=== PATIENT | male | born 1945 | race Caucasian/White ===

== ENCOUNTER 2017-02-06 09:41 | Observation (INO) ==
[2017-02-06] MEDS ORDERED: ONDANSETRON 4 MG/2 ML VIAL IV PRN ×2 (10:02→12:12)
[2017-02-06] MEDS ORDERED: ALUM/MAG/SIMETH/LIDO VISC 1:1 30 ML BOTTLE PO STA (10:02)
[2017-02-06] MEDS ORDERED: MORPHINE 2 MG/1 ML SYRINGE IV PRN (10:02)
[2017-02-06] MEDS ORDERED: ENOXAPARIN 100 MG/ML SYRINGE SUBCUT STA (10:02)
[2017-02-06] MEDS ORDERED: NITROGLYCERIN SL 0.4 MG TABLET SL PRN (10:02)
[2017-02-06] MEDS ORDERED: ASPIRIN 325 MG TABLET PO STA (10:02)
[2017-02-06] MEDS ORDERED: NITROGLYCERIN 2% OINT 1 INCH/GM PACK TOP STA (10:02)
--- NOTE | 2017-02-06 10:05 | EKG Report ---
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
--- NOTE | 2017-02-06 10:19 | Emergency Department Note ---
Wale Fonseca Manpreet, am scribing for, and in the presence of, Jasper Ledezma MD 10: 06. Brisa Fonseca James D, MD, personally performed the services described in this documentation, ascribed by Vincent Echevarria in my presence, and it is both accurate and complete . Arrival - Arrival Chief Complaint: Chest Pain Stated Complaint: chest pain ED Nursing Triage Note: Left sided chest pain onset x 1 week - pt denies any SOB - pt states that he does have stents and is a pt of Dr Preciado. 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 Pt states the pain has been there piror to this week but worsened over this past week. Pt denies SOB, N/V/D, or anything to worsen this pain. Pt took 2 NTG's en route to the ED with reilef but the pain has came back. Pt states the pain "lasts a second or two then goes but comes about in about 3 or 4 minutes." Pt has had cardiac stents before but states this pain is different from the pain prior to the stents. Pt's spool cleaner hand is Dr. Preciado. No other pains/complaints reported to the ED. Onset (ago): week(s) Consistency: constant, intermittent Severity: moderate Severity scale (1-10): 4 Quality: sharp Allergies/Adverse Reactions: Allergies Allergy/AdvReac Type Severity Reaction Status Date / Time No Known Allergies Allergy Verified 11/19/16 12:01 Home Medications: Home Medications Medication Instructions Recorded Confirmed Type Atorvastatin [Lipitor] 80 mg PO BEDTIME 11/17/16 11/19/16 History Carvedilol 12.5 mg PO BID 11/17/16 11/19/16 History Clopidogrel [Plavix] 75 mg PO DAILY 11/17/16 11/19/16 History Gabapentin Cap/Tab [Neurontin 600 mg PO BID 11/17/16 11/19/16 History Cap/Tab] Glimepiride 4 mg PO DAILY 11/17/16 11/19/16 History Insulin Lispro Prot/Lisp 75/25 25 unit SUBCUT QPM 11/17/16 11/19/16 History [HumaLOG Mix 75/25] Insulin Lispro Prot/Lisp 75/25 75 unit SUBCUT QAM 11/17/16 11/19/16 History [HumaLOG Mix 75/25] Nitroglycerin [Nitroglycerin SL 0.4 mg SL Q5M PRN 11/17/16 11/19/16 History Tab] Omeprazole 40 mg PO BID 11/17/16 11/19/16 History Valsartan/Hydrochlorothiazide 1 each PO DAILY 11/17/16 11/19/16 History [Valsartan-Hctz 320-25 mg Tab] amLODIPine [Norvasc] 10 mg PO DAILY 11/17/16 11/19/16 History hydrALAZINE TAB [Apresoline Tab] 100 mg PO TID 11/17/16 11/19/16 History Aspirin EC Tab 81 mg PO DAILY #30 tablet 11/20/16 Rx Potassium Chloride 20 meq PO BID #60 tablet 11/20/16 Rx Review of System - Review of System ROS unobtainable: due to encephalopathy - Review of System Constitutional: Absent: chills, diaphoresis, fever Respiratory: Absent: cough, respiratory distress, wheezing Cardiovascular: Present: chest pain Gastrointestinal: Absent: abdominal pain, nausea, vomiting, diarrhea Musculoskeletal: Absent: arm pain, back pain Neurological: Absent: headache, weakness, numbness, paresthesias Medical,Surgical,& Family Hx - Medical History Cardio: History of: Hypertension, Cardiovascular Problems (cardiac stents 2016) Neurology: History of: Cerebrovascular Accident (2014) No history of: Seizures Endocrine: History of: Diabetes Mellitus (IDDM), Dyslipidemia Rheumatology: History of;: Gout Respiratory: History of: Obstructive Sleep Apnea Genitourinary: History of: Kidney Stones Gastrointestinal: History of: GERD - Surgical History Abdominal Surgeries: Surgical HX of: Colonoscopy, EGD - Family History Family History: Reports;: Family Heart Disease Denies;: Family Cancer, Family Diabetes, Family Stroke - Social History Smoking Status: Never smoker Frequency of Alcohol Use: None Type of Drug Use: None Exam Vital Signs: Vital Signs Temperature 96.9 F L 02/06/17 09:45 Pulse Rate 56 L 02/06/17 09:45 Respiratory Rate 20 02/06/17 09:45 Blood Pressure 141/69 02/06/17 09:45 O2 Sat by Pulse Oximetry 97 02/06/17 09:45 GENERAL: This is a well-nourished well-developed overly obese white male in no apparent distress. VITAL SIGNS: Reviewed HEENT: Head is atraumatic and normocephalic. Pupils are equal round react to light. Extraocular movements are intact. Oropharynx is benign with moist mucous membranes. NECK: Neck is soft and supple without tenderness. There are no masses. There is no lymphadenopathy. No rash on chest wall. LUNGS: Lungs are clear to auscultation. Chest rises symmetrically. There is no chest wall tenderness. CV: Heart is regular rate and rhythm without murmurs rubs or gallops. ABDOMEN: Abdomen is soft, nontender to palpation. There are no abdominal abnormal masses palpated. There is no organomegaly. Bowel sounds are present and active. SKIN: Skin is warm and dry. No rash. EXTREMITIES: Patient has full range of motion without tenderness. There is no pedal edema. NEUROLOGIC: Awake alert and oriented 4. Cranial nerves II through XII are intact. Motor is 5 over 5 in all extremities bilaterally. Deep tendon reflexes are 2+ and bilaterally equal. Course - Consultations Consultation #1: Discussed with hospitalist. Patient will be admitted to their service. Time: 11:26 Results - Labs CBC & BMP: 02/06/17 10:16 02/06/17 10:16 Lab Results: I have reviewed the patients labs Labs: Laboratory Tests 02/06/17 10:16 Troponin I < 0.015 - EKG EKG results: interpreted by ERMD - Impressions EKG: Sinus bradycardia with first-degree AV block, left axis deviation, nonspecific ST-T wave changes. Disposition Clinical Impression: Chest pain, Coronary artery disease, Diabetes mellitus, Essential hypertension Case discussed with: patient Condition: Stable
--- NOTE | 2017-02-06 10:25 | XRay Report ---
XR chest 2V Indication: Chest pain Comparison: 19 November 2016 Findings: The heart and mediastinum are normal in size and configuration. The pulmonary vascularity is normal in caliber. No lung infiltrates, effusions, pneumothorax or other abnormality is demonstrated. Impression: No acute cardiopulmonary findings. PROCEDURE INTERPRETED AT [facility] DEPARTMENT OF RADIOLOGY Final Report Signed by: Dr. Jason Cabrera
[2017-02-06] MEDS ORDERED: NITROGLYCERIN 2% OINT 1 INCH/GM PACK TOP ONE (10:30)
[2017-02-06] MEDS ORDERED: ASPIRIN 325 MG TABLET ONE (10:30)
[2017-02-06] MEDS ORDERED: ENOXAPARIN 120 MG/0.8 ML SYRINGE SUBCUT ONE (10:30)
[2017-02-06] MEDS ORDERED: ALUM/MAG/SIMETH/LIDO VISC 1:1 30 ML BOTTLE PO ONE (10:31)
[2017-02-06 10:34] LABS: Basophils # 0.1 10*3/uL (0.0-0.2); Basophils % 0.6 % (0.0-0.8); Eosinophils # 0.1 10*3/uL (0.0-0.87); Eosinophils % 1.8 % (0.00-10.9); Hematocrit 45.2 VOL% (42.0-52.0); Hemoglobin 14.7 GM/DL (14.0-18.0); Immature Granulocytes % 0.5 %; Immature Granulocytes Absolute 0.04 #; Lymphocytes % 12.8 % (21.2-54.2); Mean Corpuscular HGB Conc 32.5 GM/DL (32-36); Mean Corpuscular Hemoglobin 26 PG (27-34); Mean Corpuscular Volume 81.3 FL (87-102); Mean Platelet Volume 10.9 FL (9.6-12.0); Monocytes # 0.4 10*3/uL (0.11-0.8); Monocytes % 5.6 % (1.7-12.7); Neutrophils # 6.2 10*3/uL (1.4-7.4); Neutrophils % 78.7 % (38.7-73.9); Platelet Count 237 T/CUMM (130-400); Red Blood Count 5.56 MC/CUMM (3.8-5.5); Red Cell Distribution Width 14.7 % (9.3-17.3); White Blood Count 7.9 T/CUMM (4-12)
[2017-02-06 10:55] LABS: Albumin 3.2 G/DL (3.4-5.0); Bilirubin,Total 0.7 MG/DL (0.2-1.0); Calcium 8.7 MG/DL (8.5-10.1); Osmolality,Calculated 288.3 MOS/KG (273-304); Potassium 4.3 MMOL/L (3.5-5.1); Total Protein 6.4 G/DL (6.4-8.3)
[2017-02-06 11:02] LABS: PT Patient Result 10.4 SECS
--- NOTE | 2017-02-06 12:05 | Hospitalist History & Physical ---
<Wlila Singh - Last Filed: 02/06/17 11:52> Assessment and Plan - Time spent with patient Time spent with patient: Greater than 30 minutes (1) Chest pain Status: Acute Assessment and plan: Admit 02/06/17 repeat serial troponin repeat EKG in a.m. repeat labs in a.m. consult cardiology (Dr Preciado pt) ECHO Lipid panel in a.m. A1c in a.m. will discuss with Dr May for further recommendations with care. Current Visit: Yes (2) Coronary artery disease Status: Chronic Current Visit: Yes (3) Diabetes mellitus Status: Chronic Current Visit: Yes History of Present Illness Chief complaint: chest pain History of present illness: Mr. Lemus is a 71 year old white male w/PMHx Diabetes, HTN, ESPERANZA, Heart Catherization October/2016 with stents, Gout, CVA 2015 presented to the ED for further evaluation of sharp left sided chest pain that does not radiate to arm, shoulder, jaw that has been intermittent for a couple of days. Denies shortness of breath, nausea, vomiting, cough, fever, chills, dizziness, headaches, or associated chest tightness. He reports recent upper scope at [place] with findings significant for an ulcer and was placed on PPI. IN ED: troponin negative, H&H stable, BUN 20, Creatinine 1.60, Glucose 193, Alkaline Phos 147. CXR: nothing acute. EKG per ER MR: sinus bradycardia rate 56 w/first degree, left axis deviation, nonspecific ST-T wave changes. Hospital Medicine consulted for further evaluation. Admit patient to monitored bed., consult Cardiology. PCP: Dr Morales Rn Picu: Dr Preciado After discussion with Dr Ledezma in the ED and Dr May with Hospital Medicine, it was agreed to admit patient for further evaluation. Home medications will be reviewed and reconciliation to follow. Home Medications Medication Instructions Recorded Confirmed Type Atorvastatin [Lipitor] 80 mg PO BEDTIME 11/17/16 02/06/17 History Carvedilol 12.5 mg PO BID 11/17/16 02/06/17 History Clopidogrel [Plavix] 75 mg PO QAM 11/17/16 02/06/17 History Gabapentin Cap/Tab [Neurontin 600 mg PO BID 11/17/16 02/06/17 History Cap/Tab] Glimepiride 4 mg PO QAM 11/17/16 02/06/17 History Insulin Lispro Prot/Lisp 75/25 25 unit SUBCUT QPM 11/17/16 02/06/17 History [HumaLOG Mix 75/25] Insulin Lispro Prot/Lisp 75/25 75 unit SUBCUT QAM 11/17/16 02/06/17 History [HumaLOG Mix 75/25] Nitroglycerin [Nitroglycerin SL 0.4 mg SL Q5M PRN 11/17/16 02/06/17 History Tab] Omeprazole 40 mg PO BID 11/17/16 02/06/17 History Valsartan/Hydrochlorothiazide 1 each PO QAM 11/17/16 02/06/17 History [Valsartan-Hctz 320-25 mg Tab] amLODIPine [Norvasc] 10 mg PO QAM 11/17/16 02/06/17 History hydrALAZINE TAB [Apresoline Tab] 100 mg PO TID 11/17/16 02/06/17 History Potassium Chloride 20 meq PO BID #60 tablet 11/20/16 02/06/17 Rx Aspirin EC Tab 81 mg PO QAM 02/06/17 02/06/17 History Allergies Allergy/AdvReac Type Severity Reaction Status Date / Time No Known Allergies Allergy Verified 11/19/16 12:01 Medical,Surgical,& Family Hx - Medical History Cardio: History of: Hypertension, Cardiovascular Problems (cardiac stents 2016) Neurology: History of: Cerebrovascular Accident (2014) No history of: Seizures Endocrine: History of: Diabetes Mellitus (IDDM), Dyslipidemia Rheumatology: History of;: Gout Respiratory: History of: Obstructive Sleep Apnea Genitourinary: History of: Kidney Stones Gastrointestinal: History of: GERD - Surgical History Abdominal Surgeries: Surgical HX of: Colonoscopy, EGD - Family History Family History: Reports;: Family Heart Disease Denies;: Family Cancer, Family Diabetes, Family Stroke - Social History Smoking Status: Never smoker Frequency of Alcohol Use: None Type of Drug Use: None Marital Status: Single Lives With:: lives with his brother and brother's Functional capacity: independent ambulation 12 point system: reviewed and no additional remarkable complaints except as stated - Constitutional Constitutional: Absent: chills, fever(s), headache(s) - Cardiovascular Cardiovascular: Present: chest pain at rest, chest pain with activity. Absent: dyspnea, dyspnea on exertion, edema, radiating jaw, neck or arm pain, lightheadedness - Respiratory Respiratory: Absent: cough, dyspnea, dyspnea on exertion - Gastrointestinal Gastrointestinal: Absent: abdominal pain Exam - Constitutional Vitals: Period Temp Pulse Resp BP Sys/[place] Pulse Ox Last 24 Hr 96.9 F-96.9 F 50-56 18-20 125-171/60-94 97-99 General appearance: no acute distress, over weight - Head Head exam: Present: normal inspection - Eye Eye exam: Present: EOMI Pupils: Present: LESTER - ENT ENT exam: Present: normal exam - Neck Neck exam: Present: normal inspection. Absent: thyromegaly - Respiratory Respiratory exam: Present: clear to auscultation bilaterally. Absent: rhonchi, stridor, wheezes - Cardiovascular Cardiovascular exam: Present: regular rate and rhythm - GI/Abdominal GI/Abdominal exam: Present: normal bowel sounds, soft. Absent: tenderness, rebound - Extremities Exam Extremities exam: Present: normal inspection, full ROM. Absent: edema - Neurological Exam Neurological exam: Present: alert, oriented X3, CN II-XII intact - Psychiatric Psychiatric exam: Present: normal affect, normal mood. Absent: agitated, anxious - Skin Skin exam: Present: normal color, warm, dry Results - Labs CBC & BMP: 02/06/17 10:16 02/06/17 10:16 Lab Results: I have reviewed the past 24 hour labs - EKG EKG results: interpreted by SHIRA <Sharron May - Last Filed: 02/06/17 13:36> Assessment and Plan (1) Chest pain Status: Acute Assessment and plan: atypical chest pain, ekg changes, first set troponins negative, Cardiology consulted Current Visit: Yes (2) Essential hypertension Status: Acute Assessment and plan: norvasc and hydralazine Current Visit: Yes (3) Diabetes mellitus Status: Chronic Assessment and plan: cont insulin Current Visit: Yes (4) Obstructive sleep apnea Status: Chronic Assessment and plan: cpap at night Current Visit: No (5) Renal insufficiency Status: Chronic Assessment and plan: hold zaida/hctz repeat in am Current Visit: No History of Present Illness History of present illness: Mr. Lemus is a 71 year old male seen and examined. Symptoms are not consistent with ND but EKG is changed from October 2016. I have asked Cardiology to see him. Morbid obesity but has been in Cardiopulmonary for 7 weeks and does not get Chest pain on the treadmill. Exam - Constitutional Vitals: Period Temp Pulse Resp BP Sys/[place] Pulse Ox Last 24 Hr 96.9 F-96.9 F 50-56 18-20 125-171/60-94 97-99 General appearance: morbidly obese - Head Head exam: Present: normocephalic - Eye Eye exam: Absent: scleral icterus Pupils: Present: normal accommodation - ENT ENT exam: Present: normal external ear exam - Neck Neck exam: Absent: lymphadenopathy - Cardiovascular Cardiovascular exam: Present: bradycardia. Absent: systolic murmur Results - Labs CBC & BMP: 02/06/17 10:16 02/06/17 10:16 - EKG EKG shows: bradycardia, sinus rhythm (q waves in lead III and V1 and V2.) - Diagnostic Findings Procedure: Chest x-ray: report reviewed by me (nothing acute )
[2017-02-06] MEDS ORDERED: ACETAMINOPHEN 325 MG TABLET PO PRN (12:12)
[2017-02-06] MEDS ORDERED: INSULIN LISPRO 100 UNIT/ML SUBCUT ONE (12:12)
[2017-02-06] MEDS ORDERED: MAGNESIUM HYDROXIDE SUSP 30 ML UDCUP PO PRN (12:12)
--- NOTE | 2017-02-06 13:10 | EKG Report ---
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
--- NOTE | 2017-02-06 15:45 | EKG Report ---
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
--- NOTE | 2017-02-06 16:35 | Cardiology Consult Note ---
Assessment and Plan - Time spent with patient Time spent with patient: Greater than 30 minutes (Due to assessment, plan, and documentation.) (1) Chest pain Status: Acute Assessment and plan: See plan of care listed below. Current Visit: Yes (2) Coronary artery disease Status: Chronic Assessment and plan: See plan of care listed below. Current Visit: Yes (3) Essential hypertension Status: Chronic Assessment and plan: See plan of care listed below. Current Visit: Yes (4) Type 2 diabetes mellitus Status: Chronic Assessment and plan: See plan of care listed below. Current Visit: No (5) Obstructive sleep apnea Status: Chronic Assessment and plan: See plan of care listed below. Current Visit: No (6) History of CVA (cerebrovascular accident) Status: Chronic Assessment and plan: See plan of care listed below. Current Visit: No (7) Obesity Status: Chronic Assessment and plan: See plan of care listed below. Current Visit: Yes Qualifiers: Obesity classification: adult class 3 (BMI >= 40) Body mass index: BMI 40.0 -44.9 (8) History of esophageal ulcer Status: Chronic Assessment and plan: See plan of care listed below. Current Visit: Yes (9) Renal insufficiency Status: Chronic Assessment and plan: See plan of care listed below. Current Visit: No History of Present Illness - Data of Consult Patient: known to practice within the last 3 years Consult date: 02/06/17 Requesting Physician: Willa Singh Primary care physician: Ruddy Morales - Consult Narrative Reason for consult: Chest pain History of present illness: Colliery Clerk: Dr. Preciado PCP: Dr. Morales Mr. Lemus is a 71 year old male with history of coronary artery disease, prior CVA (2012 and 2014), hypertension, type 2 diabetes, obstructive sleep apnea (compliant with CPAP nightly), venous insufficiency, and obesity. He is a lifetime non-smoker. He had two-vessel PCI done with stenting of a proximal LAD stenosis and balloon angioplasty of the diagonal stenosis which was done 11/19/2016. The stent was unable to be passed to the diagonal stenosis and a 40% residual was noted. He was noted to have an ejection fraction in the 70% range. Mr. Lemus presents to the emergency room today for complaints of chest pain that began last weekend. He reports he has had chest pain on a daily basis since that time. He reports that these episodes occur at random and have no association with rest or exertion although he does note to they tend to occur more when he is sitting still. He describes them as midsternal and beneath his left breast and location. He reports they are a sharp stabbing pain lasting 2- 3 seconds before going away. He reports sometimes they continually come and go for an extended period of time But do seem to be temporarily relieved with nitroglycerin. He states when he takes a nitroglycerin his pain improves but then usually comes back within about 30 minutes. He reports he has been taking 1-2 nitroglycerin every day since last weekend and notes yesterday evening he took 2 nitroglycerin on 2 separate occasions approximately 30 minutes apart and he was eventually able to go to sleep. This morning he states he was on his way to cardiac rehab and had some episodes of chest pain and sounded to go home to the emergency room. He has no associated symptoms of shortness of breath, diaphoresis, nausea, vomiting, dizziness, lightheadedness, or syncope with this pain. He can identify and no aggravating factors and reports he has been doing fairly well with cardiac rehab recently and does not usually have any chest pain or extreme shortness of breath during cardiac rehab sessions. He denies having missed any doses of his aspirin or Plavix. He does not seem to think that this pain is necessarily worse or better when eating but does mention that he saw a GI doctor at [place] in June or July of this year and was told that he had an ulcer at the base of his esophagus. He was placed on omeprazole 40 mg p.o. twice daily and states that he ran out about a week ago. Upon arrival, his EKG shows sinus bradycardia with first-degree AV block and nonspecific ST-T abnormality. He has had 2 sets of negative cardiac biomarkers. His sodium is 141, potassium 4.3, creatinine 1.6 with GFR 62, H&H is stable at 14.7 and 45.2. He denies any recent fever, chills, diarrhea, constipation, melena, hematochezia, hemoptysis, painful inspiration, coughing, hematemesis, palpitations, radiating jaw, neck, or arm pain, epistaxis. IMPRESSION/PLAN: 1. ATYPICAL CHEST PAIN: Suspicious for GI etiology. We will continue to cycle cardiac biomarkers and EKGs and follow trend. His pain lasts 2-3 seconds at a time and has been recurrent despite the use of nitroglycerin. He may need follow-up with GI. Will further discuss with Dr. Preciado and await additional recommendations. 2. CORONARY ARTERY DISEASE: Continue aspirin, Plavix, statin. Beta-tez on hold due to sinus bradycardia. 3. HYPERTENSION: Currently well controlled on current therapy. We will continue to monitor and adjust accordingly. 4. NIDDM: He has been started on Accu-Cheks with sliding scale insulin. 5. OBSTRUCTIVE SLEEP APNEA: Continue CPAP nightly. 6. PRIOR CVA: In 2012 2014. No significant residual deficit noted. 7. OBESITY: Encouraged lifestyle modifications with diet and exercise. 8. HISTORY OF ESOPHAGEAL ULCER: Continue PPI. 9. HISTORY OF RENAL INSUFFICIENCY: Follow BMP. Will avoid nephrotoxic agents. CC: Sharron May MD - Home Medications and Allergies Home Medications: Home Medications Medication Instructions Recorded Confirmed Type Atorvastatin [Lipitor] 80 mg PO BEDTIME 11/17/16 02/06/17 History Carvedilol 12.5 mg PO BID 11/17/16 02/06/17 History Clopidogrel [Plavix] 75 mg PO QAM 11/17/16 02/06/17 History Gabapentin Cap/Tab [Neurontin 600 mg PO BID 11/17/16 02/06/17 History Cap/Tab] Glimepiride 4 mg PO QAM 11/17/16 02/06/17 History Insulin Lispro Prot/Lisp 75/25 25 unit SUBCUT QPM 11/17/16 02/06/17 History [HumaLOG Mix 75/25] Insulin Lispro Prot/Lisp 75/25 75 unit SUBCUT QAM 11/17/16 02/06/17 History [HumaLOG Mix 75/25] Nitroglycerin [Nitroglycerin SL 0.4 mg SL Q5M PRN 11/17/16 02/06/17 History Tab] Omeprazole 40 mg PO BID 11/17/16 02/06/17 History Valsartan/Hydrochlorothiazide 1 each PO QAM 11/17/16 02/06/17 History [Valsartan-Hctz 320-25 mg Tab] amLODIPine [Norvasc] 10 mg PO QAM 11/17/16 02/06/17 History hydrALAZINE TAB [Apresoline Tab] 100 mg PO TID 11/17/16 02/06/17 History Potassium Chloride 20 meq PO BID #60 tablet 11/20/16 02/06/17 Rx Aspirin EC Tab 81 mg PO QAM 02/06/17 02/06/17 History Allergies/Adverse Reactions: Allergies Allergy/AdvReac Type Severity Reaction Status Date / Time No Known Allergies Allergy Verified 11/19/16 12:01 12 point system: reviewed and no additional remarkable complaints except as stated Medical,Surgical,& Family Hx - Medical History Cardio: History of: CAD, Hypertension, Cardiovascular Problems (cardiac stents 2016) Neurology: History of: Cerebrovascular Accident (2014) No history of: Seizures Endocrine: History of: Diabetes Mellitus (IDDM), Dyslipidemia Rheumatology: History of;: Gout Respiratory: History of: Obstructive Sleep Apnea Genitourinary: History of: Kidney Stones Gastrointestinal: History of: GERD, GI Problems (History of esophageal ulcer) - Surgical History Cardiac Surgeries: Sugical HX of: Cardiac Catheterization (Status post PTCA and stent October 2016) Abdominal Surgeries: Surgical HX of: Colonoscopy, EGD - Family History Family History: Reports;: Family Heart Disease Denies;: Family Cancer, Family Diabetes, Family Stroke - Social History Smoking Status: Never smoker Frequency of Alcohol Use: None Type of Drug Use: None Marital Status: Single Lives With:: Alone Functional capacity: independent ambulation Physical Examination Vital Signs Temp Pulse Resp BP Pulse Ox 96.9 F L 56 L 20 141/69 97 02/06/17 09:45 02/06/17 09:45 02/06/17 09:45 02/06/17 09:45 02/06/17 09:45 Exam: General appearance: Appears well. Pleasant and cooperative. Overweight, no acute distress. Head exam: Present: normal inspection, normocephalic, atraumatic. Absent: hematoma, laceration Eye exam: Present: EOMI. Absent: conjunctival injection, nystagmus, periorbital swelling, scleral icterus, laceration to eyelids, jaundice Pupils: Present: PERRL. Absent: constricted, dilated, fixed, irregular, unequal ENT exam: Present: normal exam, normal external ear exam, mucous membranes moist. Neck exam: Present: normal inspection, midline trachea. Absent: masses, lymphadenopathy, tenderness, thyromegaly, carotid bruit Respiratory exam: Present: clear to auscultation bilaterally. Absent: accessory muscle use, chest wall tenderness, rales, rhonchi, wheezing. Cardiovascular exam: Present: regular rate and rhythm. Absent: gallop, JVD, rubs, murmur GI/Abdominal exam: Present: normal bowel sounds, soft. Absent: distended, firm , hernia, mass, tenderness. Extremities exam: Present: Normal Gait, No Clubbing, No Cyanosis, Upper Extr. Pulses 2+, Lower Extr. Pulses 2+, 1-2+ BLE edema. Capillary refill less than 3 seconds. Musculoskeletal: Present: No Fluid Collection, No Pain, Normal Range of Motion Back exam: Present: normal inspection. Absent: muscle spasm, vertebral tenderness Neurological exam: Present: awake, alert, oriented X3, Moves all extremities well without hemiparesis or paralysis. Grossly intact without resting or essential tremor Psychiatric exam: Present: normal affect, normal mood Skin exam: Present: normal color, warm, dry, intact. Absent: cyanosis, diaphoretic, rash, urticaria Result/EKG - Labs CBC & BMP: 02/06/17 10:16 02/06/17 10:16 Lab Results: I have reviewed the past 24 hour labs Labs: Laboratory Results - last 24 hr 02/06/17 02/06/17 02/06/17 10:16 10:16 10:16 WBC 7.9 RBC 5.56 H Hgb 14.7 Hct 45.2 MCV 81.3 L MCH 26 L MCHC 32.5 RDW 14.7 Plt Count 237 MPV 10.9 Neut % (Auto) 78.7 H Lymph % (Auto) 12.8 L [place] % (Auto) 5.6 Eos % (Auto) 1.8 Baso % (Auto) 0.6 Neut # (Auto) 6.2 Lymph # (Auto) 1.0 L [place] # (Auto) 0.4 Eos # (Auto) 0.1 Baso # (Auto) 0.1 Immature Gran % 0.5 Nucleated RBC % 0.0 Immature Gran # 0.04 Nucleated RBCs # 0.00 Immature Plt Fraction 0.0 INR 1.0 PT Patient/Control Mix 10.4 Circ Anticoag PTT 28.0 Sodium 141 Potassium 4.3 Chloride 106 Carbon Dioxide 28 Anion Gap 11.3 BUN 20 H Creatinine 1.60 H GFR Calculation 62 BUN/Creatinine Ratio 12.00 Glucose 193 H Calculated Osmolality 288.3 Calcium 8.7 Total Bilirubin 0.70 AST 25 ALT 20 Alkaline Phosphatase 147 H Troponin I Total Protein 6.4 Albumin 3.2 L Globulin 3.2 Albumin/Globulin Ratio 1.0 L 02/06/17 02/06/17 10:16 13:24 WBC RBC Hgb Hct MCV MCH MCHC RDW Plt Count MPV Neut % (Auto) Lymph % (Auto) [place] % (Auto) Eos % (Auto) Baso % (Auto) Neut # (Auto) Lymph # (Auto) [place] # (Auto) Eos # (Auto) Baso # (Auto) Immature Gran % Nucleated RBC % Immature Gran # Nucleated RBCs # Immature Plt Fraction INR PT Patient/Control Mix Circ Anticoag PTT Sodium Potassium Chloride Carbon Dioxide Anion Gap BUN Creatinine GFR Calculation BUN/Creatinine Ratio Glucose Calculated Osmolality Calcium Total Bilirubin AST ALT Alkaline Phosphatase Troponin I < 0.015 < 0.015 Total Protein Albumin Globulin Albumin/Globulin Ratio - EKG EKG results: interpreted by me, sinus rhythm EKG shows: bradycardia (With first-degree AV block and nonspecific ST abnormality.)
--- NOTE | 2017-02-06 16:57 | ECHO Report ---
Mathew Lemus Exam Date: 02/06/2017 12:41 Referring Physician: Technologist: Age: 71 Ht (in): Wt (lb): Gender: M Exam Location: [facility] Echo Indications: BP: 125 / 60 HR: 53 Rhythm: Sinus Technical Quality: Technically difficult study IMPRESSIONS Mildly increased left ventricular cavity size. Mild concentric left ventricular hypertrophy with diastolic dysfunction. Left ventricular ejection fraction is estimated at 50-55 %. Normal right ventricular size. Normal right atrial size. The left atrium is mild - moderately enlarged. Mildly thickened mitral valve with mild mitral regurgitation. Mild aortic valve stenosis. Aortic valve area is 2.3 cm. Aortic valve mean gradient is 12 mmHg. Trace to mild aortic valve regurgitation. Morphologically normal tricuspid valve. Trace tricuspid valve regurgitation. Morphologically normal pulmonic valve. Trace pulmonary valve regurgitation. No pericardial effusion. Normal size aortic root and proximal ascending aorta. MEASUREMENTS (Male / Female) Normal Values 2D ECHO LV Diastolic Diameter PLAX 5.5 cm 4.2 - 5.9 / 3.9 - 5.3 cm LV Systolic Diameter PLAX 3.4 cm IVS Diastolic Thickness 1.5 cm 0.6 - 1.0 / 0.6 - 0.9 cm LVPW Diastolic Thickness 1.2 cm 0.6 - 1.0 / 0.6 - 0.9 cm Aortic Root Diameter 3.1 cm LA Systolic Diameter LX 4.7 cm 3.0 - 4.0 / 2.7 - 3.8 cm FINDINGS Left Ventricle Mildly increased left ventricular cavity size. Mild concentric left ventricular hypertrophy with diastolic dysfunction. Left ventricular ejection fraction is estimated at 50-55 %. Right Ventricle Normal right ventricular size. Right Atrium Normal right atrial size. Left Atrium The left atrium is mild - moderately enlarged. Mitral Valve Mildly thickened mitral valve with mild mitral regurgitation. Aortic Valve Mild aortic valve stenosis. Aortic valve area is 2.3 cm. Aortic valve mean gradient is 12 mmHg. Trace to mild aortic valve regurgitation. Tricuspid Valve Morphologically normal tricuspid valve. Trace tricuspid valve regurgitation. Pulmonic Valve Morphologically normal pulmonic valve. Trace pulmonary valve regurgitation. Pericardium No pericardial effusion. Aorta Normal size aortic root and proximal ascending aorta. Woody Preciado MD (Electronically Signed) Final Date: 06 February 2017 16:56
[2017-02-06] MEDS ORDERED: INSULIN LISPRO PROTAMINE/LISPRO 75/25 100 UNIT/ML SUBCUT SCH (19:00)
[2017-02-06] MEDS ORDERED: ATORVASTATIN 80 MG TABLET PO SCH (21:00)
[2017-02-06] MEDS: PANTOPRAZOLE 40 MG TABLET PO SCH (21:38)
[2017-02-07 04:13] LABS: Basophils % 0.5 % (0.0-0.8); Eosinophils # 0.2 10*3/uL (0.0-0.87); Eosinophils % 2.1 % (0.00-10.9); Hematocrit 43.9 VOL% (42.0-52.0); Hemoglobin 14.5 GM/DL (14.0-18.0); Immature Granulocytes % 0.4 %; Immature Granulocytes Absolute 0.03 #; Lymphocytes # 1.3 10*3/uL (1.4-4.0); Lymphocytes % 16.8 % (21.2-54.2); Mean Corpuscular Hemoglobin 27 PG (27-34); Mean Corpuscular Volume 80.7 FL (87-102); Mean Platelet Volume 11.6 FL (9.6-12.0); Monocytes # 0.6 10*3/uL (0.11-0.8); Monocytes % 7.4 % (1.7-12.7); Neutrophils # 5.5 10*3/uL (1.4-7.4); Neutrophils % 72.8 % (38.7-73.9); Platelet Count 239 T/CUMM (130-400); Red Blood Count 5.44 MC/CUMM (3.8-5.5); White Blood Count 7.6 T/CUMM (4-12)
[2017-02-07 04:46] LABS: Magnesium 2.5 MG/DL (1.8-2.4); Osmolality,Calculated 283.1 MOS/KG (273-304); Potassium 3.3 MMOL/L (3.5-5.1); Risk Ratio 3.23; VLDL CHOLESTEROL 36.6 MG/DL
[2017-02-07] MEDS ORDERED: GLIMEPIRIDE 4 MG TABLET PO SCH (09:00)
[2017-02-07] MEDS ORDERED: CLOPIDOGREL 75 MG TABLET PO SCH (09:00)
[2017-02-07] MEDS ORDERED: ASPIRIN EC 81 MG TABLET PO SCH (09:00)
[2017-02-07] MEDS ORDERED: INSULIN LISPRO PROTAMINE/LISPRO 75/25 100 UNIT/ML SUBCUT SCH (09:00)
[2017-02-07] MEDS ORDERED: PANTOPRAZOLE 40 MG TABLET PO SCH (09:00)
[2017-02-07] MEDS ORDERED: amLODIPine 10 MG TABLET PO SCH (09:00)
--- NOTE | 2017-02-07 09:04 | EKG Report ---
Stationary ECG Study [facility] Test Date: 02/07/2017 9:02:23 AM Pat Name: MICAH KEITH Department: Room: 243 Gender: M Induction Coordination Engineer: JOSIE : 1945 Requested by: Willa Singh Order Number: [id number] Zeb MD: GEMA MORAN Intervals [place] Rate: 55 P: 80 RI: 260 QRS: -47 QRSD: 109 T: 99 QT: 437 QTc: 426 Interpretive Statements SINUS RHYTHM WITH PROLONGED RI INTERVAL MARKED LEFT AXIS DEVIATION NONSPECIFIC T-WAVE ABNORMALITY Electronically Signed On 02-07-17 11:23:14 CDT by GEMA MORAN [email or web address]
[2017-02-07] MEDS ORDERED: MAGNESIUM SULF RIDER 2 GM in PREMIX 1 EACH IV PRN (09:05)
[2017-02-07] MEDS ORDERED: MAGNESIUM SULF RIDER 4 GM in PREMIX 1 EACH IV PRN (09:05)
--- NOTE | 2017-02-07 09:07 | Cardiology Progress Note ---
Assessment and Plan (1) Chest pain Status: Acute Assessment and plan: His chest pain is not typical for angina and I think it is related to gastroesophageal reflux disease. From my standpoint he can be discharged at her convenience. We will see him for follow-up as scheduled. Current Visit: Yes (2) Coronary artery disease Status: Chronic Current Visit: Yes Cardiology - PN: Subj Interval history: Mr. Lemus is a 71 year old male with history of coronary artery disease, prior CVA (2012 and 2014), hypertension, type 2 diabetes, obstructive sleep apnea (compliant with CPAP nightly), venous insufficiency, and obesity. He is a lifetime non-smoker. He had two-vessel PCI done with stenting of a proximal LAD stenosis and balloon angioplasty of the diagonal stenosis which was done 11/19/2016. The stent was unable to be passed to the diagonal stenosis and a 40% residual was noted. He was noted to have an ejection fraction in the 70% range. Mr. Lemus presents to the emergency room today for complaints of chest pain that began last weekend. He reports he has had chest pain on a daily basis since that time. He reports that these episodes occur at random and have no association with rest or exertion although he does note to they tend to occur more when he is sitting still. He describes them as midsternal and beneath his left breast and location. He reports they are a sharp stabbing pain lasting 2- 3 seconds before going away. He reports sometimes they continually come and go for an extended period of time But do seem to be temporarily relieved with nitroglycerin. He states when he takes a nitroglycerin his pain improves but then usually comes back within about 30 minutes. He reports he has been taking 1-2 nitroglycerin every day since last weekend and notes yesterday evening he took 2 nitroglycerin on 2 separate occasions approximately 30 minutes apart and he was eventually able to go to sleep. This morning he states he was on his way to cardiac rehab and had some episodes of chest pain and sounded to go home to the emergency room. He has no associated symptoms of shortness of breath, diaphoresis, nausea, vomiting, dizziness, lightheadedness, or syncope with this pain. He can identify and no aggravating factors and reports he has been doing fairly well with cardiac rehab recently and does not usually have any chest pain or extreme shortness of breath during cardiac rehab sessions. He denies having missed any doses of his aspirin or Plavix. He does not seem to think that this pain is necessarily worse or better when eating but does mention that he saw a GI doctor at [place] in June or July of this year and was told that he had an ulcer at the base of his esophagus. He was placed on omeprazole 40 mg p.o. twice daily and states that he ran out about a week ago. Upon arrival, his EKG shows sinus bradycardia with first-degree AV block and nonspecific ST-T abnormality. He has had 2 sets of negative cardiac biomarkers. His sodium is 141, potassium 4.3, creatinine 1.6 with GFR 62, H&H is stable at 14.7 and 45.2. He denies any recent fever, chills, diarrhea, constipation, melena, hematochezia, hemoptysis, painful inspiration, coughing, hematemesis, palpitations, radiating jaw, neck, or arm pain, epistaxis. February 07, 2017: This patient presents with chest discomfort. It is fairly typical for GI pain and I do not think any further cardiac evaluation is indicated. From my standpoint he can be discharged to follow-up with me as scheduled. He feels much better this morning. He may need some increase in his proton pump inhibitors but I think overall from a cardiac standpoint stable. IMPRESSION/PLAN: 1. ATYPICAL CHEST PAIN: Suspicious for GI etiology. We will continue to cycle cardiac biomarkers and EKGs and follow trend. His pain lasts 2-3 seconds at a time and has been recurrent despite the use of nitroglycerin. He may need follow-up with GI. Will further discuss with Dr. Preciado and await additional recommendations. 2. CORONARY ARTERY DISEASE: Continue aspirin, Plavix, statin. Beta-tez on hold due to sinus bradycardia. 3. HYPERTENSION: Currently well controlled on current therapy. We will continue to monitor and adjust accordingly. 4. NIDDM: He has been started on Accu-Cheks with sliding scale insulin. 5. OBSTRUCTIVE SLEEP APNEA: Continue CPAP nightly. 6. PRIOR CVA: In 2012 2014. No significant residual deficit noted. 7. OBESITY: Encouraged lifestyle modifications with diet and exercise. 8. HISTORY OF ESOPHAGEAL ULCER: Continue PPI. 9. HISTORY OF RENAL INSUFFICIENCY: Follow BMP. Will avoid nephrotoxic agents. Exam (Progress Note) - Constitutional Vitals: Period Temp Pulse Resp BP Sys/[place] Pulse Ox Last 24 Hr 96.9 F-98.4 F 50-57 18-22 125-171/60-94 93-99 Exam: General:no acute distress. alert and oriented, mood and affect are normal HEENT: no new lesions, sclerae are clear, mouth and pharynx benign Neck: supple, trachea midline, no JVD noted Lungs: no rales ronchi or wheeze is noted. pt comfortable without accesory muscle use to assist with breathing CV: RRR no murmur rub or gallop is noted. Abd: soft and nontender, BSNA, no masses. Ext: no cyanosis, clubbing or edema Neuro: grossly intact without focal neurologic deficit. Result/EKG - Labs CBC & BMP: 02/07/17 03:43 02/07/17 03:43 Labs: Laboratory Results - last 24 hr 02/06/17 02/06/17 02/06/17 10:16 10:16 10:16 WBC 7.9 RBC 5.56 H Hgb 14.7 Hct 45.2 MCV 81.3 L MCH 26 L MCHC 32.5 RDW 14.7 Plt Count 237 MPV 10.9 Neut % (Auto) 78.7 H Lymph % (Auto) 12.8 L [place] % (Auto) 5.6 Eos % (Auto) 1.8 Baso % (Auto) 0.6 Neut # (Auto) 6.2 Lymph # (Auto) 1.0 L [place] # (Auto) 0.4 Eos # (Auto) 0.1 Baso # (Auto) 0.1 Immature Gran % 0.5 Nucleated RBC % 0.0 Immature Gran # 0.04 Nucleated RBCs # 0.00 Immature Plt Fraction 0.0 INR 1.0 PT Patient/Control Mix 10.4 Circ Anticoag PTT 28.0 Sodium 141 Potassium 4.3 Chloride 106 Carbon Dioxide 28 Anion Gap 11.3 BUN 20 H Creatinine 1.60 H GFR Calculation 62 BUN/Creatinine Ratio 12.00 Glucose 193 H POC Glucose Hemoglobin A1c Calculated Osmolality 288.3 Calcium 8.7 Magnesium Total Bilirubin 0.70 AST 25 ALT 20 Alkaline Phosphatase 147 H Troponin I Total Protein 6.4 Albumin 3.2 L Globulin 3.2 Albumin/Globulin Ratio 1.0 L Triglycerides Cholesterol LDL Cholesterol VLDL Cholesterol HDL Cholesterol Heart Disease Risk Ratio 02/06/17 02/06/1717 10:16 13:24 16:52 WBC RBC Hgb Hct MCV MCH MCHC RDW Plt Count MPV Neut % (Auto) Lymph % (Auto) [place] % (Auto) Eos % (Auto) Baso % (Auto) Neut # (Auto) Lymph # (Auto) [place] # (Auto) Eos # (Auto) Baso # (Auto) Immature Gran % Nucleated RBC % Immature Gran # Nucleated RBCs # Immature Plt Fraction INR PT Patient/Control Mix Circ Anticoag PTT Sodium Potassium Chloride Carbon Dioxide Anion Gap BUN Creatinine GFR Calculation BUN/Creatinine Ratio Glucose POC Glucose Hemoglobin A1c Calculated Osmolality Calcium Magnesium Total Bilirubin AST ALT Alkaline Phosphatase Troponin I < 0.015 < 0.015 < 0.015 Total Protein Albumin Globulin Albumin/Globulin Ratio Triglycerides Cholesterol LDL Cholesterol VLDL Cholesterol HDL Cholesterol Heart Disease Risk Ratio 02/06/17 02/06/17 02/07/17 19:28 21:13 03:43 WBC RBC Hgb Hct MCV MCH MCHC RDW Plt Count MPV Neut % (Auto) Lymph % (Auto) [place] % (Auto) Eos % (Auto) Baso % (Auto) Neut # (Auto) Lymph # (Auto) [place] # (Auto) Eos # (Auto) Baso # (Auto) Immature Gran % Nucleated RBC % Immature Gran # Nucleated RBCs # Immature Plt Fraction INR PT Patient/Control Mix Circ Anticoag PTT Sodium Potassium Chloride Carbon Dioxide Anion Gap BUN Creatinine GFR Calculation BUN/Creatinine Ratio Glucose POC Glucose 160 H Hemoglobin A1c 8.3 H Calculated Osmolality Calcium Magnesium Total Bilirubin AST ALT Alkaline Phosphatase Troponin I < 0.015 Total Protein Albumin Globulin Albumin/Globulin Ratio Triglycerides Cholesterol LDL Cholesterol VLDL Cholesterol HDL Cholesterol Heart Disease Risk Ratio 02/07/17 02/07/17 02/07/17 03:43 03:43 07:42 WBC 7.6 RBC 5.44 Hgb 14.5 Hct 43.9 MCV 80.7 L MCH 27 MCHC 33.0 RDW 15.0 Plt Count 239 MPV 11.6 Neut % (Auto) 72.8 Lymph % (Auto) 16.8 L [place] % (Auto) 7.4 Eos % (Auto) 2.1 Baso % (Auto) 0.5 Neut # (Auto) 5.5 Lymph # (Auto) 1.3 L [place] # (Auto) 0.6 Eos # (Auto) 0.2 Baso # (Auto) 0.0 Immature Gran % 0.4 Nucleated RBC % 0.0 Immature Gran # 0.03 Nucleated RBCs # 0.00 Immature Plt Fraction 0.0 INR PT Patient/Control Mix Circ Anticoag PTT Sodium 142 Potassium 3.3 L Chloride 105 Carbon Dioxide 32 Anion Gap 8.3 BUN 22 H Creatinine 1.40 H GFR Calculation 72 BUN/Creatinine Ratio 15.00 Glucose 65 L POC Glucose 92 Hemoglobin A1c Calculated Osmolality 283.1 Calcium 9.0 Magnesium 2.5 H Total Bilirubin AST ALT Alkaline Phosphatase Troponin I Total Protein Albumin Globulin Albumin/Globulin Ratio Triglycerides 183 H Cholesterol 100 LDL Cholesterol 52.0 VLDL Cholesterol 36.6 HDL Cholesterol 31 L Heart Disease Risk Ratio 3.23
[2017-02-07] MEDS ORDERED: POTASSIUM CHLORIDE 20 MEQ TABLET PO ONE (10:33)
--- NOTE | 2017-02-07 10:38 | Discharge Summary ---
Hospital Course - Hospital Course Hospital Course: 71-year-old morbidly obese male with history of obstructive sleep apnea, insulin -dependent diabetes, coronary disease and hypertension presents with sharp chest pain that comes off and on for less than a minute affecting his left side of his chest. Serial cardiac enzymes are negative but EKG had some minor changes. Cardiology Dr. Preciado was consulted and feels that it is gastrointestinal and wants patient to stay on his omeprazole. Patient had a recent heart cath and October and already is had stents. He is already on aspirin and Plavix. He noted his heart rate tends to be very slow and I decreased his Coreg to 3.125. His blood pressure was not elevated despite leaving him off the Diovan in the Coreg overnight. I will restart the Diovan/hctz but his renal function needs to be monitored closely. Patient will need to follow-up with Dr. Morales in one week and Dr. Preciado in 2 weeks. - Time spent with patient Time with patient DS: Less than 30 minutes (25 min) Diagnosis - Discharge Diagnosis (1) Chest pain Status: Acute (2) Essential hypertension Status: Chronic (3) Diabetes mellitus Status: Chronic (4) Obstructive sleep apnea Status: Chronic (5) Renal insufficiency Status: Chronic Discharge Plan - Discharge Data Disposition: Disch To Home/Self Care Condition at Discharge: Stable Discharge Diet: diabetic diet, heart healthy Activity: resume usual activities as tolerated, no lifting - Discharge Medications New Carvedilol [Coreg] 3.125 mg PO BID #60 tablet Continue Valsartan/Hydrochlorothiazide [Valsartan-Hctz 320-25 mg Tab] 1 each PO QAM Nitroglycerin [Nitroglycerin SL Tab] 0.4 mg SL Q5M PRN PRN Reason: Chest Pain Insulin Lispro Prot/Lisp 75/25 [HumaLOG Mix 75/25] 25 unit SUBCUT QPM Glimepiride 4 mg PO QAM Gabapentin Cap/Tab [Neurontin Cap/Tab] 600 mg PO BID Clopidogrel [Plavix] 75 mg PO QAM Omeprazole 40 mg PO BID #60 tablet hydrALAZINE TAB [Apresoline Tab] 100 mg PO TID amLODIPine [Norvasc] 10 mg PO QAM Insulin Lispro Prot/Lisp 75/25 [HumaLOG Mix 75/25] 75 unit SUBCUT QAM Atorvastatin [Lipitor] 80 mg PO BEDTIME Potassium Chloride 20 meq PO BID #60 tablet Aspirin EC Tab 81 mg PO QAM Discontinued Carvedilol 12.5 mg PO BID - Follow Up or Referral Follow Up: Ruddy Morales MD [Primary Care Provider] - 1 Week (b/p check ) Woody Preciado MD [Physician] - 2 Weeks - Forms/Instructions Exam - Constitutional Vitals: Period Temp Pulse Resp BP Sys/[place] Pulse Ox Last 24 Hr 97.1 F-98.4 F 50-57 18-22 125-171/60-86 93-99 - Respiratory Respiratory exam: Present: clear to auscultation bilaterally. Absent: rhonchi, wheezes - Cardiovascular Cardiovascular exam: Present: bradycardia - GI/Abdominal GI/Abdominal exam: Present: normal bowel sounds, soft. Absent: tenderness Discharge Results Labs on day of discharge: Labs from last 24 hours 02/07/17 02/07/17 02/07/17 07:42 03:43 03:43 WBC 7.6 RBC 5.44 Hgb 14.5 Hct 43.9 MCV 80.7 L MCH 27 MCHC 33.0 RDW 15.0 Plt Count 239 MPV 11.6 Neut % (Auto) 72.8 Lymph % (Auto) 16.8 L Dare % (Auto) 7.4 Eos % (Auto) 2.1 Baso % (Auto) 0.5 Neut # (Auto) 5.5 Lymph # (Auto) 1.3 L Dare # (Auto) 0.6 Eos # (Auto) 0.2 Baso # (Auto) 0.0 Immature Gran % 0.4 Nucleated RBC % 0.0 Immature Gran # 0.03 Nucleated RBCs # 0.00 Immature Plt Fraction 0.0 INR PT Patient/Control Mix Circ Anticoag PTT Sodium 142 Potassium 3.3 L Chloride 105 Carbon Dioxide 32 Anion Gap 8.3 BUN 22 H Creatinine 1.40 H GFR Calculation 72 BUN/Creatinine Ratio 15.00 Glucose 65 L POC Glucose 92 Hemoglobin A1c Calculated Osmolality 283.1 Calcium 9.0 Magnesium 2.5 H Total Bilirubin AST ALT Alkaline Phosphatase Troponin I Total Protein Albumin Globulin Albumin/Globulin Ratio Triglycerides 183 H Cholesterol 100 LDL Cholesterol 52.0 VLDL Cholesterol 36.6 HDL Cholesterol 31 L Heart Disease Risk Ratio 3.23 02/07/17 02/06/17 02/06/17 03:43 21:13 19:28 WBC RBC Hgb Hct MCV MCH MCHC RDW Plt Count MPV Neut % (Auto) Lymph % (Auto) Dare % (Auto) Eos % (Auto) Baso % (Auto) Neut # (Auto) Lymph # (Auto) Dare # (Auto) Eos # (Auto) Baso # (Auto) Immature Gran % Nucleated RBC % Immature Gran # Nucleated RBCs # Immature Plt Fraction INR PT Patient/Control Mix Circ Anticoag PTT Sodium Potassium Chloride Carbon Dioxide Anion Gap BUN Creatinine GFR Calculation BUN/Creatinine Ratio Glucose POC Glucose 160 H Hemoglobin A1c 8.3 H Calculated Osmolality Calcium Magnesium Total Bilirubin AST ALT Alkaline Phosphatase Troponin I < 0.015 Total Protein Albumin Globulin Albumin/Globulin Ratio Triglycerides Cholesterol LDL Cholesterol VLDL Cholesterol HDL Cholesterol Heart Disease Risk Ratio 02/06/17 02/06/17 02/06/17 16:52 13:24 10:16 WBC RBC Hgb Hct MCV MCH MCHC RDW Plt Count MPV Neut % (Auto) Lymph % (Auto) Dare % (Auto) Eos % (Auto) Baso % (Auto) Neut # (Auto) Lymph # (Auto) Dare # (Auto) Eos # (Auto) Baso # (Auto) Immature Gran % Nucleated RBC % Immature Gran # Nucleated RBCs # Immature Plt Fraction INR PT Patient/Control Mix Circ Anticoag PTT Sodium Potassium Chloride Carbon Dioxide Anion Gap BUN Creatinine GFR Calculation BUN/Creatinine Ratio Glucose POC Glucose Hemoglobin A1c Calculated Osmolality Calcium Magnesium Total Bilirubin AST ALT Alkaline Phosphatase Troponin I < 0.015 < 0.015 < 0.015 Total Protein Albumin Globulin Albumin/Globulin Ratio Triglycerides Cholesterol LDL Cholesterol VLDL Cholesterol HDL Cholesterol Heart Disease Risk Ratio 02/06/17 02/06/17 02/06/17 10:16 10:16 10:16 WBC 7.9 RBC 5.56 H Hgb 14.7 Hct 45.2 MCV 81.3 L MCH 26 L MCHC 32.5 RDW 14.7 Plt Count 237 MPV 10.9 Neut % (Auto) 78.7 H Lymph % (Auto) 12.8 L Dare % (Auto) 5.6 Eos % (Auto) 1.8 Baso % (Auto) 0.6 Neut # (Auto) 6.2 Lymph # (Auto) 1.0 L Dare # (Auto) 0.4 Eos # (Auto) 0.1 Baso # (Auto) 0.1 Immature Gran % 0.5 Nucleated RBC % 0.0 Immature Gran # 0.04 Nucleated RBCs # 0.00 Immature Plt Fraction 0.0 INR 1.0 PT Patient/Control Mix 10.4 Circ Anticoag PTT 28.0 Sodium 141 Potassium 4.3 Chloride 106 Carbon Dioxide 28 Anion Gap 11.3 BUN 20 H Creatinine 1.60 H GFR Calculation 62 BUN/Creatinine Ratio 12.00 Glucose 193 H POC Glucose Hemoglobin A1c Calculated Osmolality 288.3 Calcium 8.7 Magnesium Total Bilirubin 0.70 AST 25 ALT 20 Alkaline Phosphatase 147 H Troponin I Total Protein 6.4 Albumin 3.2 L Globulin 3.2 Albumin/Globulin Ratio 1.0 L Triglycerides Cholesterol LDL Cholesterol VLDL Cholesterol HDL Cholesterol Heart Disease Risk Ratio DS: Provider Date of admission: 02/06/17 12:02 Primary care physician: Ruddy Morales MD Attending physician on admission: Sharron May MD Consults: 02/06/17 12:13 Consult to Cardiac Rehabilitation [CONS] Routine Reason for Cardiac Rehabilitation: Risk Factor Modification Other Consult Comment: Evaluate and recommend 02/06/17 12:18 Consult to Physician [CONS] Routine Comment: patinet of Dr Preciado Consulting Provider: Yaya Negron Consult to Specialist Group: Cardiology Consult Notification Comment: Recent left heart cath with stent placement October 2016 intermittent chest pain for few days - left side and sharp in nature 02/06/17 14:23 Consult to Physician [CONS] Routine Comment: chest pain Consulting Provider: Sharron May Discharging clinician: Sharron May MD
[2017-02-07] MEDS: PANTOPRAZOLE 40 MG TABLET PO SCH (10:44)
[2017-02-07] MEDS ORDERED: GABAPENTIN 600 MG TABLET PO SCH (11:00)
[2017-02-07 13:05] VITALS: BP 164/79
== END 2017-02-07 12:45 | disposition home or self-care (01) ==
LOC: N.EDINP 09:41 → N.ED 09:41 → N.2E 12:52
PROVIDERS: ADMIT Internal Medicine; ATTEND Internal Medicine

== ENCOUNTER 2021-02-08 17:41 | Inpatient (IN) ==
[2021-02-08] MEDS ORDERED: LABETALOL 20 MG/4 ML SYRINGE IV STA (18:35)
[2021-02-08] MEDS ORDERED: ONDANSETRON 4 MG/2 ML VIAL IV ONE (18:35)
[2021-02-08 19:18] LABS: Basophils % 0.3 % (0.0-0.8); Hematocrit 39.5 VOL% (42.0-52.0); Hemoglobin 12.7 GM/DL (14.0-18.0); Immature Granulocytes % 0.6 %; Immature Granulocytes Absolute 0.07 #; Lymphocytes # 1.1 10*3/uL (1.4-4.0); Lymphocytes % 9.7 % (21.2-54.2); Mean Corpuscular HGB Conc 32.2 GM/DL (32-36); Mean Corpuscular Volume 85.9 FL (87-102); Mean Platelet Volume 10.9 FL (9.6-12.0); Monocytes % 5.9 % (1.7-12.7); Neutrophils % 83.5 % (38.7-73.9); Platelet Count 327 T/CUMM (130-400); Red Cell Distribution Width 15.3 % (9.3-17.3); White Blood Count 10.9 T/CUMM (4-12)
[2021-02-08 19:51] LABS: Albumin 3.1 G/DL (3.4-5.0); Bilirubin,Total 1.3 MG/DL (0.20-1.00); Calcium 8.4 MG/DL (8.5-10.1); Total Protein 7.3 G/DL (6.4-8.2)
[2021-02-08] MEDS ORDERED: SODIUM CHLORIDE 0.9% 1,000 ML IV STA ×2 (20:00→20:25)
[2021-02-08] MEDS ORDERED: INSULIN REGULAR 100 UNIT/ML IV STA (20:14)
[2021-02-08] MEDS ORDERED: hydrALAZINE 20 MG/1 ML VIAL IV STA (20:26)
[2021-02-08 21:55] LABS: Bacteria,Urine Occasional /HPF (Few); Bilirubin,Urine Negative (Negative); Blood, Urine Negative (Negative); Glucose,Urine (UA) >=500 mg/dL (Negative); Granular Casts,Urine 1 /LPF (0-1); Hyaline Casts,Urine 4 /LPF (0-3); Ketones,Urine 20 mg/dL (Negative); Mucus,Urine Occasional /LPF (Occasional); Nitrite,Urine Negative (Negative); Protein,Urine >=500 MG/DL; RBC,Urine 1 /HPF (0-4); Squamous Epithelial Cell,Urine Occasional /HPF (0-10); Urine Appearance CLEAR (Clear); Urine Color Yellow (Yellow); Urine Urobilinogen < 2.0 EU/DL (0.2-1.0)
[2021-02-08 22:10] LABS: ABG Base Excess -1.6 MMOL/L (-2.5-2.5); ABG HCO3 22.4 MMOL/L (20-26); ABG Oxygen Saturation 92.8 % (95-100); ABG PCO2 35.6 MM HG (35-48); ABG PH 7.417 (7.35-7.45); ABG PO2 66.7 MM HG (80-95); ABG TCO2 23.5 MMOL/L (23-27)
[2021-02-08] MEDS ORDERED: FUROSEMIDE 40 MG/4 ML VIAL IV STA (22:29)
[2021-02-08] MEDS ORDERED: ENOXAPARIN 100 MG/ML SYRINGE SUBCUT ONE (22:30)
[2021-02-08] MEDS ORDERED: DEXTROSE 50% 25 GM/50 ML VIAL IV PRN ×2 (22:31)
[2021-02-08] MEDS ORDERED: GLUCAGON 1 MG VIAL IM PRN ×2 (22:31)
[2021-02-08] MEDS ORDERED: hydrALAZINE 20 MG/1 ML VIAL IV PRN (22:31)
[2021-02-08] MEDS ORDERED: ONDANSETRON 4 MG/2 ML VIAL IV PRN (22:31)
[2021-02-08] MEDS ORDERED: diphenhydrAMINE CAP 25 MG CAPSULE PO PRN (22:31)
[2021-02-08] MEDS ORDERED: BISACODYL 5 MG TABLET PO PRN (22:31)
[2021-02-08] MEDS ORDERED: NICOTINE 21 MG/24 HR PATCH TRANSDERM PRN (22:31)
[2021-02-08] MEDS ORDERED: ZALEPLON 5 MG CAPSULE PO PRN (22:31)
[2021-02-08] MEDS ORDERED: guaiFENesin/DM ER 600-30 MG TABLET PO PRN (22:31)
[2021-02-08] MEDS ORDERED: ACETAMINOPHEN 325 MG TABLET PO PRN (22:31)
[2021-02-08] MEDS ORDERED: amLODIPine 5 MG TABLET PO STA (22:36)
[2021-02-09 05:49] LABS: Basophils % 0.2 % (0.0-0.8); Eosinophils % 0.1 % (0.00-10.9); Hematocrit 33.2 VOL% (42.0-52.0); Hemoglobin 10.3 GM/DL (14.0-18.0); Immature Granulocytes % 0.6 %; Immature Granulocytes Absolute 0.06 #; Lymphocytes # 0.7 10*3/uL (1.4-4.0); Lymphocytes % 6.3 % (21.2-54.2); Mean Corpuscular Volume 87.8 FL (87-102); Mean Platelet Volume 11.4 FL (9.6-12.0); Monocytes % 6.7 % (1.7-12.7); Neutrophils % 86.1 % (38.7-73.9); Platelet Count 270 T/CUMM (130-400); Red Blood Count 3.78 MC/CUMM (3.8-5.5); Red Cell Distribution Width 15.4 % (9.3-17.3); White Blood Count 10.8 T/CUMM (4-12)
[2021-02-09 06:10] LABS: Calcium 8.1 MG/DL (8.5-10.1); Osmolality,Calculated 300.6 MOS/KG (273-304); Potassium 3.7 MMOL/L (3.5-5.1)
[2021-02-09] MEDS: INSULIN REGULAR 100 UNIT/ML SUBCUT SCH ×6 (07:18→21:52)
[2021-02-09] MEDS: INSULIN GLARGINE 100 UNIT/ML SUBCUT SCH ×2 (07:18→21:52)
[2021-02-09] MEDS: ASPIRIN EC 81 MG TABLET PO SCH (09:05)
[2021-02-09] MEDS: EZETIMIBE 10 MG TABLET PO SCH (09:05)
[2021-02-09] MEDS: CLOPIDOGREL 75 MG TABLET PO SCH (09:05)
[2021-02-09] MEDS: carvediloL 12.5 MG TABLET PO SCH ×2 (09:05→16:57)
[2021-02-09] MEDS: DOXAZOSIN 4 MG TABLET PO SCH (09:05)
[2021-02-09] MEDS: amLODIPine 10 MG TABLET PO SCH ×2 (09:05→09:06)
[2021-02-09] MEDS: PANTOPRAZOLE 40 MG TABLET PO SCH (09:05)
[2021-02-09] MEDS ORDERED: NITROGLYCERIN SL 0.4 MG TABLET SL PRN (14:33)
[2021-02-09] MEDS: GABAPENTIN 600 MG TABLET PO SCH ×2 (16:57→21:51)
[2021-02-09] MEDS ORDERED: ATORVASTATIN 80 MG TABLET PO SCH (21:00)
[2021-02-10] MEDS: INSULIN REGULAR 100 UNIT/ML SUBCUT SCH ×2 (06:08→10:02)
[2021-02-10 08:30] VITALS: BP 144/83
[2021-02-10] MEDS ORDERED: GLIMEPIRIDE 2 MG TABLET PO SCH (09:00)
[2021-02-10] MEDS ORDERED: CHOLECALCIFEROL 1,000 UNIT TABLET PO SCH (09:00)
[2021-02-10] MEDS ORDERED: VALSARTAN 160 MG TABLET PO SCH (09:00)
[2021-02-10] MEDS: GABAPENTIN 600 MG TABLET PO SCH (10:00)
[2021-02-10] MEDS: amLODIPine 10 MG TABLET PO SCH ×2 (10:01)
[2021-02-10] MEDS: CLOPIDOGREL 75 MG TABLET PO SCH (10:01)
[2021-02-10] MEDS: PANTOPRAZOLE 40 MG TABLET PO SCH (10:01)
[2021-02-10] MEDS: EZETIMIBE 10 MG TABLET PO SCH (10:01)
[2021-02-10] MEDS: DOXAZOSIN 4 MG TABLET PO SCH (10:01)
[2021-02-10] MEDS: ASPIRIN EC 81 MG TABLET PO SCH (10:02)
[2021-02-10] MEDS: carvediloL 12.5 MG TABLET PO SCH (10:02)
== END 2021-02-10 11:35 | disposition home or self-care (01) | DRG 309 ==
LOC: N.ED 17:41 → N.EDINP 22:32 → N.TELES 23:10
PROVIDERS: ADMIT Internal Medicine; ATTEND Internal Medicine

== ENCOUNTER 2021-06-26 12:03 | Inpatient (IN) ==
[2021-06-26 12:59] LABS: Amorphous Crystals,Urine Few /HPF (Few); Bacteria,Urine Occasional /HPF (Few); Bilirubin,Urine Negative (Negative); Blood, Urine Small mg/dL (Negative); Glucose,Urine (UA) >=500 mg/dL (Negative); Ketones,Urine Negative (Negative); Mucus,Urine Occasional /LPF (Occasional); Nitrite,Urine Negative (Negative); Protein,Urine >=500 MG/DL; RBC,Urine 2 /HPF (0-4); Squamous Epithelial Cell,Urine Occasional /HPF (0-10); Urine Appearance Slightly Hazy (Clear); Urine Color Yellow (Yellow); Urine Specific Gravity 1.018 (1.001-1.035); Urine Urobilinogen < 2.0 EU/DL (<2.0)
[2021-06-26 15:15] LABS: Albumin 2.1 G/DL (3.4-5.0); Bilirubin,Total 0.6 MG/DL (0.20-1.00); Calcium 7.6 MG/DL (8.5-10.1); Prealbumin 8.1 MG/DL (20-40); Total Protein 6.5 G/DL (6.4-8.2)
[2021-06-26] MEDS ORDERED: FUROSEMIDE 40 MG/4 ML VIAL IV STA (15:23)
[2021-06-26] MEDS ORDERED: POTASSIUM CHLORIDE 20 MEQ TABLET PO STA (15:27)
[2021-06-26] MEDS ORDERED: hydrALAZINE 20 MG/1 ML VIAL IV STA (16:12)
[2021-06-26 16:38] LABS: Basophils # 0.1 10*3/uL (0.0-0.2); Basophils % 0.6 % (0.0-0.8); Eosinophils # 0.2 10*3/uL (0.0-0.87); Eosinophils % 1.2 % (0.00-10.9); Hematocrit 37.7 VOL% (42.0-52.0); Hemoglobin 11.6 GM/DL (14.0-18.0); Immature Granulocytes % 0.7 %; Immature Granulocytes Absolute 0.09 #; Lymphocytes # 1.1 10*3/uL (1.4-4.0); Lymphocytes % 9.1 % (21.2-54.2); Mean Corpuscular HGB Conc 30.8 GM/DL (32-36); Mean Corpuscular Volume 88.5 FL (87-102); Monocytes % 5.9 % (1.7-12.7); Neutrophils % 82.5 % (38.7-73.9); Platelet Count 348 T/CUMM (130-400); Red Blood Count 4.26 MC/CUMM (3.8-5.5); Red Cell Distribution Width 15.5 % (9.3-17.3); White Blood Count 12.3 T/CUMM (4-12)
[2021-06-26] MEDS ORDERED: LEVOFLOXACIN INJ 750 MG/150 ML PREMIX IV STA (18:52)
[2021-06-26] MEDS ORDERED: ONDANSETRON 4 MG/2 ML VIAL IV PRN (18:59)
[2021-06-26] MEDS ORDERED: GLUCAGON 1 MG VIAL IM PRN (18:59)
[2021-06-26] MEDS ORDERED: ACETAMINOPHEN 325 MG TABLET PO PRN (18:59)
[2021-06-26] MEDS ORDERED: DEXTROSE 50% 25 GM/50 ML VIAL IV PRN (19:17)
[2021-06-26] MEDS ORDERED: NITROGLYCERIN SL 0.4 MG TABLET SL PRN (19:18)
[2021-06-26] MEDS ORDERED: DEXTROSE 10% 250 ML BAG IV PRN (19:23)
[2021-06-26] MEDS: HEPARIN 5,000 UNIT/1 ML VIAL SUBCUT SCH (20:29)
[2021-06-26] MEDS ORDERED: carvediloL 12.5 MG TABLET PO SCH (21:00)
[2021-06-26] MEDS ORDERED: carvediloL 12.5 MG TABLET PO ONE (21:09)
[2021-06-26] MEDS: INSULIN REGULAR 100 UNIT/ML SUBCUT SCH (21:19)
[2021-06-27] MEDS ORDERED: DOXAZOSIN 1 MG TABLET ONE (03:30)
[2021-06-27] MEDS: DOXAZOSIN 4 MG TABLET PO SCH ×3 (03:43→20:14)
[2021-06-27 04:29] LABS: Basophils % 0.5 % (0.0-0.8); Eosinophils # 0.1 10*3/uL (0.0-0.87); Eosinophils % 1.1 % (0.00-10.9); Hemoglobin 9.7 GM/DL (14.0-18.0); Immature Granulocytes % 0.6 %; Immature Granulocytes Absolute 0.05 #; Lymphocytes # 0.7 10*3/uL (1.4-4.0); Lymphocytes % 7.4 % (21.2-54.2); Mean Corpuscular HGB Conc 31.3 GM/DL (32-36); Mean Corpuscular Volume 87.1 FL (87-102); Mean Platelet Volume 11.6 FL (9.6-12.0); Monocytes % 7.2 % (1.7-12.7); Neutrophils % 83.2 % (38.7-73.9); Platelet Count 276 T/CUMM (130-400); Red Blood Count 3.56 MC/CUMM (3.8-5.5); Red Cell Distribution Width 15.2 % (9.3-17.3); White Blood Count 8.8 T/CUMM (4-12)
[2021-06-27 04:53] LABS: Calcium 7.2 MG/DL (8.5-10.1); Osmolality,Calculated 299.8 MOS/KG (273-304)
[2021-06-27] MEDS: ASPIRIN EC 81 MG TABLET PO SCH (09:40)
[2021-06-27] MEDS: CLOPIDOGREL 75 MG TABLET PO SCH (09:40)
[2021-06-27] MEDS: carvediloL 25 MG TABLET PO SCH ×2 (09:40→20:14)
[2021-06-27] MEDS: FUROSEMIDE 40 MG/4 ML VIAL IV SCH ×3 (09:40→18:20)
[2021-06-27] MEDS: INSULIN REGULAR 100 UNIT/ML SUBCUT SCH ×4 (14:54→20:15)
[2021-06-27] MEDS: HEPARIN 5,000 UNIT/1 ML VIAL SUBCUT SCH ×2 (14:55→20:15)
[2021-06-27] MEDS: GLIMEPIRIDE 2 MG TABLET PO SCH (15:16)
[2021-06-27] MEDS ORDERED: GLUCAGON 1 MG VIAL IM PRN (17:36)
[2021-06-27] MEDS ORDERED: DEXTROSE 10% 250 ML BAG IV PRN (17:45)
[2021-06-28 07:40] LABS: Basophils % 0.5 % (0.0-0.8); Eosinophils # 0.2 10*3/uL (0.0-0.87); Eosinophils % 2.1 % (0.00-10.9); Hemoglobin 9.8 GM/DL (14.0-18.0); Immature Granulocytes % 0.5 %; Immature Granulocytes Absolute 0.04 #; Lymphocytes # 0.9 10*3/uL (1.4-4.0); Lymphocytes % 11.5 % (21.2-54.2); Mean Corpuscular HGB Conc 30.6 GM/DL (32-36); Mean Corpuscular Volume 88.6 FL (87-102); Mean Platelet Volume 11.7 FL (9.6-12.0); Monocytes % 8.2 % (1.7-12.7); Neutrophils % 77.2 % (38.7-73.9); Platelet Count 281 T/CUMM (130-400); Red Blood Count 3.61 MC/CUMM (3.8-5.5); Red Cell Distribution Width 15.3 % (9.3-17.3); White Blood Count 7.5 T/CUMM (4-12)
[2021-06-28 08:17] LABS: Calcium 7.3 MG/DL (8.5-10.1)
[2021-06-28 08:33] LABS: Uric Acid 9.2 MG/DL (3.5-7.2)
[2021-06-28 08:35] LABS: Potassium 2.5 MMOL/L (3.5-5.1)
[2021-06-28] MEDS ORDERED: LEVOFLOXACIN INJ 750 MG/150 ML PREMIX IV SCH (09:00)
[2021-06-28] MEDS: GLIMEPIRIDE 2 MG TABLET PO SCH (10:28)
[2021-06-28] MEDS: POTASSIUM CHLORIDE 20 MEQ TABLET PO PRN ×4 (10:28→16:23)
[2021-06-28] MEDS: ASPIRIN EC 81 MG TABLET PO SCH (10:28)
[2021-06-28] MEDS: FUROSEMIDE 40 MG/4 ML VIAL IV SCH (10:28)
[2021-06-28] MEDS: HEPARIN 5,000 UNIT/1 ML VIAL SUBCUT SCH ×2 (10:28→20:31)
[2021-06-28] MEDS: INSULIN REGULAR 100 UNIT/ML SUBCUT SCH ×4 (10:29→20:31)
[2021-06-28] MEDS: carvediloL 25 MG TABLET PO SCH ×2 (10:29→20:31)
[2021-06-28] MEDS: DOXAZOSIN 4 MG TABLET PO SCH ×2 (10:29→20:30)
[2021-06-28] MEDS: CLOPIDOGREL 75 MG TABLET PO SCH (10:29)
[2021-06-28] MEDS: LEVOFLOXACIN INJ 500 MG/100 ML PREMIX IV SCH (10:29)
[2021-06-28] MEDS: TRIAMCINOLONE 0.025% CREAM 15 GM TUBE TOP SCH (20:31)
[2021-06-29 06:56] LABS: Basophils % 0.4 % (0.0-0.8); Eosinophils # 0.1 10*3/uL (0.0-0.87); Eosinophils % 1.3 % (0.00-10.9); Hemoglobin 9.7 GM/DL (14.0-18.0); Immature Granulocytes % 0.7 %; Immature Granulocytes Absolute 0.05 #; Lymphocytes # 0.9 10*3/uL (1.4-4.0); Lymphocytes % 13.2 % (21.2-54.2); Mean Corpuscular HGB Conc 31.3 GM/DL (32-36); Mean Corpuscular Volume 88.8 FL (87-102); Mean Platelet Volume 11.7 FL (9.6-12.0); Monocytes % 7.8 % (1.7-12.7); Neutrophils % 76.6 % (38.7-73.9); Platelet Count 288 T/CUMM (130-400); Red Blood Count 3.49 MC/CUMM (3.8-5.5); Red Cell Distribution Width 15.7 % (9.3-17.3); White Blood Count 6.7 T/CUMM (4-12)
[2021-06-29] MEDS: INSULIN REGULAR 100 UNIT/ML SUBCUT SCH ×2 (08:33→11:14)
[2021-06-29 08:58] LABS: Calcium 7.1 MG/DL (8.5-10.1); Potassium 2.8 MMOL/L (3.5-5.1)
[2021-06-29] MEDS ORDERED: ceFAZolin 2,000 MG/50 ML DUPLEX IV ONE (09:39)
[2021-06-29] MEDS: HEPARIN 5,000 UNIT/1 ML VIAL SUBCUT SCH ×2 (10:02→21:03)
[2021-06-29] MEDS: POTASSIUM CHLORIDE 20 MEQ TABLET PO PRN ×4 (10:03→16:06)
[2021-06-29] MEDS: carvediloL 25 MG TABLET PO SCH ×2 (10:03→21:03)
[2021-06-29] MEDS: DOXAZOSIN 4 MG TABLET PO SCH ×2 (10:03→21:03)
[2021-06-29] MEDS: ASPIRIN EC 81 MG TABLET PO SCH (10:04)
[2021-06-29] MEDS: FUROSEMIDE 80 MG TABLET PO SCH (10:04)
[2021-06-29] MEDS: CLOPIDOGREL 75 MG TABLET PO SCH (10:04)
[2021-06-29] MEDS: TRIAMCINOLONE 0.025% CREAM 15 GM TUBE TOP SCH (10:04)
[2021-06-29] MEDS: NYSTATIN POWDER 15 GM BOTTLE TOP SCH ×2 (14:13→21:03)
[2021-06-30 05:50] LABS: Basophils % 0.6 % (0.0-0.8); Eosinophils # 0.1 10*3/uL (0.0-0.87); Eosinophils % 1.7 % (0.00-10.9); Hematocrit 31.7 VOL% (42.0-52.0); Hemoglobin 9.4 GM/DL (14.0-18.0); Immature Granulocytes % 0.4 %; Immature Granulocytes Absolute 0.03 #; Lymphocytes # 0.8 10*3/uL (1.4-4.0); Lymphocytes % 11.3 % (21.2-54.2); Mean Corpuscular HGB Conc 29.7 GM/DL (32-36); Mean Corpuscular Volume 90.6 FL (87-102); Mean Platelet Volume 11.1 FL (9.6-12.0); Monocytes % 8.6 % (1.7-12.7); Neutrophils % 77.4 % (38.7-73.9); Platelet Count 286 T/CUMM (130-400); Red Cell Distribution Width 15.8 % (9.3-17.3); White Blood Count 7.2 T/CUMM (4-12)
[2021-06-30 06:20] LABS: Calcium 6.9 MG/DL (8.5-10.1); Osmolality,Calculated 296.8 MOS/KG (273-304); Potassium 3.1 MMOL/L (3.5-5.1)
[2021-06-30] MEDS: POTASSIUM CHLORIDE 20 MEQ TABLET PO PRN ×4 (06:26→13:15)
[2021-06-30] MEDS: LEVOFLOXACIN INJ 500 MG/100 ML PREMIX IV SCH (08:24)
[2021-06-30] MEDS: ASPIRIN EC 81 MG TABLET PO SCH (08:25)
[2021-06-30] MEDS: FUROSEMIDE 80 MG TABLET PO SCH (08:25)
[2021-06-30] MEDS: carvediloL 25 MG TABLET PO SCH (08:25)
[2021-06-30] MEDS: DOXAZOSIN 4 MG TABLET PO SCH (08:25)
[2021-06-30] MEDS: HEPARIN 5,000 UNIT/1 ML VIAL SUBCUT SCH (08:25)
[2021-06-30] MEDS: NYSTATIN POWDER 15 GM BOTTLE TOP SCH (08:27)
[2021-06-30] MEDS ORDERED: PHENOL 1.4% THROAT SPRAY 177 ML BOTTLE PO PRN (11:59)
[2021-06-30 12:26] VITALS: BP 146/88
== END 2021-06-30 14:22 | disposition home health service (06) | DRG 682 ==
LOC: N.ED 12:03 → N.EDINP 06-27 02:00 → N.TELES 06-27 15:51
PROVIDERS: ADMIT Internal Medicine Geriatric Medicine; ATTEND Internal Medicine Geriatric Medicine

== ENCOUNTER 2021-07-08 09:09 | Inpatient (IN) ==
[2021-07-08] MEDS ORDERED: SODIUM CHLORIDE 0.9% 250 ML IV SCH (09:30)
[2021-07-08 09:52] LABS: Hematocrit 33.5 VOL% (42.0-52.0)
[2021-07-08] MEDS ORDERED: FAMOTIDINE 20 MG TABLET PO ONE (10:32)
[2021-07-08] MEDS ORDERED: DIAZEPAM 5 MG TABLET PO ONE (10:32)
[2021-07-08] MEDS ORDERED: BUPIVACAINE MPF 0.25% 30 ML VIAL ONE (11:09)
[2021-07-08] MEDS ORDERED: LIDOCAINE 1%/EPI INJ 20 ML VIAL ONE (11:09)
[2021-07-08] MEDS ORDERED: TISSUE ADHESIVE 1 EACH APPLICATOR TOP ONE (11:10)
[2021-07-08] MEDS ORDERED: SEVOFLURANE 1 UNIT/15 MINUTE INH ONE ×3 (11:32→12:51)
[2021-07-08] MEDS ORDERED: ONDANSETRON 4 MG/2 ML VIAL ONE (11:32)
[2021-07-08] MEDS ORDERED: DEXAMETHASONE 4 MG/1 ML VIAL ONE (11:32)
[2021-07-08] MEDS ORDERED: LIDOCAINE 2% 5 ML VIAL ONE (11:32)
[2021-07-08] MEDS ORDERED: ROCURONIUM 50 MG/5 ML VIAL IV ONE (11:32)
[2021-07-08] MEDS ORDERED: propofoL 200 MG/20 ML VIAL IV ONE (11:32)
[2021-07-08] MEDS ORDERED: fentaNYL 100 MCG/2 ML VIAL ONE (11:33)
[2021-07-08] MEDS ORDERED: ACETAMINOPHEN INJ 1,000 MG/100 ML VIAL IV ONE (11:34)
[2021-07-08] MEDS ORDERED: SUCCINYLCHOLINE 200 MG/10 ML VIAL ONE (12:13)
[2021-07-08] MEDS ORDERED: GLYCOPYRROLATE 0.4 MG/2 ML VIAL ONE ×3 (12:40→12:51)
[2021-07-08] MEDS ORDERED: NEOSTIGMINE 10 MG/10 ML VIAL ONE (12:51)
[2021-07-08] MEDS ORDERED: NALOXONE 0.4 MG/ML VIAL ONE (13:08)
[2021-07-08] MEDS ORDERED: DEXTROSE 50% 25 GM/50 ML SYRINGE IV ONE (13:23)
[2021-07-08] MEDS ORDERED: GLUCAGON 1 MG VIAL IM PRN (14:33)
[2021-07-08] MEDS ORDERED: DEXTROSE 10% 250 ML BAG IV PRN (14:33)
[2021-07-08 14:45] LABS: ABG Base Excess -5.5 MMOL/L (-2.5-2.5); ABG HCO3 19.9 MMOL/L (20-26); ABG Oxygen Saturation 99.1 % (95-100); ABG PCO2 67.2 MM HG (35-48); ABG TCO2 22.8 MMOL/L (23-27)
[2021-07-08 14:49] LABS: ABG PH 7.165 (7.35-7.45)
[2021-07-08 16:40] LABS: Albumin 2.1 G/DL (3.4-5.0); Bilirubin,Total 0.5 MG/DL (0.20-1.00); Calcium 7.2 MG/DL (8.5-10.1); Osmolality,Calculated 298.4 MOS/KG (273-304); Total Protein 5.9 G/DL (6.4-8.2)
[2021-07-08] MEDS: INSULIN LISPRO 100 UNIT/ML SUBCUT SCH (16:57)
[2021-07-08 17:30] LABS: Thyroid Stimulating Hormone 4.87 uIU/ml (0.358-3.74)
[2021-07-08] MEDS ORDERED: ALUMINUM/MAGNES/SIMETH MAX STR 30 ML UDCUP PO PRN (18:24)
[2021-07-08] MEDS ORDERED: ONDANSETRON 4 MG/2 ML VIAL IV PRN (18:32)
[2021-07-08] MEDS ORDERED: ALBUTEROL 2.5 MG/3 ML NEB RESP TX PRN (18:32)
[2021-07-08] MEDS ORDERED: ACETAMINOPHEN 325 MG TABLET PO PRN (18:32)
[2021-07-08] MEDS: FAMOTIDINE 20 MG TABLET PO SCH (20:05)
[2021-07-09 04:24] LABS: ABG Base Excess -6.5 MMOL/L (-2.5-2.5); ABG HCO3 21.8 MMOL/L (20-26); ABG Oxygen Saturation 97.1 % (95-100); ABG PCO2 57.8 MM HG (35-48); ABG PO2 108.4 MM HG (80-95); ABG TCO2 23.6 MMOL/L (23-27)
[2021-07-09 04:27] LABS: ABG PH 7.195 (7.35-7.45)
[2021-07-09 06:06] LABS: Calcium 7.1 MG/DL (8.5-10.1); Osmolality,Calculated 301.5 MOS/KG (273-304)
[2021-07-09 06:08] LABS: Basophils % 0.3 % (0.0-0.8); Hemoglobin 11.6 GM/DL (14.0-18.0); Immature Granulocytes % 1.2 %; Immature Granulocytes Absolute 0.13 #; Lymphocytes # 0.3 10*3/uL (1.4-4.0); Lymphocytes % 3.1 % (21.2-54.2); Mean Corpuscular HGB Conc 28.9 GM/DL (32-36); Mean Corpuscular Volume 93.9 FL (87-102); Mean Platelet Volume 11.3 FL (9.6-12.0); Monocytes % 2.3 % (1.7-12.7); Neutrophils % 93.1 % (38.7-73.9); Platelet Count 230 T/CUMM (130-400); Red Blood Count 4.27 MC/CUMM (3.8-5.5); Red Cell Distribution Width 15.6 % (9.3-17.3); White Blood Count 10.6 T/CUMM (4-12)
[2021-07-09 06:10] LABS: Hematocrit 40.1 VOL% (42.0-52.0)
[2021-07-09 06:18] LABS: Lymphocytes 3 % (20-55); Segmented Neutrophils 92 % (50-85); Total Cells Counted 100
[2021-07-09 06:19] LABS: Hypochromia 1+; Microcytosis 1+; Ovalocytes Slight; Platelet Estimate Normal
[2021-07-09] MEDS ORDERED: SODIUM POLYSTYRENE SULFATE 15 GM/60 ML BOTTLE PO ONE (06:29)
[2021-07-09] MEDS: CHOLECALCIFEROL 5,000 UNIT TABLET PO SCH (08:23)
[2021-07-09] MEDS: SODIUM BICARBONATE 650 MG TABLET PO SCH ×3 (08:24→20:45)
[2021-07-09] MEDS: FAMOTIDINE 20 MG TABLET PO SCH ×2 (08:25→20:45)
[2021-07-09] MEDS: INSULIN NPH 100 UNIT/ML SUBCUT SCH ×2 (08:26→17:33)
[2021-07-09] MEDS: INSULIN LISPRO 100 UNIT/ML SUBCUT SCH ×2 (08:27→16:52)
[2021-07-09] MEDS: carvediloL 12.5 MG TABLET PO SCH ×2 (09:39→20:40)
[2021-07-09] MEDS: FUROSEMIDE 80 MG TABLET PO SCH (11:20)
[2021-07-09] MEDS: DESITIN 4OZ/NYSTATIN 15 GRAM MIXTURE PASTE TOP SCH ×2 (14:30→20:46)
[2021-07-09 20:27] LABS: ABG Base Excess -5.9 MMOL/L (-2.5-2.5); ABG HCO3 19.6 MMOL/L (20-26); ABG Oxygen Saturation 98.3 % (95-100); ABG PCO2 67.1 MM HG (35-48); ABG TCO2 22.6 MMOL/L (23-27)
[2021-07-10 00:34] LABS: ABG Base Excess -5.4 MMOL/L (-2.5-2.5); ABG Oxygen Saturation 95.6 % (95-100); ABG PCO2 60.4 MM HG (35-48); ABG PO2 92.6 MM HG (80-95); ABG TCO2 24.8 MMOL/L (23-27)
[2021-07-10 00:37] LABS: ABG PH 7.198 (7.35-7.45)
[2021-07-10 03:36] LABS: ABG Base Excess -5.1 MMOL/L (-2.5-2.5); ABG HCO3 23.5 MMOL/L (20-26); ABG Oxygen Saturation 97.7 % (95-100); ABG PCO2 62.9 MM HG (35-48); ABG PO2 118.9 MM HG (80-95); ABG TCO2 25.4 MMOL/L (23-27)
[2021-07-10 05:53] LABS: Calcium 7.3 MG/DL (8.5-10.1); Osmolality,Calculated 301.4 MOS/KG (273-304); Potassium 5.3 MMOL/L (3.5-5.1)
[2021-07-10 06:17] LABS: Basophils % 0.1 % (0.0-0.8); Eosinophils # 0.1 10*3/uL (0.0-0.87); Eosinophils % 0.6 % (0.00-10.9); Hematocrit 33.3 VOL% (42.0-52.0); Hemoglobin 9.8 GM/DL (14.0-18.0); Immature Granulocytes % 0.5 %; Immature Granulocytes Absolute 0.04 #; Lymphocytes # 0.6 10*3/uL (1.4-4.0); Lymphocytes % 6.8 % (21.2-54.2); Mean Corpuscular HGB Conc 29.4 GM/DL (32-36); Mean Corpuscular Volume 94.6 FL (87-102); Mean Platelet Volume 11.6 FL (9.6-12.0); Monocytes % 6.9 % (1.7-12.7); Neutrophils % 85.1 % (38.7-73.9); Platelet Count 223 T/CUMM (130-400); Red Blood Count 3.52 MC/CUMM (3.8-5.5); Red Cell Distribution Width 15.9 % (9.3-17.3); White Blood Count 8.6 T/CUMM (4-12)
[2021-07-10] MEDS: INSULIN NPH 100 UNIT/ML SUBCUT SCH ×2 (09:03→16:27)
[2021-07-10] MEDS: FUROSEMIDE 80 MG TABLET PO SCH (09:03)
[2021-07-10] MEDS: INSULIN LISPRO 100 UNIT/ML SUBCUT SCH ×2 (09:03→16:27)
[2021-07-10] MEDS: FAMOTIDINE 20 MG TABLET PO SCH ×2 (09:04→20:50)
[2021-07-10] MEDS: SODIUM BICARBONATE 650 MG TABLET PO SCH ×3 (09:04→20:50)
[2021-07-10] MEDS: DESITIN 4OZ/NYSTATIN 15 GRAM MIXTURE PASTE TOP SCH ×2 (09:04→21:40)
[2021-07-10] MEDS: CHOLECALCIFEROL 5,000 UNIT TABLET PO SCH (09:05)
[2021-07-10] MEDS: OLANZapine 10 MG VIAL IM PRN (11:55)
[2021-07-10] MEDS ORDERED: LORazepam 2 MG/1 ML VIAL IV ONE (13:14)
[2021-07-11] MEDS: OLANZapine 10 MG VIAL IM PRN (02:19)
[2021-07-11 04:15] LABS: ABG Base Excess -4.4 MMOL/L (-2.5-2.5); ABG Oxygen Saturation 98.1 % (95-100); ABG PCO2 61.7 MM HG (35-48); ABG PO2 130.4 MM HG (80-95); ABG TCO2 25.9 MMOL/L (23-27)
[2021-07-11 04:18] LABS: ABG PH 7.207 (7.35-7.45)
[2021-07-11] MEDS ORDERED: LORazepam 2 MG/1 ML VIAL IV ONE (06:29)
[2021-07-11 07:07] LABS: Calcium 6.8 MG/DL (8.5-10.1); Osmolality,Calculated 300.4 MOS/KG (273-304); Potassium 4.8 MMOL/L (3.5-5.1)
[2021-07-11 07:21] LABS: Basophils % 0.2 % (0.0-0.8); Eosinophils # 0.1 10*3/uL (0.0-0.87); Eosinophils % 1.3 % (0.00-10.9); Hemoglobin 9.8 GM/DL (14.0-18.0); Immature Granulocytes % 0.9 %; Immature Granulocytes Absolute 0.08 #; Lymphocytes # 0.6 10*3/uL (1.4-4.0); Lymphocytes % 6.7 % (21.2-54.2); Mean Corpuscular HGB Conc 29.3 GM/DL (32-36); Mean Corpuscular Volume 94.6 FL (87-102); Mean Platelet Volume 12.5 FL (9.6-12.0); Monocytes % 7.8 % (1.7-12.7); Neutrophils % 83.1 % (38.7-73.9); Platelet Count 140 T/CUMM (130-400); Red Blood Count 3.54 MC/CUMM (3.8-5.5); Red Cell Distribution Width 15.7 % (9.3-17.3); White Blood Count 8.6 T/CUMM (4-12)
[2021-07-11 07:23] LABS: Hematocrit 33.5 VOL% (42.0-52.0)
[2021-07-11] MEDS: INSULIN NPH 100 UNIT/ML SUBCUT SCH ×2 (07:40→17:34)
[2021-07-11] MEDS: INSULIN LISPRO 100 UNIT/ML SUBCUT SCH ×2 (07:40→17:34)
[2021-07-11 07:47] LABS: Hypochromia 1+; Microcytosis 1+; Platelet Estimate Adequate
[2021-07-11] MEDS ORDERED: OLANZapine 10 MG VIAL IM PRN (08:02)
[2021-07-11] MEDS ORDERED: LORazepam 2 MG/1 ML VIAL IV PRN (08:02)
[2021-07-11] MEDS: FAMOTIDINE 20 MG TABLET PO SCH ×2 (08:15→22:13)
[2021-07-11] MEDS: FUROSEMIDE 80 MG TABLET PO SCH (08:15)
[2021-07-11] MEDS: SODIUM BICARBONATE 650 MG TABLET PO SCH ×3 (08:16→22:14)
[2021-07-11] MEDS: DESITIN 4OZ/NYSTATIN 15 GRAM MIXTURE PASTE TOP SCH ×2 (08:16→22:14)
[2021-07-11] MEDS: CHOLECALCIFEROL 5,000 UNIT TABLET PO SCH (08:16)
[2021-07-11] MEDS ORDERED: QUEtiapine 25 MG TABLET PO ONE (17:57)
[2021-07-12 04:16] LABS: Basophils % 0.3 % (0.0-0.8); Eosinophils % 0.3 % (0.00-10.9); Hemoglobin 10.6 GM/DL (14.0-18.0); Immature Granulocytes % 0.9 %; Lymphocytes # 0.5 10*3/uL (1.4-4.0); Lymphocytes % 4.5 % (21.2-54.2); Mean Corpuscular HGB Conc 28.8 GM/DL (32-36); Mean Corpuscular Volume 94.1 FL (87-102); Mean Platelet Volume 11.5 FL (9.6-12.0); Monocytes % 5.5 % (1.7-12.7); Neutrophils % 88.5 % (38.7-73.9); Platelet Count 166 T/CUMM (130-400); Red Blood Count 3.91 MC/CUMM (3.8-5.5); Red Cell Distribution Width 15.6 % (9.3-17.3); White Blood Count 10.5 T/CUMM (4-12)
[2021-07-12 04:17] LABS: Hematocrit 36.8 VOL% (42.0-52.0)
[2021-07-12 04:20] LABS: ABG Base Excess -7.9 MMOL/L (-2.5-2.5); ABG HCO3 17.9 MMOL/L (20-26); ABG Oxygen Saturation 89.4 % (95-100); ABG PO2 73.8 MM HG (80-95); ABG TCO2 23.5 MMOL/L (23-27)
[2021-07-12 04:22] LABS: Albumin 2.1 G/DL (3.4-5.0); Bilirubin,Total 0.4 MG/DL (0.20-1.00); Calcium 7.2 MG/DL (8.5-10.1); Osmolality,Calculated 303.5 MOS/KG (273-304); Potassium 4.7 MMOL/L (3.5-5.1)
[2021-07-12 04:24] LABS: ABG PCO2 84.8 MM HG (35-48)
[2021-07-12] MEDS ORDERED: ROCURONIUM 100 MG/10 ML VIAL IV ONE ×2 (04:28→04:41)
[2021-07-12] MEDS ORDERED: ETOMIDATE 20 MG/10 ML VIAL IV ONE ×2 (04:28→04:40)
[2021-07-12] MEDS ORDERED: MIDAZOLAM 100 MG in SODIUM CHLORIDE 0.9% 80 ML IV PRN (04:46)
[2021-07-12] MEDS ORDERED: NOREPINEPHRINE 8 MG in SODIUM CHLORIDE 0.9% 242 ML IV PRN (04:47)
[2021-07-12] MEDS ORDERED: NOREPINEPHRINE 4 MG/4 ML VIAL IV ONE (04:47)
[2021-07-12] MEDS ORDERED: SODIUM BICARBONATE 50 MEQ/50 ML SYRINGE IV ONE ×2 (04:54→05:21)
[2021-07-12] MEDS ORDERED: ATROPINE 1 MG/10 ML SYRINGE IV ONE (05:21)
[2021-07-12] MEDS ORDERED: CALCIUM CHLORIDE 1,000 MG/10 ML SYRINGE IV ONE (05:21)
[2021-07-12] MEDS ORDERED: EPINEPHrine 1 MG/10 ML SYRINGE IV ONE (05:21)
[2021-07-12 05:48] LABS: ABG Base Excess -4.3 MMOL/L (-2.5-2.5); ABG HCO3 20.7 MMOL/L (20-26); ABG Oxygen Saturation 89.1 % (95-100); ABG PCO2 64.6 MM HG (35-48); ABG PO2 61.2 MM HG (80-95); ABG TCO2 23.4 MMOL/L (23-27)
[2021-07-12 05:52] LABS: ABG PH 7.194 (7.35-7.45)
[2021-07-12 06:08] LABS: Basophils % 0.2 % (0.0-0.8); Eosinophils % 0.2 % (0.00-10.9); Hematocrit 34.6 VOL% (42.0-52.0); Hemoglobin 10.2 GM/DL (14.0-18.0); Immature Granulocytes % 1.6 %; Immature Granulocytes Absolute 0.21 #; Lymphocytes # 1.1 10*3/uL (1.4-4.0); Lymphocytes % 8.2 % (21.2-54.2); Mean Corpuscular HGB Conc 29.5 GM/DL (32-36); Mean Corpuscular Volume 93.8 FL (87-102); Mean Platelet Volume 11.7 FL (9.6-12.0); Monocytes % 4.2 % (1.7-12.7); Neutrophils % 85.6 % (38.7-73.9); Platelet Count 176 T/CUMM (130-400); Red Blood Count 3.69 MC/CUMM (3.8-5.5); Red Cell Distribution Width 15.6 % (9.3-17.3); White Blood Count 12.9 T/CUMM (4-12)
[2021-07-12 06:16] LABS: Elliptocytes 1+; Platelet Estimate Adequate; Poikilocytosis 1+
[2021-07-12 06:43] LABS: Bilirubin,Total 0.5 MG/DL (0.20-1.00); Calcium 7.9 MG/DL (8.5-10.1); Osmolality,Calculated 308.4 MOS/KG (273-304); Potassium 4.5 MMOL/L (3.5-5.1); Total Protein 5.7 G/DL (6.4-8.2)
[2021-07-12] MEDS: ALBUTEROL/IPRATROPIUM 3 ML NEB RESP TX SCH ×3 (07:06→19:05)
[2021-07-12] MEDS: INSULIN LISPRO 100 UNIT/ML SUBCUT SCH ×3 (09:38→17:26)
[2021-07-12] MEDS: FUROSEMIDE 80 MG TABLET PO SCH (09:39)
[2021-07-12] MEDS: hydrALAZINE 25 MG TABLET PO PRN ×2 (09:39→21:04)
[2021-07-12] MEDS: FAMOTIDINE 20 MG TABLET PO SCH ×2 (09:39→20:52)
[2021-07-12] MEDS: INSULIN NPH 100 UNIT/ML SUBCUT SCH ×2 (09:39→16:40)
[2021-07-12] MEDS: CHOLECALCIFEROL 5,000 UNIT TABLET PO SCH (09:39)
[2021-07-12] MEDS: CITRIC ACID/SODIUM CITRATE 30 ML UDCUP PO SCH ×2 (09:40→20:57)
[2021-07-12] MEDS: cefTRIAXone 1,000 MG in SODIUM CHLORIDE 0.9% 100 ML IV SCH (09:40)
[2021-07-12] MEDS: DESITIN 4OZ/NYSTATIN 15 GRAM MIXTURE PASTE TOP SCH ×2 (09:40→20:52)
[2021-07-12 10:26] LABS: ABG Base Excess -3.7 MMOL/L (-2.5-2.5); ABG HCO3 21.4 MMOL/L (20-26); ABG Oxygen Saturation 99.4 % (95-100); ABG PCO2 40.8 MM HG (35-48); ABG PH 7.337 (7.35-7.45); ABG TCO2 20.2 MMOL/L (23-27); Pt O2 Delivery Device Ventilator
[2021-07-12] MEDS: ENOXAPARIN 30 MG/0.3 ML SYRINGE SUBCUT SCH (16:39)
[2021-07-12] MEDS: methylPREDNISolone SOD SUC 40 MG/1 ML VIAL IV SCH (16:39)
[2021-07-13] MEDS: INSULIN LISPRO 100 UNIT/ML SUBCUT SCH ×5 (00:33→23:45)
[2021-07-13] MEDS: ALBUTEROL/IPRATROPIUM 3 ML NEB RESP TX SCH ×4 (00:46→19:30)
[2021-07-13] MEDS: methylPREDNISolone SOD SUC 40 MG/1 ML VIAL IV SCH ×2 (03:22→15:34)
[2021-07-13 03:53] LABS: Basophils % 0.1 % (0.0-0.8); Hematocrit 29.2 VOL% (42.0-52.0); Lymphocytes # 0.3 10*3/uL (1.4-4.0); Lymphocytes % 3.2 % (21.2-54.2); Mean Corpuscular HGB Conc 30.8 GM/DL (32-36); Mean Corpuscular Volume 89.3 FL (87-102); Monocytes % 2.3 % (1.7-12.7); Neutrophils % 93.4 % (38.7-73.9); Platelet Count 159 T/CUMM (130-400); Red Blood Count 3.27 MC/CUMM (3.8-5.5); Red Cell Distribution Width 15.7 % (9.3-17.3); White Blood Count 10.1 T/CUMM (4-12)
[2021-07-13] MEDS: hydrALAZINE 25 MG TABLET PO PRN ×3 (04:15→18:52)
[2021-07-13 04:16] LABS: Albumin 1.6 G/DL (3.4-5.0); Bilirubin,Total 0.4 MG/DL (0.20-1.00); Calcium 7.5 MG/DL (8.5-10.1); Osmolality,Calculated 307.3 MOS/KG (273-304); Potassium 3.8 MMOL/L (3.5-5.1)
[2021-07-13 04:29] LABS: Lymphocytes 4 % (20-55); Segmented Neutrophils 95 % (50-85); Total Cells Counted 100
[2021-07-13 04:30] LABS: Hypochromia 1+; Microcytosis 1+; Ovalocytes Few; Platelet Estimate Adequate
[2021-07-13 04:32] LABS: ABG Base Excess 0.7 MMOL/L (-2.5-2.5); ABG HCO3 25.1 MMOL/L (20-26); ABG PCO2 37.1 MM HG (35-48); ABG PH 7.433 (7.35-7.45); ABG TCO2 22.6 MMOL/L (23-27)
[2021-07-13] MEDS: INSULIN NPH 100 UNIT/ML SUBCUT SCH ×2 (08:56→15:34)
[2021-07-13] MEDS: DESITIN 4OZ/NYSTATIN 15 GRAM MIXTURE PASTE TOP SCH ×2 (08:57→20:11)
[2021-07-13] MEDS: cefTRIAXone 1,000 MG in SODIUM CHLORIDE 0.9% 100 ML IV SCH (08:57)
[2021-07-13] MEDS: CITRIC ACID/SODIUM CITRATE 30 ML UDCUP PO SCH ×2 (08:57→20:11)
[2021-07-13] MEDS: CHOLECALCIFEROL 5,000 UNIT TABLET PO SCH (08:57)
[2021-07-13] MEDS: FUROSEMIDE 80 MG TABLET PO SCH (08:57)
[2021-07-13] MEDS: FAMOTIDINE 20 MG TABLET PO SCH ×2 (08:57→20:10)
[2021-07-13] MEDS: DOXAZOSIN 4 MG TABLET PO SCH ×2 (15:34→20:10)
[2021-07-13] MEDS: ENOXAPARIN 30 MG/0.3 ML SYRINGE SUBCUT SCH (15:34)
[2021-07-13] MEDS ORDERED: LABETALOL 20 MG/4 ML SYRINGE IV SCH (16:30)
[2021-07-13] MEDS ORDERED: LABETALOL 20 MG/4 ML SYRINGE IV PRN (16:53)
[2021-07-13] MEDS: FLUCONAZOLE INJ 200 MG/100 ML PREMIX IV SCH (17:36)
[2021-07-13] MEDS: niCARdipine INJ 50 MG in SODIUM CHLORIDE 0.9% 230 ML IV PRN (20:51)
[2021-07-14] MEDS: ALBUTEROL/IPRATROPIUM 3 ML NEB RESP TX SCH ×4 (00:35→19:40)
[2021-07-14] MEDS: methylPREDNISolone SOD SUC 40 MG/1 ML VIAL IV SCH ×2 (03:22→16:18)
[2021-07-14 04:35] LABS: ABG Base Excess 0.7 MMOL/L (-2.5-2.5); ABG HCO3 25.1 MMOL/L (20-26); ABG Oxygen Saturation 98.5 % (95-100); ABG PCO2 38.6 MM HG (35-48); ABG PH 7.421 (7.35-7.45); ABG TCO2 23.1 MMOL/L (23-27)
[2021-07-14 04:46] LABS: Hematocrit 29.4 VOL% (42.0-52.0); Hemoglobin 9.4 GM/DL (14.0-18.0); Immature Granulocytes % 0.6 %; Immature Granulocytes Absolute 0.06 #; Lymphocytes # 0.4 10*3/uL (1.4-4.0); Lymphocytes % 4.4 % (21.2-54.2); Mean Corpuscular Volume 87.2 FL (87-102); Mean Platelet Volume 12.2 FL (9.6-12.0); Monocytes % 5.4 % (1.7-12.7); Neutrophils % 89.6 % (38.7-73.9); Platelet Count 170 T/CUMM (130-400); Red Blood Count 3.37 MC/CUMM (3.8-5.5); Red Cell Distribution Width 15.5 % (9.3-17.3); White Blood Count 9.6 T/CUMM (4-12)
[2021-07-14 05:00] LABS: Albumin 1.6 G/DL (3.4-5.0); Bilirubin,Total 0.4 MG/DL (0.20-1.00); Calcium 7.4 MG/DL (8.5-10.1); Osmolality,Calculated 313.4 MOS/KG (273-304); Potassium 3.5 MMOL/L (3.5-5.1)
[2021-07-14] MEDS: INSULIN LISPRO 100 UNIT/ML SUBCUT SCH ×4 (05:25→23:48)
[2021-07-14 05:38] LABS: Lymphocytes 5 % (20-55); Segmented Neutrophils 91 % (50-85); Total Cells Counted 100
[2021-07-14 05:46] LABS: Burr Cells Slight; Microcytosis 1+; Ovalocytes Slight
[2021-07-14 05:47] LABS: Hypochromia 1+; Platelet Estimate Adequate
[2021-07-14] MEDS: cefTRIAXone 1,000 MG in SODIUM CHLORIDE 0.9% 100 ML IV SCH (08:52)
[2021-07-14] MEDS: CITRIC ACID/SODIUM CITRATE 30 ML UDCUP PO SCH ×2 (08:52→20:00)
[2021-07-14] MEDS: FUROSEMIDE 80 MG TABLET PO SCH (08:54)
[2021-07-14] MEDS: CHOLECALCIFEROL 5,000 UNIT TABLET PO SCH (08:54)
[2021-07-14] MEDS: FAMOTIDINE 20 MG TABLET PO SCH ×2 (08:54→20:00)
[2021-07-14] MEDS: INSULIN NPH 100 UNIT/ML SUBCUT SCH ×2 (08:54→16:18)
[2021-07-14] MEDS: DOXAZOSIN 4 MG TABLET PO SCH ×2 (08:54→20:00)
[2021-07-14] MEDS: DESITIN 4OZ/NYSTATIN 15 GRAM MIXTURE PASTE TOP SCH ×2 (08:55→20:00)
[2021-07-14] MEDS: ENOXAPARIN 30 MG/0.3 ML SYRINGE SUBCUT SCH (16:19)
[2021-07-14] MEDS: FLUCONAZOLE INJ 200 MG/100 ML PREMIX IV SCH (16:19)
[2021-07-14] MEDS: niCARdipine INJ 50 MG in SODIUM CHLORIDE 0.9% 230 ML IV PRN (23:03)
[2021-07-15] MEDS: ALBUTEROL/IPRATROPIUM 3 ML NEB RESP TX SCH ×4 (00:35→19:30)
[2021-07-15] MEDS: methylPREDNISolone SOD SUC 40 MG/1 ML VIAL IV SCH ×3 (02:46→23:23)
[2021-07-15 03:41] LABS: ABG Base Excess 2.1 MMOL/L (-2.5-2.5); ABG HCO3 26.5 MMOL/L (20-26); ABG Oxygen Saturation 98.1 % (95-100); ABG PCO2 40.4 MM HG (35-48); ABG PH 7.434 (7.35-7.45); ABG TCO2 27.7 MMOL/L (23-27)
[2021-07-15 04:39] LABS: Hematocrit 31.6 VOL% (42.0-52.0); Hemoglobin 9.7 GM/DL (14.0-18.0); Immature Granulocytes % 1.1 %; Immature Granulocytes Absolute 0.11 #; Lymphocytes # 0.4 10*3/uL (1.4-4.0); Lymphocytes % 3.5 % (21.2-54.2); Mean Corpuscular HGB Conc 30.7 GM/DL (32-36); Mean Platelet Volume 12.3 FL (9.6-12.0); Monocytes % 3.5 % (1.7-12.7); Neutrophils % 91.9 % (38.7-73.9); Platelet Count 181 T/CUMM (130-400); Red Blood Count 3.55 MC/CUMM (3.8-5.5); Red Cell Distribution Width 15.5 % (9.3-17.3); White Blood Count 10.4 T/CUMM (4-12)
[2021-07-15 05:00] LABS: Hypochromia 1+; Lymphocytes 4 % (20-55); Microcytosis 1+; Platelet Estimate Adequate; Segmented Neutrophils 95 % (50-85); Total Cells Counted 100
[2021-07-15 05:03] LABS: Albumin 1.6 G/DL (3.4-5.0); Bilirubin,Total 0.4 MG/DL (0.20-1.00); Calcium 7.2 MG/DL (8.5-10.1); Potassium 3.7 MMOL/L (3.5-5.1)
[2021-07-15] MEDS: INSULIN LISPRO 100 UNIT/ML SUBCUT SCH ×5 (05:42→23:23)
[2021-07-15] MEDS: INSULIN NPH 100 UNIT/ML SUBCUT SCH (09:02)
[2021-07-15] MEDS: cefTRIAXone 1,000 MG in SODIUM CHLORIDE 0.9% 100 ML IV SCH (09:02)
[2021-07-15] MEDS: DOXAZOSIN 4 MG TABLET PO SCH ×2 (09:03→20:06)
[2021-07-15] MEDS: CHOLECALCIFEROL 5,000 UNIT TABLET PO SCH (09:03)
[2021-07-15] MEDS: FUROSEMIDE 80 MG TABLET PO SCH (09:03)
[2021-07-15] MEDS: FAMOTIDINE 20 MG TABLET PO SCH ×2 (09:03→20:06)
[2021-07-15] MEDS: CITRIC ACID/SODIUM CITRATE 30 ML UDCUP PO SCH ×2 (09:03→20:07)
[2021-07-15] MEDS: DESITIN 4OZ/NYSTATIN 15 GRAM MIXTURE PASTE TOP SCH ×2 (09:05→20:07)
[2021-07-15] MEDS: INSULIN GLARGINE 100 UNIT/ML SUBCUT SCH (11:06)
[2021-07-15] MEDS: hydrALAZINE 25 MG TABLET PO SCH ×3 (13:07→20:06)
[2021-07-15] MEDS: APIXABAN 5 MG TABLET PO SCH ×2 (13:14→20:06)
[2021-07-15] MEDS: FLUCONAZOLE INJ 200 MG/100 ML PREMIX IV SCH (15:50)
[2021-07-15] MEDS: hydrALAZINE 20 MG/1 ML VIAL IV PRN (18:25)
[2021-07-15] MEDS: ATORVASTATIN 40 MG TABLET PO SCH (20:05)
[2021-07-16] MEDS: ALBUTEROL/IPRATROPIUM 3 ML NEB RESP TX SCH ×4 (00:36→19:38)
[2021-07-16 03:54] LABS: ABG Base Excess 3.5 MMOL/L (-2.5-2.5); ABG HCO3 27.6 MMOL/L (20-26); ABG Oxygen Saturation 98.6 % (95-100); ABG PCO2 43.6 MM HG (35-48); ABG PH 7.421 (7.35-7.45); ABG TCO2 25.7 MMOL/L (23-27)
[2021-07-16] MEDS: INSULIN LISPRO 100 UNIT/ML SUBCUT SCH ×6 (04:23→23:12)
[2021-07-16 04:32] LABS: Basophils % 0.1 % (0.0-0.8); Hematocrit 32.8 VOL% (42.0-52.0); Hemoglobin 10.1 GM/DL (14.0-18.0); Immature Granulocytes % 1.3 %; Immature Granulocytes Absolute 0.16 #; Lymphocytes # 0.4 10*3/uL (1.4-4.0); Lymphocytes % 3.3 % (21.2-54.2); Mean Corpuscular HGB Conc 30.8 GM/DL (32-36); Mean Corpuscular Volume 88.6 FL (87-102); Mean Platelet Volume 11.7 FL (9.6-12.0); Monocytes % 4.1 % (1.7-12.7); Neutrophils % 91.2 % (38.7-73.9); Platelet Count 198 T/CUMM (130-400); Red Cell Distribution Width 15.6 % (9.3-17.3); White Blood Count 12.2 T/CUMM (4-12)
[2021-07-16 04:49] LABS: Alanine Aminotransferase 10 U/L (16-61); Albumin 1.6 G/DL (3.4-5.0); Alkaline Phosphatase 118 U/L (45-117); Aspartate Amino Transferase 11 U/L (0-37); Bilirubin,Total < 0.39 MG/DL (0.20-1.00); Blood Urea Nitrogen 94 MG/DL (7-18); Calcium 7.2 MG/DL (8.5-10.1); Carbon Dioxide 27 MMOL/L (21-32); Estimated Glom Filtration Rate 10 ML/MIN; Glucose 142 MG/DL (74-106); Osmolality,Calculated 313.1 MOS/KG (273-304); Potassium 3.7 MMOL/L (3.5-5.1); Sodium 142 MMOL/L (136-145); Total Protein 4.8 G/DL (6.4-8.2)
[2021-07-16 04:54] LABS: Hypochromia 1+; Lymphocytes 6 % (20-55); Segmented Neutrophils 92 % (50-85); Total Cells Counted 100
[2021-07-16 04:55] LABS: Microcytosis 1+; Ovalocytes Slight; Platelet Estimate Adequate
[2021-07-16 05:02] LABS: Risk Ratio 2.91; VLDL Cholesterol 16.6 MG/DL
[2021-07-16] MEDS: CITRIC ACID/SODIUM CITRATE 30 ML UDCUP PO SCH ×2 (08:41→20:08)
[2021-07-16] MEDS: ASPIRIN EC 81 MG TABLET PO SCH (08:41)
[2021-07-16] MEDS: APIXABAN 5 MG TABLET PO SCH ×2 (08:41→20:08)
[2021-07-16] MEDS: hydrALAZINE 25 MG TABLET PO SCH ×4 (08:41→20:08)
[2021-07-16] MEDS: cefTRIAXone 1,000 MG in SODIUM CHLORIDE 0.9% 100 ML IV SCH (08:41)
[2021-07-16] MEDS: DOXAZOSIN 4 MG TABLET PO SCH ×2 (08:41→20:08)
[2021-07-16] MEDS: FUROSEMIDE 80 MG TABLET PO SCH (08:42)
[2021-07-16] MEDS: FAMOTIDINE 20 MG TABLET PO SCH ×2 (08:42→20:07)
[2021-07-16] MEDS: DESITIN 4OZ/NYSTATIN 15 GRAM MIXTURE PASTE TOP SCH ×2 (08:42→20:07)
[2021-07-16] MEDS: INSULIN GLARGINE 100 UNIT/ML SUBCUT SCH (08:42)
[2021-07-16] MEDS: CHOLECALCIFEROL 5,000 UNIT TABLET PO SCH (08:42)
[2021-07-16] MEDS ORDERED: CLOPIDOGREL 75 MG TABLET PO SCH (09:00)
[2021-07-16] MEDS: methylPREDNISolone SOD SUC 40 MG/1 ML VIAL IV SCH ×2 (10:10→22:33)
[2021-07-16] MEDS: hydrALAZINE 20 MG/1 ML VIAL IV PRN (11:14)
[2021-07-16] MEDS: FLUCONAZOLE INJ 200 MG/100 ML PREMIX IV SCH (16:53)
[2021-07-16] MEDS: ATORVASTATIN 40 MG TABLET PO SCH (20:08)
[2021-07-17] MEDS: ALBUTEROL/IPRATROPIUM 3 ML NEB RESP TX SCH ×4 (00:16→19:18)
[2021-07-17] MEDS: INSULIN LISPRO 100 UNIT/ML SUBCUT SCH ×5 (03:29→20:26)
[2021-07-17 04:01] LABS: ABG Base Excess 3.1 MMOL/L (-2.5-2.5); ABG HCO3 26.7 MMOL/L (20-26); ABG Oxygen Saturation 98.3 % (95-100); ABG PCO2 37.5 MM HG (35-48); ABG PH 7.471 (7.35-7.45); ABG PO2 126.3 MM HG (80-95); ABG TCO2 27.9 MMOL/L (23-27)
[2021-07-17 04:11] LABS: Osmolality,Calculated 313.5 MOS/KG (273-304); Potassium 3.9 MMOL/L (3.5-5.1)
[2021-07-17 04:12] LABS: Basophils % 0.2 % (0.0-0.8); Hematocrit 34.2 VOL% (42.0-52.0); Hemoglobin 10.5 GM/DL (14.0-18.0); Immature Granulocytes % 2.3 %; Immature Granulocytes Absolute 0.31 #; Lymphocytes # 0.4 10*3/uL (1.4-4.0); Lymphocytes % 3.2 % (21.2-54.2); Mean Corpuscular HGB Conc 30.7 GM/DL (32-36); Mean Corpuscular Volume 88.6 FL (87-102); Mean Platelet Volume 12.4 FL (9.6-12.0); Monocytes % 4.4 % (1.7-12.7); Neutrophils % 89.9 % (38.7-73.9); Platelet Count 204 T/CUMM (130-400); Red Blood Count 3.86 MC/CUMM (3.8-5.5); Red Cell Distribution Width 15.7 % (9.3-17.3); White Blood Count 13.2 T/CUMM (4-12)
[2021-07-17 04:34] LABS: Hypochromia Slight; Lymphocytes 3 % (20-55); Microcytosis Slight; Platelet Estimate Adequate; Segmented Neutrophils 94 % (50-85); Total Cells Counted 100
[2021-07-17] MEDS: ASPIRIN EC 81 MG TABLET PO SCH (09:01)
[2021-07-17] MEDS: INSULIN GLARGINE 100 UNIT/ML SUBCUT SCH (09:01)
[2021-07-17] MEDS: FAMOTIDINE 20 MG TABLET PO SCH ×2 (09:01→20:26)
[2021-07-17] MEDS: DOXAZOSIN 4 MG TABLET PO SCH ×2 (09:01→20:25)
[2021-07-17] MEDS: APIXABAN 5 MG TABLET PO SCH ×2 (09:01→20:26)
[2021-07-17] MEDS: hydrALAZINE 25 MG TABLET PO SCH ×4 (09:01→20:26)
[2021-07-17] MEDS: CHOLECALCIFEROL 5,000 UNIT TABLET PO SCH (09:01)
[2021-07-17] MEDS: cefTRIAXone 1,000 MG in SODIUM CHLORIDE 0.9% 100 ML IV SCH (09:02)
[2021-07-17] MEDS: FUROSEMIDE 80 MG TABLET PO SCH (09:02)
[2021-07-17] MEDS: DESITIN 4OZ/NYSTATIN 15 GRAM MIXTURE PASTE TOP SCH ×2 (09:02→20:27)
[2021-07-17] MEDS: CITRIC ACID/SODIUM CITRATE 30 ML UDCUP PO SCH ×2 (09:04→20:26)
[2021-07-17] MEDS: methylPREDNISolone SOD SUC 40 MG/1 ML VIAL IV SCH ×2 (09:59→22:40)
[2021-07-17] MEDS: FLUCONAZOLE INJ 200 MG/100 ML PREMIX IV SCH (16:43)
[2021-07-17] MEDS: ATORVASTATIN 40 MG TABLET PO SCH (20:26)
[2021-07-18] MEDS: INSULIN LISPRO 100 UNIT/ML SUBCUT SCH ×6 (00:15→20:17)
[2021-07-18] MEDS: ALBUTEROL/IPRATROPIUM 3 ML NEB RESP TX SCH ×4 (00:43→19:45)
[2021-07-18 03:08] LABS: ABG Base Excess 4.4 MMOL/L (-2.5-2.5); ABG HCO3 28.5 MMOL/L (20-26); ABG Oxygen Saturation 98.1 % (95-100); ABG PCO2 40.3 MM HG (35-48); ABG PH 7.467 (7.35-7.45); ABG PO2 116.6 MM HG (80-95); ABG TCO2 29.7 MMOL/L (23-27)
[2021-07-18 05:30] LABS: Basophils % 0.3 % (0.0-0.8); Eosinophils % 0.2 % (0.00-10.9); Hematocrit 35.7 VOL% (42.0-52.0); Hemoglobin 11.1 GM/DL (14.0-18.0); Immature Granulocytes % 3.7 %; Immature Granulocytes Absolute 0.57 #; Lymphocytes # 0.4 10*3/uL (1.4-4.0); Lymphocytes % 2.6 % (21.2-54.2); Mean Corpuscular HGB Conc 31.1 GM/DL (32-36); Mean Corpuscular Volume 88.4 FL (87-102); Mean Platelet Volume 12.2 FL (9.6-12.0); Monocytes % 4.2 % (1.7-12.7); Platelet Count 212 T/CUMM (130-400); Red Blood Count 4.04 MC/CUMM (3.8-5.5); Red Cell Distribution Width 15.7 % (9.3-17.3); White Blood Count 15.4 T/CUMM (4-12)
[2021-07-18 05:41] LABS: Calcium 6.9 MG/DL (8.5-10.1); Potassium 3.7 MMOL/L (3.5-5.1)
[2021-07-18 05:57] LABS: Lymphocytes 4 % (20-55); Platelet Estimate Adequate; Segmented Neutrophils 93 % (50-85); Total Cells Counted 100
[2021-07-18] MEDS: INSULIN GLARGINE 100 UNIT/ML SUBCUT SCH (09:00)
[2021-07-18] MEDS: DOXAZOSIN 4 MG TABLET PO SCH ×2 (09:01→20:16)
[2021-07-18] MEDS: ASPIRIN EC 81 MG TABLET PO SCH (09:01)
[2021-07-18] MEDS: hydrALAZINE 25 MG TABLET PO SCH ×4 (09:01→20:16)
[2021-07-18] MEDS: CHOLECALCIFEROL 5,000 UNIT TABLET PO SCH (09:01)
[2021-07-18] MEDS: APIXABAN 5 MG TABLET PO SCH ×2 (09:01→20:16)
[2021-07-18] MEDS: FUROSEMIDE 80 MG TABLET PO SCH (09:02)
[2021-07-18] MEDS: cefTRIAXone 1,000 MG in SODIUM CHLORIDE 0.9% 100 ML IV SCH (09:02)
[2021-07-18] MEDS: CITRIC ACID/SODIUM CITRATE 30 ML UDCUP PO SCH ×2 (09:02→20:16)
[2021-07-18] MEDS: FAMOTIDINE 20 MG TABLET PO SCH ×2 (09:02→20:16)
[2021-07-18] MEDS: methylPREDNISolone SOD SUC 40 MG/1 ML VIAL IV SCH ×2 (09:51→22:40)
[2021-07-18] MEDS: DESITIN 4OZ/NYSTATIN 15 GRAM MIXTURE PASTE TOP SCH ×2 (09:51→20:16)
[2021-07-18 12:28] LABS: Hepatitis B Core IgM Quant 0.14 Index; Hepatitis B Surface Ag Quant < 0.10 Index; Hepatitis B Surface Ag Result Non-Reactive (NonReactive); Hepatitis C Virus Ab Quant 0.07 Index; Hepatitis C Virus Ab Result Non-Reactive (NonReactive)
[2021-07-18] MEDS: FLUCONAZOLE INJ 200 MG/100 ML PREMIX IV SCH (15:54)
[2021-07-18] MEDS: ATORVASTATIN 40 MG TABLET PO SCH (20:17)
[2021-07-19] MEDS: INSULIN LISPRO 100 UNIT/ML SUBCUT SCH ×6 (00:58→21:12)
[2021-07-19] MEDS: ALBUTEROL/IPRATROPIUM 3 ML NEB RESP TX SCH ×4 (01:15→19:09)
[2021-07-19 04:04] LABS: ABG Base Excess 4.3 MMOL/L (-2.5-2.5); ABG HCO3 28.3 MMOL/L (20-26); ABG Oxygen Saturation 95.8 % (95-100); ABG PCO2 49.5 MM HG (35-48); ABG PH 7.394 (7.35-7.45); ABG PO2 83.8 MM HG (80-95); ABG TCO2 26.9 MMOL/L (23-27)
[2021-07-19 04:48] LABS: Basophils % 0.2 % (0.0-0.8); Hematocrit 36.9 VOL% (42.0-52.0); Hemoglobin 11.4 GM/DL (14.0-18.0); Immature Granulocytes % 3.3 %; Immature Granulocytes Absolute 0.55 #; Lymphocytes # 0.4 10*3/uL (1.4-4.0); Lymphocytes % 2.3 % (21.2-54.2); Mean Corpuscular HGB Conc 30.9 GM/DL (32-36); Mean Corpuscular Volume 88.7 FL (87-102); Mean Platelet Volume 12.2 FL (9.6-12.0); Monocytes % 3.3 % (1.7-12.7); Neutrophils % 90.9 % (38.7-73.9); Platelet Count 208 T/CUMM (130-400); Red Blood Count 4.16 MC/CUMM (3.8-5.5); Red Cell Distribution Width 15.8 % (9.3-17.3); White Blood Count 16.7 T/CUMM (4-12)
[2021-07-19 05:09] LABS: Hypochromia Slight; Lymphocytes 4 % (20-55); Microcytosis Slight; Platelet Estimate Adequate; Segmented Neutrophils 92 % (50-85); Total Cells Counted 100
[2021-07-19 05:10] LABS: Calcium 6.7 MG/DL (8.5-10.1); Osmolality,Calculated 320.1 MOS/KG (273-304); Potassium 3.9 MMOL/L (3.5-5.1)
[2021-07-19] MEDS: INSULIN GLARGINE 100 UNIT/ML SUBCUT SCH (08:23)
[2021-07-19] MEDS: CITRIC ACID/SODIUM CITRATE 30 ML UDCUP PO SCH ×2 (08:24→21:12)
[2021-07-19] MEDS: ASPIRIN EC 81 MG TABLET PO SCH (08:25)
[2021-07-19] MEDS: APIXABAN 5 MG TABLET PO SCH ×2 (08:25→21:04)
[2021-07-19] MEDS: FAMOTIDINE 20 MG TABLET PO SCH ×2 (08:25→21:03)
[2021-07-19] MEDS: DOXAZOSIN 4 MG TABLET PO SCH ×2 (08:25→21:03)
[2021-07-19] MEDS: hydrALAZINE 25 MG TABLET PO SCH ×2 (08:25→13:27)
[2021-07-19] MEDS: FUROSEMIDE 80 MG TABLET PO SCH (08:25)
[2021-07-19] MEDS: CHOLECALCIFEROL 5,000 UNIT TABLET PO SCH (08:25)
[2021-07-19] MEDS: DESITIN 4OZ/NYSTATIN 15 GRAM MIXTURE PASTE TOP SCH ×2 (08:26→21:11)
[2021-07-19] MEDS: methylPREDNISolone SOD SUC 40 MG/1 ML VIAL IV SCH ×2 (09:38→22:59)
[2021-07-19] MEDS ORDERED: DEXTROSE 10% 250 ML BAG IV PRN (09:58)
[2021-07-19] MEDS: FLUCONAZOLE INJ 200 MG/100 ML PREMIX IV SCH (16:43)
[2021-07-19] MEDS: hydrALAZINE 20 MG/1 ML VIAL IV PRN (18:10)
[2021-07-19] MEDS: ATORVASTATIN 40 MG TABLET PO SCH (21:03)
[2021-07-20] MEDS: ALBUTEROL/IPRATROPIUM 3 ML NEB RESP TX SCH ×4 (00:55→19:15)
[2021-07-20] MEDS ORDERED: NITROGLYCERIN SL 0.4 MG TABLET SL PRN (07:45)
[2021-07-20] MEDS: GABAPENTIN 300 MG CAPSULE PO SCH ×2 (09:03→20:18)
[2021-07-20] MEDS: APIXABAN 5 MG TABLET PO SCH ×2 (09:03→20:18)
[2021-07-20] MEDS: DOXAZOSIN 4 MG TABLET PO SCH ×2 (09:03→20:18)
[2021-07-20] MEDS: FAMOTIDINE 20 MG TABLET PO SCH ×2 (09:03→20:18)
[2021-07-20] MEDS: ASPIRIN EC 81 MG TABLET PO SCH (09:03)
[2021-07-20] MEDS: FUROSEMIDE 80 MG TABLET PO SCH (09:03)
[2021-07-20] MEDS: INSULIN LISPRO 100 UNIT/ML SUBCUT SCH ×4 (09:04→20:18)
[2021-07-20] MEDS: INSULIN GLARGINE 100 UNIT/ML SUBCUT SCH (09:04)
[2021-07-20] MEDS: CHOLECALCIFEROL 5,000 UNIT TABLET PO SCH (09:04)
[2021-07-20] MEDS: DESITIN 4OZ/NYSTATIN 15 GRAM MIXTURE PASTE TOP SCH ×2 (09:04→20:18)
[2021-07-20] MEDS: CITRIC ACID/SODIUM CITRATE 30 ML UDCUP PO SCH ×2 (09:05→20:18)
[2021-07-20] MEDS: methylPREDNISolone SOD SUC 40 MG/1 ML VIAL IV SCH ×2 (09:30→23:11)
[2021-07-20] MEDS: carvediloL 12.5 MG TABLET PO SCH ×2 (11:57→20:18)
[2021-07-20] MEDS: FLUCONAZOLE INJ 200 MG/100 ML PREMIX IV SCH (16:13)
[2021-07-20 18:46] LABS: % Iron Saturation 78.3 % (18-50)
[2021-07-20 19:21] LABS: Folate 6.2 NG/ML (5.38-24.0)
[2021-07-20] MEDS: ATORVASTATIN 40 MG TABLET PO SCH (20:18)
[2021-07-21] MEDS: ALBUTEROL/IPRATROPIUM 3 ML NEB RESP TX SCH ×4 (00:41→20:30)
[2021-07-21 04:14] LABS: Basophils % 0.2 % (0.0-0.8); Hematocrit 35.3 VOL% (42.0-52.0); Immature Granulocytes Absolute 0.37 #; Lymphocytes # 0.4 10*3/uL (1.4-4.0); Mean Corpuscular HGB Conc 31.2 GM/DL (32-36); Mean Corpuscular Volume 89.1 FL (87-102); Mean Platelet Volume 11.7 FL (9.6-12.0); Monocytes % 4.6 % (1.7-12.7); Neutrophils % 91.2 % (38.7-73.9); Platelet Count 211 T/CUMM (130-400); Red Blood Count 3.96 MC/CUMM (3.8-5.5); Red Cell Distribution Width 15.5 % (9.3-17.3); White Blood Count 18.5 T/CUMM (4-12)
[2021-07-21 04:28] LABS: Calcium 6.8 MG/DL (8.5-10.1); Osmolality,Calculated 327.1 MOS/KG (273-304); Potassium 3.7 MMOL/L (3.5-5.1)
[2021-07-21 05:17] LABS: Hypochromia Slight; Lymphocytes 3 % (20-55); Microcytosis Slight; Platelet Estimate Adequate; Segmented Neutrophils 88 % (50-85); Total Cells Counted 100
[2021-07-21] MEDS: INSULIN LISPRO 100 UNIT/ML SUBCUT SCH ×4 (08:54→20:04)
[2021-07-21] MEDS: FAMOTIDINE 20 MG TABLET PO SCH ×2 (08:55→20:04)
[2021-07-21] MEDS: carvediloL 12.5 MG TABLET PO SCH ×2 (08:55→20:04)
[2021-07-21] MEDS: CHOLECALCIFEROL 5,000 UNIT TABLET PO SCH (08:55)
[2021-07-21] MEDS: ASPIRIN EC 81 MG TABLET PO SCH (08:55)
[2021-07-21] MEDS: INSULIN GLARGINE 100 UNIT/ML SUBCUT SCH (08:55)
[2021-07-21] MEDS: APIXABAN 5 MG TABLET PO SCH ×2 (08:55→20:04)
[2021-07-21] MEDS: GABAPENTIN 300 MG CAPSULE PO SCH ×2 (08:55→20:04)
[2021-07-21] MEDS: DOXAZOSIN 4 MG TABLET PO SCH ×2 (08:55→20:04)
[2021-07-21] MEDS: FUROSEMIDE 80 MG TABLET PO SCH (08:55)
[2021-07-21] MEDS: CITRIC ACID/SODIUM CITRATE 30 ML UDCUP PO SCH ×2 (09:00→20:03)
[2021-07-21] MEDS: DESITIN 4OZ/NYSTATIN 15 GRAM MIXTURE PASTE TOP SCH ×2 (09:08→20:35)
[2021-07-21] MEDS: methylPREDNISolone SOD SUC 40 MG/1 ML VIAL IV SCH ×2 (09:30→22:30)
[2021-07-21] MEDS: ATORVASTATIN 40 MG TABLET PO SCH (20:04)
[2021-07-22] MEDS: ALBUTEROL/IPRATROPIUM 3 ML NEB RESP TX SCH ×4 (01:40→19:22)
[2021-07-22 04:25] LABS: Basophils % 0.1 % (0.0-0.8); Hematocrit 33.9 VOL% (42.0-52.0); Hemoglobin 10.2 GM/DL (14.0-18.0); Immature Granulocytes % 1.5 %; Immature Granulocytes Absolute 0.26 #; Lymphocytes # 0.3 10*3/uL (1.4-4.0); Lymphocytes % 1.7 % (21.2-54.2); Mean Corpuscular HGB Conc 30.1 GM/DL (32-36); Mean Corpuscular Volume 91.4 FL (87-102); Monocytes % 2.4 % (1.7-12.7); Neutrophils % 94.3 % (38.7-73.9); Platelet Count 204 T/CUMM (130-400); Red Blood Count 3.71 MC/CUMM (3.8-5.5); Red Cell Distribution Width 15.5 % (9.3-17.3); White Blood Count 17.4 T/CUMM (4-12)
[2021-07-22 04:43] LABS: Hypochromia Slight; Lymphocytes 4 % (20-55); Microcytosis Slight; Platelet Estimate Adequate; Segmented Neutrophils 95 % (50-85); Total Cells Counted 100
[2021-07-22 04:44] LABS: Calcium 6.6 MG/DL (8.5-10.1); Osmolality,Calculated 335.8 MOS/KG (273-304); Potassium 3.6 MMOL/L (3.5-5.1)
[2021-07-22] MEDS: methylPREDNISolone SOD SUC 40 MG/1 ML VIAL IV SCH ×2 (09:45→20:30)
[2021-07-22] MEDS: amLODIPine 5 MG TABLET PO SCH (09:45)
[2021-07-22] MEDS: INSULIN LISPRO 100 UNIT/ML SUBCUT SCH ×4 (09:45→20:43)
[2021-07-22] MEDS: ASPIRIN EC 81 MG TABLET PO SCH (09:46)
[2021-07-22] MEDS: FUROSEMIDE 80 MG TABLET PO SCH (09:46)
[2021-07-22] MEDS: INSULIN GLARGINE 100 UNIT/ML SUBCUT SCH (09:46)
[2021-07-22] MEDS: APIXABAN 5 MG TABLET PO SCH ×2 (09:47→20:30)
[2021-07-22] MEDS: GABAPENTIN 300 MG CAPSULE PO SCH ×2 (09:47→20:30)
[2021-07-22] MEDS: FAMOTIDINE 20 MG TABLET PO SCH ×2 (09:47→20:30)
[2021-07-22] MEDS: DOXAZOSIN 4 MG TABLET PO SCH ×2 (09:47→20:30)
[2021-07-22] MEDS: CHOLECALCIFEROL 5,000 UNIT TABLET PO SCH (09:47)
[2021-07-22] MEDS: CITRIC ACID/SODIUM CITRATE 30 ML UDCUP PO SCH ×2 (09:47→20:30)
[2021-07-22] MEDS: DESITIN 4OZ/NYSTATIN 15 GRAM MIXTURE PASTE TOP SCH ×2 (09:48→20:30)
[2021-07-22] MEDS: carvediloL 12.5 MG TABLET PO SCH ×2 (09:51→20:30)
[2021-07-22] MEDS: ATORVASTATIN 40 MG TABLET PO SCH (20:30)
[2021-07-23] MEDS: ALBUTEROL/IPRATROPIUM 3 ML NEB RESP TX SCH ×4 (01:20→21:40)
[2021-07-23] MEDS: DESITIN 4OZ/NYSTATIN 15 GRAM MIXTURE PASTE TOP SCH ×2 (09:28→21:54)
[2021-07-23] MEDS: INSULIN LISPRO 100 UNIT/ML SUBCUT SCH ×4 (09:49→20:42)
[2021-07-23] MEDS: INSULIN GLARGINE 100 UNIT/ML SUBCUT SCH (09:50)
[2021-07-23] MEDS: ASPIRIN EC 81 MG TABLET PO SCH (09:52)
[2021-07-23] MEDS: FAMOTIDINE 20 MG TABLET PO SCH ×2 (09:52→20:39)
[2021-07-23] MEDS: GABAPENTIN 300 MG CAPSULE PO SCH ×2 (09:53→20:39)
[2021-07-23] MEDS: CHOLECALCIFEROL 5,000 UNIT TABLET PO SCH (09:53)
[2021-07-23] MEDS: APIXABAN 5 MG TABLET PO SCH ×2 (09:53→20:39)
[2021-07-23] MEDS: amLODIPine 5 MG TABLET PO SCH (09:53)
[2021-07-23] MEDS: carvediloL 12.5 MG TABLET PO SCH ×2 (09:53→20:39)
[2021-07-23] MEDS: FUROSEMIDE 80 MG TABLET PO SCH (09:53)
[2021-07-23] MEDS: methylPREDNISolone SOD SUC 40 MG/1 ML VIAL IV SCH ×2 (09:53→21:54)
[2021-07-23] MEDS: DOXAZOSIN 4 MG TABLET PO SCH ×2 (09:53→20:39)
[2021-07-23] MEDS: CITRIC ACID/SODIUM CITRATE 30 ML UDCUP PO SCH ×2 (09:56→20:40)
[2021-07-23] MEDS: ATORVASTATIN 40 MG TABLET PO SCH (20:39)
[2021-07-24] MEDS: ALBUTEROL/IPRATROPIUM 3 ML NEB RESP TX SCH ×4 (01:15→19:10)
[2021-07-24 05:40] LABS: Calcium 6.7 MG/DL (8.5-10.1); Osmolality,Calculated 331.7 MOS/KG (273-304); Potassium 3.5 MMOL/L (3.5-5.1)
[2021-07-24 05:55] LABS: Basophils % 0.1 % (0.0-0.8); Hematocrit 34.5 VOL% (42.0-52.0); Hemoglobin 10.4 GM/DL (14.0-18.0); Immature Granulocytes % 0.7 %; Immature Granulocytes Absolute 0.11 #; Lymphocytes # 0.3 10*3/uL (1.4-4.0); Mean Corpuscular HGB Conc 30.1 GM/DL (32-36); Mean Corpuscular Volume 90.6 FL (87-102); Mean Platelet Volume 12.2 FL (9.6-12.0); Monocytes % 2.8 % (1.7-12.7); Neutrophils % 94.4 % (38.7-73.9); Platelet Count 217 T/CUMM (130-400); Red Blood Count 3.81 MC/CUMM (3.8-5.5); Red Cell Distribution Width 15.5 % (9.3-17.3); White Blood Count 16.3 T/CUMM (4-12)
[2021-07-24 06:21] LABS: Band Neutrophils 2 % (0-10); Hypochromia 1+; Lymphocytes 1 % (20-55); Microcytosis 1+; Ovalocytes Few; Segmented Neutrophils 96 % (50-85); Total Cells Counted 100
[2021-07-24 06:22] LABS: Platelet Estimate Normal
[2021-07-24] MEDS: INSULIN LISPRO 100 UNIT/ML SUBCUT SCH ×4 (09:47→21:55)
[2021-07-24] MEDS: methylPREDNISolone SOD SUC 40 MG/1 ML VIAL IV SCH (09:47)
[2021-07-24] MEDS: amLODIPine 5 MG TABLET PO SCH (09:48)
[2021-07-24] MEDS: ASPIRIN EC 81 MG TABLET PO SCH (09:48)
[2021-07-24] MEDS: CHOLECALCIFEROL 5,000 UNIT TABLET PO SCH (09:48)
[2021-07-24] MEDS: FUROSEMIDE 80 MG TABLET PO SCH (09:48)
[2021-07-24] MEDS: FAMOTIDINE 20 MG TABLET PO SCH ×2 (09:48→21:54)
[2021-07-24] MEDS: DOXAZOSIN 4 MG TABLET PO SCH ×2 (09:48→21:55)
[2021-07-24] MEDS: INSULIN GLARGINE 100 UNIT/ML SUBCUT SCH (09:48)
[2021-07-24] MEDS: GABAPENTIN 300 MG CAPSULE PO SCH ×2 (09:48→21:54)
[2021-07-24] MEDS: APIXABAN 5 MG TABLET PO SCH ×2 (09:49→21:54)
[2021-07-24] MEDS: DESITIN 4OZ/NYSTATIN 15 GRAM MIXTURE PASTE TOP SCH ×2 (09:49→21:55)
[2021-07-24] MEDS: carvediloL 12.5 MG TABLET PO SCH ×2 (09:49→21:54)
[2021-07-24] MEDS: CITRIC ACID/SODIUM CITRATE 30 ML UDCUP PO SCH ×2 (10:02→21:55)
[2021-07-24] MEDS: ATORVASTATIN 40 MG TABLET PO SCH (21:55)
[2021-07-25] MEDS: ALBUTEROL/IPRATROPIUM 3 ML NEB RESP TX SCH ×4 (00:01→19:19)
[2021-07-25] MEDS: predniSONE 20 MG TABLET PO SCH (10:32)
[2021-07-25] MEDS: amLODIPine 5 MG TABLET PO SCH (10:32)
[2021-07-25] MEDS: ASPIRIN EC 81 MG TABLET PO SCH (10:32)
[2021-07-25] MEDS: FAMOTIDINE 20 MG TABLET PO SCH (10:32)
[2021-07-25] MEDS: CHOLECALCIFEROL 5,000 UNIT TABLET PO SCH (10:32)
[2021-07-25] MEDS: FUROSEMIDE 80 MG TABLET PO SCH (10:32)
[2021-07-25] MEDS: carvediloL 12.5 MG TABLET PO SCH ×2 (10:33→22:05)
[2021-07-25] MEDS: DOXAZOSIN 4 MG TABLET PO SCH ×2 (10:33→22:05)
[2021-07-25] MEDS: GABAPENTIN 300 MG CAPSULE PO SCH (10:33)
[2021-07-25] MEDS: INSULIN GLARGINE 100 UNIT/ML SUBCUT SCH (10:36)
[2021-07-25] MEDS: INSULIN LISPRO 100 UNIT/ML SUBCUT SCH ×4 (10:38→22:05)
[2021-07-25] MEDS: APIXABAN 5 MG TABLET PO SCH (10:43)
[2021-07-25] MEDS: CITRIC ACID/SODIUM CITRATE 30 ML UDCUP PO SCH ×2 (10:48→22:07)
[2021-07-25] MEDS: DESITIN 4OZ/NYSTATIN 15 GRAM MIXTURE PASTE TOP SCH ×2 (10:49→22:10)
[2021-07-25 11:21] LABS: Hematocrit 32.6 VOL% (42.0-52.0); Hemoglobin 10.2 GM/DL (14.0-18.0)
[2021-07-25] MEDS: PANTOPRAZOLE 40 MG VIAL IV SCH ×2 (13:03→22:05)
[2021-07-25] MEDS: ATORVASTATIN 40 MG TABLET PO SCH (22:05)
[2021-07-26] MEDS: ALBUTEROL/IPRATROPIUM 3 ML NEB RESP TX SCH ×4 (00:01→20:10)
[2021-07-26] MEDS: INSULIN LISPRO 100 UNIT/ML SUBCUT SCH ×4 (07:58→21:31)
[2021-07-26] MEDS: DOXAZOSIN 4 MG TABLET PO SCH ×2 (09:37→21:08)
[2021-07-26] MEDS: ASPIRIN EC 81 MG TABLET PO SCH (09:37)
[2021-07-26] MEDS: amLODIPine 5 MG TABLET PO SCH (09:37)
[2021-07-26] MEDS: CHOLECALCIFEROL 5,000 UNIT TABLET PO SCH (09:37)
[2021-07-26] MEDS: predniSONE 20 MG TABLET PO SCH (09:37)
[2021-07-26] MEDS: carvediloL 12.5 MG TABLET PO SCH ×2 (09:37→21:07)
[2021-07-26] MEDS: INSULIN GLARGINE 100 UNIT/ML SUBCUT SCH (09:38)
[2021-07-26] MEDS: CITRIC ACID/SODIUM CITRATE 30 ML UDCUP PO SCH ×2 (09:39→21:08)
[2021-07-26 10:10] LABS: Basophils % 0.1 % (0.0-0.8); Eosinophils # 0.1 10*3/uL (0.0-0.87); Eosinophils % 0.4 % (0.00-10.9); Hematocrit 34.6 VOL% (42.0-52.0); Hemoglobin 10.7 GM/DL (14.0-18.0); Immature Granulocytes % 0.8 %; Immature Granulocytes Absolute 0.12 #; Lymphocytes # 0.7 10*3/uL (1.4-4.0); Lymphocytes % 4.3 % (21.2-54.2); Mean Corpuscular HGB Conc 30.9 GM/DL (32-36); Mean Corpuscular Volume 88.5 FL (87-102); Mean Platelet Volume 12.1 FL (9.6-12.0); Monocytes % 6.2 % (1.7-12.7); Neutrophils % 88.2 % (38.7-73.9); Platelet Count 206 T/CUMM (130-400); Red Blood Count 3.91 MC/CUMM (3.8-5.5); Red Cell Distribution Width 15.6 % (9.3-17.3)
[2021-07-26] MEDS: PANTOPRAZOLE 40 MG VIAL IV SCH (10:29)
[2021-07-26 10:35] LABS: Anisocytosis 1+; Band Neutrophils 2 % (0-10); Burr Cells Few; Eosinophils 1 % (0-10); Lymphocytes 7 % (20-55); Ovalocytes Few; Platelet Estimate Normal; Segmented Neutrophils 84 % (50-85); Total Cells Counted 100
[2021-07-26] MEDS ORDERED: SUCRALFATE 1 GM TABLET PO SCH (12:00)
[2021-07-26] MEDS: DESITIN 4OZ/NYSTATIN 15 GRAM MIXTURE PASTE TOP SCH ×2 (17:38→21:31)
[2021-07-26] MEDS: ENOXAPARIN 100 MG/ML SYRINGE SUBCUT SCH (17:39)
[2021-07-26] MEDS: ATORVASTATIN 40 MG TABLET PO SCH (21:08)
[2021-07-26] MEDS: PANTOPRAZOLE 40 MG TABLET PO SCH (21:08)
[2021-07-27] MEDS: ALBUTEROL/IPRATROPIUM 3 ML NEB RESP TX SCH ×4 (01:25→20:00)
[2021-07-27 05:33] LABS: Basophils % 0.1 % (0.0-0.8); Eosinophils # 0.1 10*3/uL (0.0-0.87); Eosinophils % 0.5 % (0.00-10.9); Hematocrit 31.3 VOL% (42.0-52.0); Hemoglobin 9.6 GM/DL (14.0-18.0); Immature Granulocytes % 0.9 %; Immature Granulocytes Absolute 0.12 #; Lymphocytes # 0.6 10*3/uL (1.4-4.0); Lymphocytes % 4.6 % (21.2-54.2); Mean Corpuscular HGB Conc 30.7 GM/DL (32-36); Mean Corpuscular Volume 88.2 FL (87-102); Monocytes % 6.5 % (1.7-12.7); Neutrophils % 87.4 % (38.7-73.9); Platelet Count 198 T/CUMM (130-400); Red Blood Count 3.55 MC/CUMM (3.8-5.5); Red Cell Distribution Width 15.5 % (9.3-17.3)
[2021-07-27 06:02] LABS: Hypochromia 1+; Lymphocytes 2 % (20-55); Microcytosis 1+; Platelet Estimate Adequate; Segmented Neutrophils 95 % (50-85); Total Cells Counted 100
[2021-07-27] MEDS: INSULIN LISPRO 100 UNIT/ML SUBCUT SCH ×4 (07:54→22:41)
[2021-07-27] MEDS: carvediloL 12.5 MG TABLET PO SCH ×2 (09:57→22:38)
[2021-07-27] MEDS: ASPIRIN EC 81 MG TABLET PO SCH (09:57)
[2021-07-27] MEDS: CHOLECALCIFEROL 5,000 UNIT TABLET PO SCH (09:57)
[2021-07-27] MEDS: predniSONE 20 MG TABLET PO SCH (09:57)
[2021-07-27] MEDS: amLODIPine 5 MG TABLET PO SCH (09:57)
[2021-07-27] MEDS: DOXAZOSIN 4 MG TABLET PO SCH ×2 (09:57→22:38)
[2021-07-27] MEDS: PANTOPRAZOLE 40 MG TABLET PO SCH ×2 (09:58→22:38)
[2021-07-27] MEDS: CITRIC ACID/SODIUM CITRATE 30 ML UDCUP PO SCH ×2 (09:58→22:38)
[2021-07-27] MEDS: INSULIN GLARGINE 100 UNIT/ML SUBCUT SCH (09:59)
[2021-07-27] MEDS: DESITIN 4OZ/NYSTATIN 15 GRAM MIXTURE PASTE TOP SCH ×2 (10:05→22:41)
[2021-07-27] MEDS: ENOXAPARIN 100 MG/ML SYRINGE SUBCUT SCH (17:27)
[2021-07-27] MEDS ORDERED: VANCOMYCIN 1,000 MG VIAL INTRAPERIT ONE (19:02)
[2021-07-27] MEDS: ATORVASTATIN 40 MG TABLET PO SCH (22:38)
[2021-07-28] MEDS ORDERED: VANCOMYCIN 1,000 MG VIAL INTRAPERIT ONE
[2021-07-28] MEDS: ALBUTEROL/IPRATROPIUM 3 ML NEB RESP TX SCH ×4 (01:43→20:00)
[2021-07-28 05:45] LABS: Basophils % 0.1 % (0.0-0.8); Eosinophils % 0.3 % (0.00-10.9); Hematocrit 29.4 VOL% (42.0-52.0); Hemoglobin 8.8 GM/DL (14.0-18.0); Lymphocytes # 0.5 10*3/uL (1.4-4.0); Lymphocytes % 5.2 % (21.2-54.2); Mean Corpuscular HGB Conc 29.9 GM/DL (32-36); Mean Corpuscular Volume 89.4 FL (87-102); Mean Platelet Volume 12.3 FL (9.6-12.0); Monocytes % 6.2 % (1.7-12.7); Neutrophils % 87.5 % (38.7-73.9); Platelet Count 184 T/CUMM (130-400); Red Blood Count 3.29 MC/CUMM (3.8-5.5); Red Cell Distribution Width 15.6 % (9.3-17.3); White Blood Count 9.7 T/CUMM (4-12)
[2021-07-28 06:03] LABS: Albumin 1.3 G/DL (3.4-5.0); Bilirubin,Total 1.4 MG/DL (0.20-1.00); Calcium 6.1 MG/DL (8.5-10.1); Osmolality,Calculated 324.6 MOS/KG (273-304); Total Protein 4.2 G/DL (6.4-8.2)
[2021-07-28] MEDS: PANTOPRAZOLE 40 MG TABLET PO SCH ×2 (06:05→21:46)
[2021-07-28] MEDS: INSULIN LISPRO 100 UNIT/ML SUBCUT SCH ×4 (07:39→21:47)
[2021-07-28] MEDS: INSULIN GLARGINE 100 UNIT/ML SUBCUT SCH (09:21)
[2021-07-28] MEDS: DOXAZOSIN 4 MG TABLET PO SCH ×2 (09:22→21:47)
[2021-07-28] MEDS: predniSONE 20 MG TABLET PO SCH (09:22)
[2021-07-28] MEDS: amLODIPine 5 MG TABLET PO SCH (09:22)
[2021-07-28] MEDS: carvediloL 12.5 MG TABLET PO SCH ×2 (09:22→21:46)
[2021-07-28] MEDS: CITRIC ACID/SODIUM CITRATE 30 ML UDCUP PO SCH ×2 (09:22→21:48)
[2021-07-28] MEDS: CHOLECALCIFEROL 5,000 UNIT TABLET PO SCH (09:22)
[2021-07-28] MEDS: BISACODYL 5 MG TABLET PO SCH ×2 (09:22→17:15)
[2021-07-28] MEDS: DESITIN 4OZ/NYSTATIN 15 GRAM MIXTURE PASTE TOP SCH ×2 (09:23→21:48)
[2021-07-28] MEDS: ASPIRIN EC 81 MG TABLET PO SCH (12:51)
[2021-07-28] MEDS ORDERED: POLYETHYLENE GLYCOL 3350/ELECTROLYTES 4,000 ML BOTTLE PO ONE (16:00)
[2021-07-28] MEDS ORDERED: MAGNESIUM CITRATE 300 ML BOTTLE PO ONE (21:00)
[2021-07-28] MEDS: ATORVASTATIN 40 MG TABLET PO SCH (21:46)
[2021-07-29] MEDS: BISACODYL 5 MG TABLET PO SCH (00:25)
[2021-07-29] MEDS: ALBUTEROL/IPRATROPIUM 3 ML NEB RESP TX SCH ×4 (02:05→19:59)
[2021-07-29 07:26] LABS: Basophils % 0.1 % (0.0-0.8); Eosinophils # 0.1 10*3/uL (0.0-0.87); Eosinophils % 0.6 % (0.00-10.9); Hematocrit 30.1 VOL% (42.0-52.0); Immature Granulocytes % 0.9 %; Immature Granulocytes Absolute 0.09 #; Lymphocytes # 0.7 10*3/uL (1.4-4.0); Lymphocytes % 7.1 % (21.2-54.2); Mean Corpuscular HGB Conc 29.9 GM/DL (32-36); Mean Corpuscular Volume 89.6 FL (87-102); Mean Platelet Volume 12.6 FL (9.6-12.0); Monocytes % 6.5 % (1.7-12.7); Neutrophils % 84.8 % (38.7-73.9); Platelet Count 179 T/CUMM (130-400); Red Blood Count 3.36 MC/CUMM (3.8-5.5); Red Cell Distribution Width 15.6 % (9.3-17.3); White Blood Count 9.7 T/CUMM (4-12)
[2021-07-29] MEDS ORDERED: MAGNESIUM CITRATE 300 ML BOTTLE PO STA (08:42)
[2021-07-29] MEDS ORDERED: POTASSIUM CHLORIDE 20 MEQ TABLET PO ONE (09:00)
[2021-07-29] MEDS ORDERED: TAMSULOSIN 0.4 MG CAPSULE PO SCH ×2 (09:00→21:00)
[2021-07-29] MEDS: POTASSIUM CHLORIDE RIDER 10 MEQ/100 ML PREMIX IV SCH ×4 (09:03→12:51)
[2021-07-29] MEDS: ASPIRIN EC 81 MG TABLET PO SCH (09:04)
[2021-07-29] MEDS: INSULIN GLARGINE 100 UNIT/ML SUBCUT SCH (09:04)
[2021-07-29] MEDS: CHOLECALCIFEROL 5,000 UNIT TABLET PO SCH (09:05)
[2021-07-29] MEDS: DOXAZOSIN 4 MG TABLET PO SCH ×2 (09:05→21:43)
[2021-07-29] MEDS: predniSONE 20 MG TABLET PO SCH (09:05)
[2021-07-29] MEDS: carvediloL 12.5 MG TABLET PO SCH ×2 (09:05→21:43)
[2021-07-29] MEDS: amLODIPine 5 MG TABLET PO SCH (09:05)
[2021-07-29] MEDS: PANTOPRAZOLE 40 MG TABLET PO SCH ×2 (09:07→21:45)
[2021-07-29] MEDS: CITRIC ACID/SODIUM CITRATE 30 ML UDCUP PO SCH ×2 (09:08→21:44)
[2021-07-29] MEDS: DESITIN 4OZ/NYSTATIN 15 GRAM MIXTURE PASTE TOP SCH ×2 (10:12→21:44)
[2021-07-29] MEDS: INSULIN LISPRO 100 UNIT/ML SUBCUT SCH ×4 (10:48→21:52)
[2021-07-29] MEDS: POTASSIUM CHLORIDE 20 MEQ TABLET PO SCH ×2 (12:53→21:43)
[2021-07-29] MEDS ORDERED: POLYETHYLENE GLYCOL 3350/ELECTROLYTES 4,000 ML BOTTLE PO ONE (13:00)
[2021-07-29] MEDS ORDERED: MAGNESIUM SULF RIDER 2 GM/50 ML PREMIX IV ONE (17:00)
[2021-07-29] MEDS: TAMSULOSIN 0.4 MG CAPSULE PO SCH (21:43)
[2021-07-29] MEDS: ATORVASTATIN 40 MG TABLET PO SCH (21:43)
[2021-07-30] MEDS: ALBUTEROL/IPRATROPIUM 3 ML NEB RESP TX SCH ×4 (00:30→19:10)
[2021-07-30 06:12] LABS: Basophils % 0.1 % (0.0-0.8); Eosinophils # 0.1 10*3/uL (0.0-0.87); Eosinophils % 0.8 % (0.00-10.9); Hematocrit 28.5 VOL% (42.0-52.0); Hemoglobin 8.5 GM/DL (14.0-18.0); Immature Granulocytes % 0.6 %; Immature Granulocytes Absolute 0.04 #; Lymphocytes # 0.5 10*3/uL (1.4-4.0); Mean Corpuscular HGB Conc 29.8 GM/DL (32-36); Mean Corpuscular Volume 88.8 FL (87-102); Mean Platelet Volume 11.5 FL (9.6-12.0); Monocytes % 7.1 % (1.7-12.7); Neutrophils % 84.4 % (38.7-73.9); Platelet Count 157 T/CUMM (130-400); Red Blood Count 3.21 MC/CUMM (3.8-5.5); Red Cell Distribution Width 15.2 % (9.3-17.3); White Blood Count 7.2 T/CUMM (4-12)
[2021-07-30 06:23] LABS: Osmolality,Calculated 317.8 MOS/KG (273-304); Potassium 3.8 MMOL/L (3.5-5.1)
[2021-07-30 06:25] LABS: Calcium 5.6 MG/DL (8.5-10.1)
[2021-07-30] MEDS ORDERED: SODIUM CHLORIDE 0.9% 1,000 ML IV SCH (07:45)
[2021-07-30] MEDS: PANTOPRAZOLE 40 MG TABLET PO SCH ×2 (08:14→21:28)
[2021-07-30] MEDS ORDERED: ePHEDrine 50 MG/ML VIAL ONE (08:21)
[2021-07-30] MEDS ORDERED: LIDOCAINE 2% 5 ML VIAL ONE (08:45)
[2021-07-30] MEDS ORDERED: propofoL 200 MG/20 ML VIAL IV ONE (08:45)
[2021-07-30] MEDS ORDERED: ETOMIDATE 20 MG/10 ML VIAL IV ONE (08:45)
[2021-07-30] MEDS: predniSONE 20 MG TABLET PO SCH (10:21)
[2021-07-30] MEDS: INSULIN GLARGINE 100 UNIT/ML SUBCUT SCH (10:21)
[2021-07-30] MEDS: amLODIPine 5 MG TABLET PO SCH (10:22)
[2021-07-30] MEDS: CHOLECALCIFEROL 5,000 UNIT TABLET PO SCH (10:22)
[2021-07-30] MEDS: carvediloL 12.5 MG TABLET PO SCH ×2 (10:22→21:29)
[2021-07-30] MEDS: ASPIRIN EC 81 MG TABLET PO SCH (10:22)
[2021-07-30] MEDS: POTASSIUM CHLORIDE 20 MEQ TABLET PO SCH (10:22)
[2021-07-30] MEDS: DOXAZOSIN 4 MG TABLET PO SCH ×2 (10:22→21:28)
[2021-07-30] MEDS: CITRIC ACID/SODIUM CITRATE 30 ML UDCUP PO SCH ×2 (10:24→21:28)
[2021-07-30] MEDS: INSULIN LISPRO 100 UNIT/ML SUBCUT SCH ×4 (11:09→21:29)
[2021-07-30] MEDS: DESITIN 4OZ/NYSTATIN 15 GRAM MIXTURE PASTE TOP SCH ×2 (11:09→21:29)
[2021-07-30] MEDS: CALCIUM (CARBONATE) 500 MG TABLET PO SCH ×2 (13:45→17:11)
[2021-07-30] MEDS: APIXABAN 5 MG TABLET PO SCH (19:26)
[2021-07-30] MEDS: TAMSULOSIN 0.4 MG CAPSULE PO SCH (21:28)
[2021-07-30] MEDS: ATORVASTATIN 40 MG TABLET PO SCH (21:29)
[2021-07-31 05:55] LABS: Basophils % 0.1 % (0.0-0.8); Eosinophils % 0.3 % (0.00-10.9); Hematocrit 29.1 VOL% (42.0-52.0); Hemoglobin 8.7 GM/DL (14.0-18.0); Immature Granulocytes % 0.8 %; Immature Granulocytes Absolute 0.06 #; Lymphocytes # 0.4 10*3/uL (1.4-4.0); Lymphocytes % 5.5 % (21.2-54.2); Mean Corpuscular HGB Conc 29.9 GM/DL (32-36); Mean Corpuscular Volume 90.1 FL (87-102); Mean Platelet Volume 11.6 FL (9.6-12.0); Monocytes % 5.9 % (1.7-12.7); Neutrophils % 87.4 % (38.7-73.9); Platelet Count 142 T/CUMM (130-400); Red Blood Count 3.23 MC/CUMM (3.8-5.5); Red Cell Distribution Width 15.3 % (9.3-17.3); White Blood Count 7.1 T/CUMM (4-12)
[2021-07-31 06:02] LABS: Calcium 6.6 MG/DL (8.5-10.1); Osmolality,Calculated 317.4 MOS/KG (273-304); Potassium 3.6 MMOL/L (3.5-5.1)
[2021-07-31] MEDS: ALBUTEROL/IPRATROPIUM 3 ML NEB RESP TX SCH ×3 (07:16→14:35)
[2021-07-31] MEDS: PANTOPRAZOLE 40 MG TABLET PO SCH (08:20)
[2021-07-31] MEDS: INSULIN GLARGINE 100 UNIT/ML SUBCUT SCH (08:20)
[2021-07-31] MEDS: carvediloL 12.5 MG TABLET PO SCH (08:20)
[2021-07-31] MEDS: INSULIN LISPRO 100 UNIT/ML SUBCUT SCH ×2 (08:20→12:51)
[2021-07-31] MEDS: CALCIUM (CARBONATE) 500 MG TABLET PO SCH ×2 (08:20→13:58)
[2021-07-31] MEDS: ASPIRIN EC 81 MG TABLET PO SCH (08:20)
[2021-07-31] MEDS: amLODIPine 5 MG TABLET PO SCH (08:20)
[2021-07-31] MEDS: predniSONE 20 MG TABLET PO SCH (08:21)
[2021-07-31] MEDS: DOXAZOSIN 4 MG TABLET PO SCH (08:21)
[2021-07-31] MEDS: DESITIN 4OZ/NYSTATIN 15 GRAM MIXTURE PASTE TOP SCH (08:21)
[2021-07-31] MEDS: CHOLECALCIFEROL 5,000 UNIT TABLET PO SCH (08:21)
[2021-07-31] MEDS: CITRIC ACID/SODIUM CITRATE 30 ML UDCUP PO SCH (08:22)
[2021-07-31 15:42] VITALS: BP 127/68
== END 2021-07-31 16:38 | DRG 981 ==
LOC: N.OR 09:09 → N.SDSINP 09:12 → N.CC 14:55 → SUATTDRO 18:31 → N.5E 07-23 19:37
PROVIDERS: ADMIT Internal Medicine; ATTEND Hospitalist
PROC: COLONHP (2021-07-30 08:05)

== ENCOUNTER 2021-08-04 09:50 | Inpatient (IN) ==
[2021-08-04 11:30] LABS: Basophils % 0.2 % (0.0-0.8); Eosinophils % 0.5 % (0.00-10.9); Hemoglobin 8.7 GM/DL (14.0-18.0); Immature Granulocytes Absolute 0.06 #; Lymphocytes # 0.5 10*3/uL (1.4-4.0); Lymphocytes % 9.1 % (21.2-54.2); Mean Corpuscular Volume 88.4 FL (87-102); Mean Platelet Volume 12.2 FL (9.6-12.0); Neutrophils % 84.2 % (38.7-73.9); Platelet Count 118 T/CUMM (130-400); Red Blood Count 3.28 MC/CUMM (3.8-5.5); Red Cell Distribution Width 15.5 % (9.3-17.3); White Blood Count 5.8 T/CUMM (4-12)
[2021-08-04 11:48] LABS: Albumin 1.5 G/DL (3.4-5.0); Bilirubin,Total 0.4 MG/DL (0.20-1.00); Osmolality,Calculated 313.4 MOS/KG (273-304); Potassium 3.2 MMOL/L (3.5-5.1); Total Protein 4.5 G/DL (6.4-8.2)
[2021-08-04] MEDS ORDERED: GLUCAGON 1 MG VIAL IM PRN (13:21)
[2021-08-04] MEDS ORDERED: ALBUTEROL/IPRATROPIUM 3 ML NEB RESP TX PRN (13:21)
[2021-08-04] MEDS ORDERED: ACETAMINOPHEN 325 MG TABLET PO PRN (13:21)
[2021-08-04] MEDS ORDERED: BISACODYL 5 MG TABLET PO PRN (13:21)
[2021-08-04] MEDS ORDERED: ALBUTEROL 2.5 MG/3 ML NEB RESP TX PRN (13:24)
[2021-08-04] MEDS: INSULIN LISPRO 100 UNIT/ML SUBCUT SCH (17:27)
[2021-08-04] MEDS ORDERED: INFLUENZA VIRUS VACCINE 0.5 ML SYRINGE IM ONE (17:31)
[2021-08-04] MEDS: CALCIUM (CARBONATE) 500 MG TABLET PO SCH (18:01)
[2021-08-04] MEDS: ALBUTEROL/IPRATROPIUM 3 ML NEB RESP TX SCH (19:40)
[2021-08-04 20:04] LABS: Calcium 7.1 MG/DL (8.5-10.1); Osmolality,Calculated 312.6 MOS/KG (273-304); Potassium 3.1 MMOL/L (3.5-5.1)
[2021-08-04] MEDS ORDERED: carvediloL 12.5 MG TABLET PO SCH (21:00)
[2021-08-04] MEDS: ATORVASTATIN 40 MG TABLET PO SCH (22:19)
[2021-08-04] MEDS: CITRIC ACID/SODIUM CITRATE 30 ML UDCUP PO SCH (22:19)
[2021-08-04] MEDS: TAMSULOSIN 0.4 MG CAPSULE PO SCH (22:20)
[2021-08-04] MEDS: DOXAZOSIN 4 MG TABLET PO SCH (22:20)
[2021-08-04] MEDS: DOCUSATE SODIUM 100 MG CAPSULE PO SCH (22:20)
[2021-08-04] MEDS: APIXABAN 5 MG TABLET PO SCH (22:20)
[2021-08-04] MEDS: DESITIN 4OZ/NYSTATIN 15 GRAM MIXTURE PASTE TOP SCH (22:22)
[2021-08-05] MEDS: ALBUTEROL/IPRATROPIUM 3 ML NEB RESP TX SCH ×4 (00:42→20:00)
[2021-08-05] MEDS: INSULIN LISPRO 100 UNIT/ML SUBCUT SCH ×5 (01:55→23:23)
[2021-08-05 06:34] LABS: Basophils % 0.3 % (0.0-0.8); Eosinophils % 0.7 % (0.00-10.9); Hematocrit 29.1 VOL% (42.0-52.0); Hemoglobin 8.9 GM/DL (14.0-18.0); Immature Granulocytes % 0.7 %; Immature Granulocytes Absolute 0.04 #; Lymphocytes # 0.5 10*3/uL (1.4-4.0); Lymphocytes % 9.1 % (21.2-54.2); Mean Corpuscular HGB Conc 30.6 GM/DL (32-36); Mean Corpuscular Volume 87.7 FL (87-102); Mean Platelet Volume 12.4 FL (9.6-12.0); Monocytes % 5.4 % (1.7-12.7); Neutrophils % 83.8 % (38.7-73.9); Platelet Count 106 T/CUMM (130-400); Red Blood Count 3.32 MC/CUMM (3.8-5.5); Red Cell Distribution Width 15.6 % (9.3-17.3); White Blood Count 5.7 T/CUMM (4-12)
[2021-08-05 06:43] LABS: Albumin 1.6 G/DL (3.4-5.0); Bilirubin,Total 0.5 MG/DL (0.20-1.00); Calcium 7.7 MG/DL (8.5-10.1); Osmolality,Calculated 312.7 MOS/KG (273-304); Potassium 3.1 MMOL/L (3.5-5.1); Total Protein 4.8 G/DL (6.4-8.2)
[2021-08-05 06:45] LABS: Hypochromia 1+; Microcytosis 1+
[2021-08-05] MEDS ORDERED: POTASSIUM CHLORIDE 20 MEQ TABLET PO PRN (07:37)
[2021-08-05] MEDS ORDERED: carvediloL 12.5 MG TABLET PO SCH (08:00)
[2021-08-05] MEDS ORDERED: INSULIN GLARGINE 100 UNIT/ML SUBCUT SCH (09:00)
[2021-08-05] MEDS: CALCIUM (CARBONATE) 500 MG TABLET PO SCH ×3 (11:33→17:47)
[2021-08-05] MEDS: ASPIRIN EC 81 MG TABLET PO SCH (11:34)
[2021-08-05] MEDS: CITRIC ACID/SODIUM CITRATE 30 ML UDCUP PO SCH ×2 (11:34→21:59)
[2021-08-05] MEDS: APIXABAN 5 MG TABLET PO SCH (11:34)
[2021-08-05] MEDS: LACTULOSE 20 GM/30 ML UDCUP PO SCH ×2 (11:34→18:21)
[2021-08-05] MEDS: DOXAZOSIN 4 MG TABLET PO SCH ×2 (11:34→21:58)
[2021-08-05] MEDS: CHOLECALCIFEROL 5,000 UNIT TABLET PO SCH (11:34)
[2021-08-05] MEDS: amLODIPine 5 MG TABLET PO SCH (11:34)
[2021-08-05] MEDS: DESITIN 4OZ/NYSTATIN 15 GRAM MIXTURE PASTE TOP SCH ×2 (11:43→21:59)
[2021-08-05] MEDS ORDERED: NITROGLYCERIN SL 0.4 MG TABLET SL PRN (11:44)
[2021-08-05 12:16] LABS: Arterial Base Excess iSTAT 9 MMOL/L (-2.5-2.5); Arterial Bicarbonate iSTAT 35.3 MMOL/L (20-26); Arterial O2 Saturation iSTAT 89 % (95-100); Arterial PCO2 iSTAT 55 MM HG (35-48); Arterial PO2 iSTAT 58 MM HG (80-95); Arterial Total CO2 iSTAT 37 MMO/L (23-27); Arterial pH iSTAT 7.412 (7.35-7.45)
[2021-08-05] MEDS: DOCUSATE SODIUM 100 MG CAPSULE PO SCH ×2 (12:27→23:23)
[2021-08-05] MEDS: DEXTROSE 10% 250 ML BAG IV PRN ×2 (16:08→20:20)
[2021-08-05 16:11] LABS: Arterial PCO2 iSTAT 45 MM HG (35-48); Arterial pH iSTAT 7.488 (7.35-7.45)
[2021-08-05 16:12] LABS: Arterial Base Excess iSTAT 9 MMOL/L (-2.5-2.5); Arterial Bicarbonate iSTAT 33.8 MMOL/L (20-26); Arterial O2 Saturation iSTAT 95 % (95-100); Arterial PO2 iSTAT 72 MM HG (80-95); Arterial Total CO2 iSTAT 35 MMO/L (23-27)
[2021-08-05] MEDS ORDERED: APIXABAN 2.5 MG TABLET PO SCH (21:00)
[2021-08-05] MEDS: TAMSULOSIN 0.4 MG CAPSULE PO SCH (21:58)
[2021-08-05] MEDS: ATORVASTATIN 40 MG TABLET PO SCH (21:58)
[2021-08-05 23:03] LABS: RBC,Urine 4 /HPF (0-4); Squamous Epithelial Cell,Urine Occasional /HPF (0-10)
[2021-08-05 23:04] LABS: Urine Color Yellow (Yellow)
[2021-08-05 23:05] LABS: Bilirubin,Urine Negative (Negative); Blood, Urine Small mg/dL (Negative); Glucose,Urine (UA) Negative (Negative); Ketones,Urine Negative (Negative); Nitrite,Urine Negative (Negative); Protein,Urine >=300 mg/dL (Negative); Urine Appearance SL CLOUDY (Clear); Urine Specific Gravity 1.025 (1.001-1.035); Urine Urobilinogen 0.2 eU/dL (<2.0); Urine pH 5.5 (4.5-8.0)
[2021-08-06] MEDS: ALBUTEROL/IPRATROPIUM 3 ML NEB RESP TX SCH ×4 (00:37→19:45)
[2021-08-06] MEDS: LACTULOSE 20 GM/30 ML UDCUP PO SCH ×4 (00:40→18:22)
[2021-08-06 06:09] LABS: Basophils % 0.3 % (0.0-0.8); Eosinophils # 0.1 10*3/uL (0.0-0.87); Hematocrit 27.2 VOL% (42.0-52.0); Hemoglobin 8.2 GM/DL (14.0-18.0); Immature Granulocytes % 0.7 %; Immature Granulocytes Absolute 0.04 #; Lymphocytes # 0.5 10*3/uL (1.4-4.0); Lymphocytes % 8.3 % (21.2-54.2); Mean Corpuscular HGB Conc 30.1 GM/DL (32-36); Mean Corpuscular Volume 88.9 FL (87-102); Monocytes % 5.4 % (1.7-12.7); NRBC # 0.02 10*3/uL; Neutrophils % 84.3 % (38.7-73.9); Platelet Count 94 T/CUMM (130-400); Red Blood Count 3.06 MC/CUMM (3.8-5.5); Red Cell Distribution Width 15.6 % (9.3-17.3); White Blood Count 5.8 T/CUMM (4-12)
[2021-08-06 06:27] LABS: Calcium 7.7 MG/DL (8.5-10.1); Osmolality,Calculated 308.4 MOS/KG (273-304); Potassium 3.3 MMOL/L (3.5-5.1)
[2021-08-06 06:31] LABS: Hypochromia 1+; Microcytosis 1+
[2021-08-06 06:32] LABS: Ovalocytes Few; Platelet Estimate Decreased
[2021-08-06] MEDS: DEXTROSE 10% 250 ML BAG IV PRN (06:36)
[2021-08-06] MEDS: INSULIN LISPRO 100 UNIT/ML SUBCUT SCH ×4 (08:14→21:14)
[2021-08-06] MEDS: amLODIPine 5 MG TABLET PO SCH (09:30)
[2021-08-06] MEDS: ASPIRIN EC 81 MG TABLET PO SCH (09:30)
[2021-08-06] MEDS: CHOLECALCIFEROL 5,000 UNIT TABLET PO SCH (09:30)
[2021-08-06] MEDS: DOXAZOSIN 4 MG TABLET PO SCH ×2 (09:30→21:14)
[2021-08-06] MEDS: CALCIUM (CARBONATE) 500 MG TABLET PO SCH ×3 (09:30→18:23)
[2021-08-06] MEDS: DOCUSATE SODIUM 100 MG CAPSULE PO SCH ×2 (09:30→21:14)
[2021-08-06] MEDS: DESITIN 4OZ/NYSTATIN 15 GRAM MIXTURE PASTE TOP SCH ×2 (09:31→21:16)
[2021-08-06] MEDS: CITRIC ACID/SODIUM CITRATE 30 ML UDCUP PO SCH ×2 (09:31→21:16)
[2021-08-06 09:36] LABS: ABG Base Excess 7.9 MMOL/L (-2.5-2.5); ABG HCO3 31.7 MMOL/L (20-26); ABG Oxygen Saturation 99.2 % (95-100); ABG PCO2 65.8 MM HG (35-48); ABG PH 7.338 (7.35-7.45); ABG TCO2 33.2 MMOL/L (23-27)
[2021-08-06] MEDS: DEXTROSE 5% 1,000 ML IV SCH (09:36)
[2021-08-06] MEDS ORDERED: POTASSIUM CHLORIDE 20 MEQ TABLET PO ONE (13:00)
[2021-08-06 14:52] LABS: Arterial Base Excess iSTAT 10 MMOL/L (-2.5-2.5); Arterial Bicarbonate iSTAT 35.6 MMOL/L (20-26); Arterial O2 Saturation iSTAT 97 % (95-100); Arterial PCO2 iSTAT 57 MM HG (35-48); Arterial PO2 iSTAT 94 MM HG (80-95); Arterial Total CO2 iSTAT 37 MMO/L (23-27); Arterial pH iSTAT 7.407 (7.35-7.45)
[2021-08-06] MEDS: ATORVASTATIN 40 MG TABLET PO SCH (21:14)
[2021-08-06] MEDS: TAMSULOSIN 0.4 MG CAPSULE PO SCH (21:14)
[2021-08-07] MEDS: LACTULOSE 20 GM/30 ML UDCUP PO SCH ×5 (00:16→17:18)
[2021-08-07] MEDS: ALBUTEROL/IPRATROPIUM 3 ML NEB RESP TX SCH ×4 (01:30→19:30)
[2021-08-07 05:45] LABS: Basophils % 0.2 % (0.0-0.8); Eosinophils # 0.1 10*3/uL (0.0-0.87); Eosinophils % 1.2 % (0.00-10.9); Hematocrit 28.1 VOL% (42.0-52.0); Hemoglobin 8.2 GM/DL (14.0-18.0); Immature Granulocytes % 0.8 %; Immature Granulocytes Absolute 0.04 #; Lymphocytes # 0.4 10*3/uL (1.4-4.0); Lymphocytes % 7.5 % (21.2-54.2); Mean Corpuscular HGB Conc 29.2 GM/DL (32-36); Mean Corpuscular Volume 92.4 FL (87-102); Mean Platelet Volume 13.6 FL (9.6-12.0); Monocytes % 5.4 % (1.7-12.7); Neutrophils % 84.9 % (38.7-73.9); Platelet Count 87 T/CUMM (130-400); Red Blood Count 3.04 MC/CUMM (3.8-5.5); Red Cell Distribution Width 15.8 % (9.3-17.3); White Blood Count 5.2 T/CUMM (4-12)
[2021-08-07] MEDS ORDERED: DIAZEPAM 5 MG TABLET PO ONE (06:00)
[2021-08-07] MEDS ORDERED: ceFAZolin 1,000 MG VIAL IRRIG ONE (06:00)
[2021-08-07 06:07] LABS: Hypochromia 1+; Microcytosis 1+
[2021-08-07 06:08] LABS: Ovalocytes Few; Platelet Estimate Decreased
[2021-08-07] MEDS: DEXTROSE 5% 1,000 ML IV SCH ×2 (06:12→19:45)
[2021-08-07 07:14] LABS: Calcium 7.8 MG/DL (8.5-10.1); Osmolality,Calculated 307.8 MOS/KG (273-304); Potassium 3.2 MMOL/L (3.5-5.1)
[2021-08-07] MEDS: INSULIN LISPRO 100 UNIT/ML SUBCUT SCH ×4 (08:46→23:49)
[2021-08-07] MEDS ORDERED: diphenhydrAMINE CAP 25 MG CAPSULE PO ONE (11:30)
[2021-08-07] MEDS: DOCUSATE SODIUM 100 MG CAPSULE PO SCH ×2 (11:44→21:58)
[2021-08-07] MEDS: CALCIUM (CARBONATE) 500 MG TABLET PO SCH ×3 (11:44→17:17)
[2021-08-07] MEDS: ASPIRIN EC 81 MG TABLET PO SCH (11:44)
[2021-08-07] MEDS: DOXAZOSIN 4 MG TABLET PO SCH ×2 (11:44→21:57)
[2021-08-07] MEDS: CITRIC ACID/SODIUM CITRATE 30 ML UDCUP PO SCH ×2 (11:44→21:59)
[2021-08-07] MEDS: CHOLECALCIFEROL 5,000 UNIT TABLET PO SCH (11:45)
[2021-08-07] MEDS: DESITIN 4OZ/NYSTATIN 15 GRAM MIXTURE PASTE TOP SCH ×2 (11:45→21:58)
[2021-08-07] MEDS: amLODIPine 5 MG TABLET PO SCH (11:45)
[2021-08-07] MEDS ORDERED: POTASSIUM CHLORIDE 20 MEQ TABLET PO ONE (14:00)
[2021-08-07] MEDS: ATORVASTATIN 40 MG TABLET PO SCH (21:58)
[2021-08-07] MEDS: TAMSULOSIN 0.4 MG CAPSULE PO SCH (21:58)
[2021-08-08] MEDS: LACTULOSE 20 GM/30 ML UDCUP PO SCH ×5 (00:07→23:31)
[2021-08-08] MEDS: ALBUTEROL/IPRATROPIUM 3 ML NEB RESP TX SCH ×4 (02:00→19:20)
[2021-08-08] MEDS ORDERED: ceFAZolin 1,000 MG VIAL IRRIG ONE (06:00)
[2021-08-08 06:40] LABS: Basophils % 0.4 % (0.0-0.8); Eosinophils # 0.1 10*3/uL (0.0-0.87); Eosinophils % 1.3 % (0.00-10.9); Hematocrit 28.5 VOL% (42.0-52.0); Hemoglobin 8.5 GM/DL (14.0-18.0); Immature Granulocytes % 0.6 %; Immature Granulocytes Absolute 0.03 #; Lymphocytes # 0.6 10*3/uL (1.4-4.0); Lymphocytes % 11.1 % (21.2-54.2); Mean Corpuscular HGB Conc 29.8 GM/DL (32-36); Mean Corpuscular Volume 90.2 FL (87-102); Mean Platelet Volume 13.4 FL (9.6-12.0); Monocytes % 7.5 % (1.7-12.7); Neutrophils % 79.1 % (38.7-73.9); Platelet Count 94 T/CUMM (130-400); Red Blood Count 3.16 MC/CUMM (3.8-5.5); Red Cell Distribution Width 15.4 % (9.3-17.3); White Blood Count 5.2 T/CUMM (4-12)
[2021-08-08 07:00] LABS: Calcium 7.5 MG/DL (8.5-10.1); Potassium 3.5 MMOL/L (3.5-5.1)
[2021-08-08 07:07] LABS: Hypochromia Slight; Microcytosis Slight; Platelet Estimate Decreased
[2021-08-08] MEDS: INSULIN LISPRO 100 UNIT/ML SUBCUT SCH ×4 (07:47→21:55)
[2021-08-08] MEDS: CALCIUM (CARBONATE) 500 MG TABLET PO SCH ×3 (08:28→16:06)
[2021-08-08] MEDS: ASPIRIN EC 81 MG TABLET PO SCH (08:28)
[2021-08-08] MEDS: DOXAZOSIN 4 MG TABLET PO SCH ×2 (08:28→21:57)
[2021-08-08] MEDS: CITRIC ACID/SODIUM CITRATE 30 ML UDCUP PO SCH ×2 (08:28→21:56)
[2021-08-08] MEDS: CHOLECALCIFEROL 5,000 UNIT TABLET PO SCH (08:29)
[2021-08-08] MEDS: DESITIN 4OZ/NYSTATIN 15 GRAM MIXTURE PASTE TOP SCH ×2 (08:29→22:05)
[2021-08-08] MEDS: DOCUSATE SODIUM 100 MG CAPSULE PO SCH ×2 (08:29→21:57)
[2021-08-08] MEDS: amLODIPine 5 MG TABLET PO SCH (08:29)
[2021-08-08] MEDS ORDERED: LIDOCAINE 1%/EPI INJ 20 ML VIAL ONE (09:56)
[2021-08-08] MEDS ORDERED: HEPARIN/NACL 0.9% 2 UNITS/ML 1,000 UNIT/500 ML BAG IV ONE (09:56)
[2021-08-08] MEDS ORDERED: ceFAZolin 1,000 MG VIAL ONE ×2 (09:59→10:00)
[2021-08-08] MEDS ORDERED: SODIUM CHLORIDE 0.9% 1,000 ML IV ONE (11:51)
[2021-08-08] MEDS ORDERED: MIDAZOLAM 2 MG/2 ML VIAL ONE (11:51)
[2021-08-08] MEDS: DEXTROSE 5% 1,000 ML IV SCH (21:55)
[2021-08-08] MEDS: TAMSULOSIN 0.4 MG CAPSULE PO SCH (21:57)
[2021-08-08] MEDS: ATORVASTATIN 40 MG TABLET PO SCH (21:57)
[2021-08-08] MEDS: APIXABAN 2.5 MG TABLET PO SCH (21:57)
[2021-08-09] MEDS: ALBUTEROL/IPRATROPIUM 3 ML NEB RESP TX SCH ×4 (01:45→19:50)
[2021-08-09 06:02] LABS: Basophils % 0.4 % (0.0-0.8); Eosinophils # 0.1 10*3/uL (0.0-0.87); Eosinophils % 1.4 % (0.00-10.9); Hematocrit 26.8 VOL% (42.0-52.0); Immature Granulocytes % 0.6 %; Immature Granulocytes Absolute 0.03 #; Lymphocytes # 0.7 10*3/uL (1.4-4.0); Lymphocytes % 13.4 % (21.2-54.2); Mean Corpuscular HGB Conc 29.9 GM/DL (32-36); Mean Corpuscular Volume 91.2 FL (87-102); Mean Platelet Volume 13.5 FL (9.6-12.0); Monocytes % 8.9 % (1.7-12.7); Neutrophils % 75.3 % (38.7-73.9); Platelet Count 80 T/CUMM (130-400); Red Blood Count 2.94 MC/CUMM (3.8-5.5); Red Cell Distribution Width 15.5 % (9.3-17.3); White Blood Count 4.9 T/CUMM (4-12)
[2021-08-09 06:03] LABS: Calcium 7.7 MG/DL (8.5-10.1); Osmolality,Calculated 306.7 MOS/KG (273-304); Potassium 3.2 MMOL/L (3.5-5.1)
[2021-08-09 06:21] LABS: Hypochromia 1+; Microcytosis 1+; Platelet Estimate Decreased
[2021-08-09] MEDS ORDERED: POTASSIUM CHLORIDE 20 MEQ TABLET PO ONE (07:27)
[2021-08-09] MEDS: LACTULOSE 20 GM/30 ML UDCUP PO SCH ×3 (07:43→18:56)
[2021-08-09] MEDS: CALCIUM (CARBONATE) 500 MG TABLET PO SCH ×3 (10:56→18:52)
[2021-08-09] MEDS: CITRIC ACID/SODIUM CITRATE 30 ML UDCUP PO SCH ×2 (10:56→21:30)
[2021-08-09] MEDS: DOXAZOSIN 4 MG TABLET PO SCH ×2 (10:56→21:30)
[2021-08-09] MEDS: DESITIN 4OZ/NYSTATIN 15 GRAM MIXTURE PASTE TOP SCH ×2 (10:56→21:32)
[2021-08-09] MEDS: APIXABAN 2.5 MG TABLET PO SCH ×2 (10:56→21:31)
[2021-08-09] MEDS: INSULIN LISPRO 100 UNIT/ML SUBCUT SCH ×4 (10:56→21:31)
[2021-08-09] MEDS: ASPIRIN EC 81 MG TABLET PO SCH (10:56)
[2021-08-09] MEDS: DOCUSATE SODIUM 100 MG CAPSULE PO SCH ×2 (10:56→21:30)
[2021-08-09] MEDS: CHOLECALCIFEROL 5,000 UNIT TABLET PO SCH (10:57)
[2021-08-09] MEDS: amLODIPine 5 MG TABLET PO SCH (10:57)
[2021-08-09 11:32] LABS: % Iron Saturation 19.6 % (18-50); Ferritin 549.7 ng/mL (26-388)
[2021-08-09] MEDS ORDERED: GLUCAGON 1 MG VIAL IM PRN (11:52)
[2021-08-09] MEDS ORDERED: DEXTROSE 10% 250 ML BAG IV PRN (11:52)
[2021-08-09] MEDS: DEXTROSE 5% 1,000 ML IV SCH (20:18)
[2021-08-09] MEDS: FERROUS SULFATE 325 MG TABLET PO SCH (21:30)
[2021-08-09] MEDS: carvediloL 3.125 MG TABLET PO SCH (21:31)
[2021-08-09] MEDS: TAMSULOSIN 0.4 MG CAPSULE PO SCH (21:31)
[2021-08-09] MEDS: ATORVASTATIN 40 MG TABLET PO SCH (21:31)
[2021-08-10] MEDS: LACTULOSE 20 GM/30 ML UDCUP PO SCH ×4 (01:34→17:44)
[2021-08-10] MEDS: ALBUTEROL/IPRATROPIUM 3 ML NEB RESP TX SCH ×4 (02:26→19:16)
[2021-08-10] MEDS: INSULIN LISPRO 100 UNIT/ML SUBCUT SCH ×4 (09:02→22:05)
[2021-08-10] MEDS: DOCUSATE SODIUM 100 MG CAPSULE PO SCH ×2 (09:03→22:06)
[2021-08-10] MEDS: CALCIUM (CARBONATE) 500 MG TABLET PO SCH ×3 (09:03→17:43)
[2021-08-10] MEDS: CITRIC ACID/SODIUM CITRATE 30 ML UDCUP PO SCH ×2 (09:03→22:04)
[2021-08-10] MEDS: carvediloL 3.125 MG TABLET PO SCH ×2 (09:03→22:06)
[2021-08-10] MEDS: DOXAZOSIN 4 MG TABLET PO SCH ×2 (09:03→22:05)
[2021-08-10] MEDS: ASPIRIN EC 81 MG TABLET PO SCH (09:03)
[2021-08-10] MEDS: FERROUS SULFATE 325 MG TABLET PO SCH ×2 (09:04→22:06)
[2021-08-10] MEDS: APIXABAN 2.5 MG TABLET PO SCH ×2 (09:04→22:06)
[2021-08-10] MEDS: CHOLECALCIFEROL 5,000 UNIT TABLET PO SCH (09:04)
[2021-08-10] MEDS: DESITIN 4OZ/NYSTATIN 15 GRAM MIXTURE PASTE TOP SCH ×2 (09:04→22:06)
[2021-08-10 10:17] LABS: Basophils % 0.4 % (0.0-0.8); Eosinophils # 0.1 10*3/uL (0.0-0.87); Eosinophils % 1.6 % (0.00-10.9); Hematocrit 27.6 VOL% (42.0-52.0); Hemoglobin 8.4 GM/DL (14.0-18.0); Immature Granulocytes % 0.6 %; Immature Granulocytes Absolute 0.03 #; Lymphocytes # 0.7 10*3/uL (1.4-4.0); Lymphocytes % 13.9 % (21.2-54.2); Mean Corpuscular HGB Conc 30.4 GM/DL (32-36); Mean Corpuscular Volume 90.2 FL (87-102); Monocytes % 8.8 % (1.7-12.7); Neutrophils % 74.7 % (38.7-73.9); Platelet Count 70 T/CUMM (130-400); Red Blood Count 3.06 MC/CUMM (3.8-5.5); Red Cell Distribution Width 15.5 % (9.3-17.3)
[2021-08-10 10:38] LABS: Albumin 1.4 G/DL (3.4-5.0); Bilirubin,Total 0.5 MG/DL (0.20-1.00); Calcium 8.1 MG/DL (8.5-10.1); Osmolality,Calculated 309.4 MOS/KG (273-304); Potassium 3.4 MMOL/L (3.5-5.1); Total Protein 4.7 G/DL (6.4-8.2)
[2021-08-10 10:44] LABS: Hypochromia 1+; Microcytosis 1+; Ovalocytes Slight; Platelet Estimate Decreased
[2021-08-10] MEDS ORDERED: POLYETHYLENE GLYCOL POWDER 255 GM BOTTLE PO PRN (12:45)
[2021-08-10] MEDS: DEXTROSE 5% 1,000 ML IV SCH (18:32)
[2021-08-10] MEDS: TAMSULOSIN 0.4 MG CAPSULE PO SCH (22:05)
[2021-08-10] MEDS: ATORVASTATIN 40 MG TABLET PO SCH (22:06)
[2021-08-11] MEDS: ALBUTEROL/IPRATROPIUM 3 ML NEB RESP TX SCH ×4 (00:05→19:27)
[2021-08-11] MEDS: LACTULOSE 20 GM/30 ML UDCUP PO SCH ×4 (00:54→18:17)
[2021-08-11 05:50] LABS: Albumin 1.5 G/DL (3.4-5.0); Bilirubin,Total 0.6 MG/DL (0.20-1.00); Osmolality,Calculated 304.7 MOS/KG (273-304); Potassium 3.4 MMOL/L (3.5-5.1); Total Protein 4.9 G/DL (6.4-8.2)
[2021-08-11] MEDS: INSULIN LISPRO 100 UNIT/ML SUBCUT SCH ×4 (09:02→21:48)
[2021-08-11] MEDS: CALCIUM (CARBONATE) 500 MG TABLET PO SCH ×3 (09:44→18:17)
[2021-08-11] MEDS: DESITIN 4OZ/NYSTATIN 15 GRAM MIXTURE PASTE TOP SCH ×2 (09:45→21:47)
[2021-08-11] MEDS: APIXABAN 2.5 MG TABLET PO SCH (09:45)
[2021-08-11] MEDS: carvediloL 3.125 MG TABLET PO SCH ×2 (09:45→21:43)
[2021-08-11] MEDS: DOCUSATE SODIUM 100 MG CAPSULE PO SCH ×2 (09:45→21:43)
[2021-08-11] MEDS: DOXAZOSIN 4 MG TABLET PO SCH ×2 (09:45→21:43)
[2021-08-11] MEDS: CITRIC ACID/SODIUM CITRATE 30 ML UDCUP PO SCH ×2 (09:45→21:43)
[2021-08-11] MEDS: CHOLECALCIFEROL 5,000 UNIT TABLET PO SCH (09:45)
[2021-08-11] MEDS: FERROUS SULFATE 325 MG TABLET PO SCH ×2 (09:45→21:42)
[2021-08-11] MEDS: ASPIRIN EC 81 MG TABLET PO SCH (09:45)
[2021-08-11] MEDS: DEXTROSE 5% 1,000 ML IV SCH (13:57)
[2021-08-11] MEDS: TAMSULOSIN 0.4 MG CAPSULE PO SCH (21:43)
[2021-08-11] MEDS: ATORVASTATIN 40 MG TABLET PO SCH (21:43)
[2021-08-12] MEDS: LACTULOSE 20 GM/30 ML UDCUP PO SCH ×4 (00:18→18:07)
[2021-08-12] MEDS: ALBUTEROL/IPRATROPIUM 3 ML NEB RESP TX SCH ×4 (01:15→19:10)
[2021-08-12 05:29] LABS: Basophils % 0.2 % (0.0-0.8); Eosinophils # 0.1 10*3/uL (0.0-0.87); Eosinophils % 3.5 % (0.00-10.9); Hematocrit 27.1 VOL% (42.0-52.0); Hemoglobin 8.1 GM/DL (14.0-18.0); Immature Granulocytes % 0.7 %; Immature Granulocytes Absolute 0.03 #; Lymphocytes # 0.6 10*3/uL (1.4-4.0); Lymphocytes % 14.9 % (21.2-54.2); Mean Corpuscular HGB Conc 29.9 GM/DL (32-36); Mean Corpuscular Volume 90.3 FL (87-102); Mean Platelet Volume 12.9 FL (9.6-12.0); Monocytes % 7.5 % (1.7-12.7); Neutrophils % 73.2 % (38.7-73.9); Red Cell Distribution Width 15.1 % (9.3-17.3)
[2021-08-12 05:36] LABS: Platelet Count 77 T/CUMM (130-400)
[2021-08-12 05:48] LABS: Alanine Aminotransferase < 9 U/L (16-61); Albumin 1.4 G/DL (3.4-5.0); Alkaline Phosphatase 121 U/L (45-117); Aspartate Amino Transferase 26 U/L (0-37); Blood Urea Nitrogen 49 MG/DL (7-18); Calcium 8.3 MG/DL (8.5-10.1); Carbon Dioxide 36 MMOL/L (21-32); Estimated Glom Filtration Rate 12 ML/MIN; Glucose 193 MG/DL (74-106); Osmolality,Calculated 307.6 MOS/KG (273-304); Potassium 3.3 MMOL/L (3.5-5.1); Sodium 146 MMOL/L (136-145); Total Protein 4.7 G/DL (6.4-8.2)
[2021-08-12 05:52] LABS: Hypochromia 1+; Microcytosis 1+; Ovalocytes Few; Platelet Estimate Decreased
[2021-08-12] MEDS ORDERED: POTASSIUM CHLORIDE 20 MEQ TABLET PO ONE (08:00)
[2021-08-12] MEDS: DOCUSATE SODIUM 100 MG CAPSULE PO SCH ×2 (08:45→20:33)
[2021-08-12] MEDS: ASPIRIN EC 81 MG TABLET PO SCH (08:45)
[2021-08-12] MEDS: CALCIUM (CARBONATE) 500 MG TABLET PO SCH ×3 (08:45→18:03)
[2021-08-12] MEDS: INSULIN LISPRO 100 UNIT/ML SUBCUT SCH ×4 (08:45→20:33)
[2021-08-12] MEDS: CITRIC ACID/SODIUM CITRATE 30 ML UDCUP PO SCH ×2 (08:46→20:58)
[2021-08-12] MEDS: DEXTROSE 5% 1,000 ML IV SCH (08:46)
[2021-08-12] MEDS: DOXAZOSIN 4 MG TABLET PO SCH ×2 (08:46→20:32)
[2021-08-12] MEDS: FERROUS SULFATE 325 MG TABLET PO SCH ×2 (08:46→20:32)
[2021-08-12] MEDS: DESITIN 4OZ/NYSTATIN 15 GRAM MIXTURE PASTE TOP SCH ×2 (08:46→20:37)
[2021-08-12] MEDS: carvediloL 3.125 MG TABLET PO SCH ×2 (08:46→20:32)
[2021-08-12] MEDS: CHOLECALCIFEROL 5,000 UNIT TABLET PO SCH (08:47)
[2021-08-12] MEDS: TAMSULOSIN 0.4 MG CAPSULE PO SCH (20:32)
[2021-08-12] MEDS: CYPROHEPTADINE 4 MG TABLET PO SCH (20:32)
[2021-08-12] MEDS: ATORVASTATIN 40 MG TABLET PO SCH (20:33)
[2021-08-12] MEDS: APIXABAN 2.5 MG TABLET PO SCH ×2 (20:40→22:21)
[2021-08-13] MEDS: ALBUTEROL/IPRATROPIUM 3 ML NEB RESP TX SCH ×4 (00:27→19:50)
[2021-08-13] MEDS: LACTULOSE 20 GM/30 ML UDCUP PO SCH ×4 (00:42→21:34)
[2021-08-13] MEDS: DEXTROSE 5% 1,000 ML IV SCH (00:42)
[2021-08-13 05:46] LABS: Basophils % 0.8 % (0.0-0.8); Eosinophils # 0.2 10*3/uL (0.0-0.87); Eosinophils % 3.8 % (0.00-10.9); Hemoglobin 8.5 GM/DL (14.0-18.0); Immature Granulocytes % 0.8 %; Immature Granulocytes Absolute 0.03 #; Lymphocytes # 0.8 10*3/uL (1.4-4.0); Lymphocytes % 20.8 % (21.2-54.2); Mean Corpuscular HGB Conc 30.4 GM/DL (32-36); Mean Corpuscular Volume 89.7 FL (87-102); Mean Platelet Volume 12.7 FL (9.6-12.0); Monocytes % 8.4 % (1.7-12.7); Neutrophils % 65.4 % (38.7-73.9); Platelet Count 96 T/CUMM (130-400); Red Blood Count 3.12 MC/CUMM (3.8-5.5); Red Cell Distribution Width 15.1 % (9.3-17.3); White Blood Count 3.9 T/CUMM (4-12)
[2021-08-13 06:03] LABS: Alanine Aminotransferase < 9 U/L (16-61); Albumin 1.4 G/DL (3.4-5.0); Alkaline Phosphatase 127 U/L (45-117); Aspartate Amino Transferase 23 U/L (0-37); Blood Urea Nitrogen 44 MG/DL (7-18); Calcium 8.7 MG/DL (8.5-10.1); Carbon Dioxide 33 MMOL/L (21-32); Estimated Glom Filtration Rate 12 ML/MIN; Glucose 124 MG/DL (74-106); Osmolality,Calculated 297.8 MOS/KG (273-304); Potassium 3.3 MMOL/L (3.5-5.1); Sodium 144 MMOL/L (136-145); Total Protein 4.8 G/DL (6.4-8.2)
[2021-08-13 06:11] LABS: Hypochromia 1+; Microcytosis 1+; Ovalocytes Few
[2021-08-13 06:12] LABS: Platelet Estimate Decreased
[2021-08-13] MEDS ORDERED: MAGNESIUM SULF RIDER 2 GM/50 ML PREMIX IV ONE (08:00)
[2021-08-13] MEDS ORDERED: POTASSIUM CHLORIDE 20 MEQ TABLET PO ONE (08:00)
[2021-08-13] MEDS ORDERED: DEXTROSE 10% 1,000 ML IV SCH (08:30)
[2021-08-13] MEDS: INSULIN LISPRO 100 UNIT/ML SUBCUT SCH ×4 (08:57→21:30)
[2021-08-13] MEDS: DOXAZOSIN 4 MG TABLET PO SCH ×2 (08:58→21:29)
[2021-08-13] MEDS: FERROUS SULFATE 325 MG TABLET PO SCH ×2 (08:59→21:28)
[2021-08-13] MEDS: DOCUSATE SODIUM 100 MG CAPSULE PO SCH ×2 (08:59→21:28)
[2021-08-13] MEDS: carvediloL 3.125 MG TABLET PO SCH ×2 (08:59→21:29)
[2021-08-13] MEDS: APIXABAN 2.5 MG TABLET PO SCH ×2 (08:59→21:29)
[2021-08-13] MEDS: CYPROHEPTADINE 4 MG TABLET PO SCH ×2 (08:59→21:29)
[2021-08-13] MEDS: CHOLECALCIFEROL 5,000 UNIT TABLET PO SCH (08:59)
[2021-08-13] MEDS: CALCIUM (CARBONATE) 500 MG TABLET PO SCH ×3 (08:59→17:53)
[2021-08-13] MEDS: CITRIC ACID/SODIUM CITRATE 30 ML UDCUP PO SCH ×2 (09:24→21:29)
[2021-08-13] MEDS: DESITIN 4OZ/NYSTATIN 15 GRAM MIXTURE PASTE TOP SCH ×2 (09:25→21:34)
[2021-08-13] MEDS: ASPIRIN EC 81 MG TABLET PO SCH (09:27)
[2021-08-13] MEDS: RIFAXIMIN 550 MG TABLET PO SCH ×2 (11:53→21:29)
[2021-08-13] MEDS: TAMSULOSIN 0.4 MG CAPSULE PO SCH (21:28)
[2021-08-13] MEDS: ATORVASTATIN 40 MG TABLET PO SCH (21:29)
[2021-08-14] MEDS: ALBUTEROL/IPRATROPIUM 3 ML NEB RESP TX SCH ×4 (01:08→19:32)
[2021-08-14] MEDS: LACTULOSE 20 GM/30 ML UDCUP PO SCH (06:02)
[2021-08-14 06:42] LABS: Basophils % 0.6 % (0.0-0.8); Eosinophils # 0.1 10*3/uL (0.0-0.87); Eosinophils % 3.3 % (0.00-10.9); Hematocrit 26.5 VOL% (42.0-52.0); Hemoglobin 7.9 GM/DL (14.0-18.0); Immature Granulocytes % 0.8 %; Immature Granulocytes Absolute 0.03 #; Lymphocytes # 0.8 10*3/uL (1.4-4.0); Lymphocytes % 22.8 % (21.2-54.2); Mean Corpuscular HGB Conc 29.8 GM/DL (32-36); Mean Corpuscular Volume 89.2 FL (87-102); Mean Platelet Volume 12.2 FL (9.6-12.0); Neutrophils % 62.5 % (38.7-73.9); Platelet Count 114 T/CUMM (130-400); Red Blood Count 2.97 MC/CUMM (3.8-5.5); Red Cell Distribution Width 14.9 % (9.3-17.3); White Blood Count 3.6 T/CUMM (4-12)
[2021-08-14 07:04] LABS: Albumin 1.3 G/DL (3.4-5.0); Calcium 8.3 MG/DL (8.5-10.1); Potassium 3.5 MMOL/L (3.5-5.1); Total Protein 4.7 G/DL (6.4-8.2)
[2021-08-14] MEDS ORDERED: POTASSIUM CHLORIDE 20 MEQ TABLET PO ONE (08:30)
[2021-08-14] MEDS ORDERED: EPOETIN ALFA-EPBX 10,000 UNIT/ML VIAL SUBCUT ONE (09:30)
[2021-08-14] MEDS: DOCUSATE SODIUM 100 MG CAPSULE PO SCH ×2 (10:14→20:45)
[2021-08-14] MEDS: CHOLECALCIFEROL 5,000 UNIT TABLET PO SCH (10:14)
[2021-08-14] MEDS: RIFAXIMIN 550 MG TABLET PO SCH ×2 (10:14→20:44)
[2021-08-14] MEDS: ASPIRIN EC 81 MG TABLET PO SCH (10:14)
[2021-08-14] MEDS: CALCIUM (CARBONATE) 500 MG TABLET PO SCH ×3 (10:14→16:48)
[2021-08-14] MEDS: DOXAZOSIN 4 MG TABLET PO SCH ×2 (10:14→20:44)
[2021-08-14] MEDS: CYPROHEPTADINE 4 MG TABLET PO SCH ×2 (10:14→20:44)
[2021-08-14] MEDS: CITRIC ACID/SODIUM CITRATE 30 ML UDCUP PO SCH (10:15)
[2021-08-14] MEDS: carvediloL 3.125 MG TABLET PO SCH ×2 (10:15→16:48)
[2021-08-14] MEDS: POLYETHYLENE GLYCOL POWDER 17 GM PACK PO SCH (10:15)
[2021-08-14] MEDS: APIXABAN 2.5 MG TABLET PO SCH ×2 (10:15→20:45)
[2021-08-14] MEDS: FERROUS SULFATE 325 MG TABLET PO SCH ×2 (10:15→20:45)
[2021-08-14] MEDS: DESITIN 4OZ/NYSTATIN 15 GRAM MIXTURE PASTE TOP SCH ×2 (10:16→20:48)
[2021-08-14] MEDS: INSULIN LISPRO 100 UNIT/ML SUBCUT SCH ×4 (11:32→20:51)
[2021-08-14] MEDS: TAMSULOSIN 0.4 MG CAPSULE PO SCH (20:45)
[2021-08-14] MEDS: ATORVASTATIN 40 MG TABLET PO SCH (20:45)
[2021-08-14] MEDS: ONDANSETRON 4 MG/2 ML VIAL IV PRN (22:58)
[2021-08-15] MEDS: ALBUTEROL/IPRATROPIUM 3 ML NEB RESP TX SCH ×4 (00:38→20:52)
[2021-08-15] MEDS: PROMETHAZINE INJ 12.5 MG in SODIUM CHLORIDE 0.9% 50 ML IV PRN ×2 (01:20→11:10)
[2021-08-15] MEDS: ONDANSETRON 4 MG/2 ML VIAL IV PRN (07:22)
[2021-08-15 08:18] LABS: Basophils % 0.5 % (0.0-0.8); Eosinophils # 0.1 10*3/uL (0.0-0.87); Eosinophils % 1.6 % (0.00-10.9); Hematocrit 30.5 VOL% (42.0-52.0); Immature Granulocytes % 0.9 %; Immature Granulocytes Absolute 0.04 #; Lymphocytes # 0.7 10*3/uL (1.4-4.0); Lymphocytes % 16.2 % (21.2-54.2); Mean Corpuscular HGB Conc 29.5 GM/DL (32-36); Mean Corpuscular Volume 90.5 FL (87-102); Mean Platelet Volume 12.2 FL (9.6-12.0); Monocytes % 6.6 % (1.7-12.7); Neutrophils % 74.2 % (38.7-73.9); Platelet Count 131 T/CUMM (130-400); Red Blood Count 3.37 MC/CUMM (3.8-5.5); Red Cell Distribution Width 14.9 % (9.3-17.3); White Blood Count 4.4 T/CUMM (4-12)
[2021-08-15 08:40] LABS: Albumin 1.7 G/DL (3.4-5.0); Bilirubin,Total 0.6 MG/DL (0.20-1.00); Osmolality,Calculated 299.1 MOS/KG (273-304); Potassium 4.3 MMOL/L (3.5-5.1); Total Protein 5.4 G/DL (6.4-8.2)
[2021-08-15] MEDS: DESITIN 4OZ/NYSTATIN 15 GRAM MIXTURE PASTE TOP SCH ×2 (09:30→21:15)
[2021-08-15] MEDS: SODIUM CHLORIDE 0.9% 500 ML IV SCH ×2 (11:41→16:32)
[2021-08-15] MEDS: carvediloL 3.125 MG TABLET PO SCH ×2 (11:45→17:53)
[2021-08-15] MEDS: INSULIN LISPRO 100 UNIT/ML SUBCUT SCH ×4 (11:45→21:15)
[2021-08-15] MEDS: DOXAZOSIN 4 MG TABLET PO SCH ×2 (11:45→21:06)
[2021-08-15] MEDS: ASPIRIN EC 81 MG TABLET PO SCH (11:45)
[2021-08-15] MEDS: CALCIUM (CARBONATE) 500 MG TABLET PO SCH ×3 (11:45→17:53)
[2021-08-15] MEDS: APIXABAN 2.5 MG TABLET PO SCH ×2 (11:46→21:06)
[2021-08-15] MEDS: POLYETHYLENE GLYCOL POWDER 17 GM PACK PO SCH (11:46)
[2021-08-15] MEDS: RIFAXIMIN 550 MG TABLET PO SCH ×2 (11:46→21:06)
[2021-08-15] MEDS: CHOLECALCIFEROL 5,000 UNIT TABLET PO SCH (11:46)
[2021-08-15] MEDS: FERROUS SULFATE 325 MG TABLET PO SCH ×2 (11:46→21:14)
[2021-08-15] MEDS: DOCUSATE SODIUM 100 MG CAPSULE PO SCH ×2 (11:46→21:14)
[2021-08-15] MEDS: CYPROHEPTADINE 4 MG TABLET PO SCH ×2 (11:46→21:15)
[2021-08-15 16:07] LABS: Hepatitis B Core IgM Quant 0.14 Index; Hepatitis B Surface Ag Quant < 0.10 Index; Hepatitis B Surface Ag Result Non-Reactive (NonReactive); Hepatitis C Virus Ab Quant 0.02 Index; Hepatitis C Virus Ab Result Non-Reactive (NonReactive)
[2021-08-15] MEDS: ATORVASTATIN 40 MG TABLET PO SCH (21:15)
[2021-08-15] MEDS: TAMSULOSIN 0.4 MG CAPSULE PO SCH (21:15)
[2021-08-16] MEDS: ALBUTEROL/IPRATROPIUM 3 ML NEB RESP TX SCH ×4 (00:22→19:07)
[2021-08-16 05:29] LABS: Basophils % 0.6 % (0.0-0.8); Eosinophils # 0.1 10*3/uL (0.0-0.87); Eosinophils % 2.7 % (0.00-10.9); Hematocrit 28.5 VOL% (42.0-52.0); Hemoglobin 8.4 GM/DL (14.0-18.0); Immature Granulocytes % 0.6 %; Immature Granulocytes Absolute 0.03 #; Lymphocytes # 0.8 10*3/uL (1.4-4.0); Lymphocytes % 15.6 % (21.2-54.2); Mean Corpuscular HGB Conc 29.5 GM/DL (32-36); Mean Corpuscular Volume 91.3 FL (87-102); Neutrophils % 73.5 % (38.7-73.9); Platelet Count 161 T/CUMM (130-400); Red Blood Count 3.12 MC/CUMM (3.8-5.5); Red Cell Distribution Width 14.7 % (9.3-17.3); White Blood Count 5.1 T/CUMM (4-12)
[2021-08-16 05:56] LABS: Albumin 1.7 G/DL (3.4-5.0); Bilirubin,Total 0.4 MG/DL (0.20-1.00); Calcium 8.5 MG/DL (8.5-10.1); Potassium 4.1 MMOL/L (3.5-5.1)
[2021-08-16] MEDS ORDERED: SODIUM CHLORIDE 0.9% 500 ML IV ONE (05:58)
[2021-08-16] MEDS ORDERED: POLYETHYLENE GLYCOL POWDER 17 GM PACK PO PRN (06:30)
[2021-08-16] MEDS ORDERED: INSULIN GLARGINE 100 UNIT/ML SUBCUT SCH (09:00)
[2021-08-16] MEDS: APIXABAN 2.5 MG TABLET PO SCH ×2 (09:16→22:17)
[2021-08-16] MEDS: ASPIRIN EC 81 MG TABLET PO SCH (09:16)
[2021-08-16] MEDS: RIFAXIMIN 550 MG TABLET PO SCH ×2 (09:16→22:17)
[2021-08-16] MEDS: POLYETHYLENE GLYCOL POWDER 17 GM PACK PO SCH (09:16)
[2021-08-16] MEDS: carvediloL 3.125 MG TABLET PO SCH ×2 (09:16→16:28)
[2021-08-16] MEDS: DESITIN 4OZ/NYSTATIN 15 GRAM MIXTURE PASTE TOP SCH ×2 (09:30→22:18)
[2021-08-16 09:57] LABS: % Iron Saturation 31.5 % (18-50); Ferritin 517.9 ng/mL (26-388)
[2021-08-16 09:59] LABS: Folate 4.57 NG/ML (5.38-24.0)
[2021-08-16] MEDS: INSULIN LISPRO 100 UNIT/ML SUBCUT SCH ×4 (14:15→23:05)
[2021-08-16] MEDS: CALCIUM (CARBONATE) 500 MG TABLET PO SCH ×2 (14:17→16:57)
[2021-08-16] MEDS: DOXAZOSIN 4 MG TABLET PO SCH ×2 (14:17→22:17)
[2021-08-16] MEDS: DOCUSATE SODIUM 100 MG CAPSULE PO SCH ×2 (14:18→22:18)
[2021-08-16] MEDS: FERROUS SULFATE 325 MG TABLET PO SCH ×2 (14:18→22:17)
[2021-08-16] MEDS: CYPROHEPTADINE 4 MG TABLET PO SCH ×2 (14:18→22:17)
[2021-08-16] MEDS: CHOLECALCIFEROL 5,000 UNIT TABLET PO SCH (14:18)
[2021-08-16] MEDS: TAMSULOSIN 0.4 MG CAPSULE PO SCH (22:18)
[2021-08-16] MEDS: ATORVASTATIN 40 MG TABLET PO SCH (22:18)
[2021-08-17] MEDS: ONDANSETRON 4 MG/2 ML VIAL IV PRN (01:31)
[2021-08-17 06:46] LABS: Basophils % 0.5 % (0.0-0.8); Eosinophils # 0.1 10*3/uL (0.0-0.87); Eosinophils % 3.7 % (0.00-10.9); Hematocrit 28.6 VOL% (42.0-52.0); Hemoglobin 8.4 GM/DL (14.0-18.0); Immature Granulocytes % 1.1 %; Immature Granulocytes Absolute 0.04 #; Lymphocytes # 0.9 10*3/uL (1.4-4.0); Mean Corpuscular HGB Conc 29.4 GM/DL (32-36); Mean Corpuscular Volume 90.8 FL (87-102); Mean Platelet Volume 11.7 FL (9.6-12.0); Monocytes % 8.7 % (1.7-12.7); Platelet Count 192 T/CUMM (130-400); Red Blood Count 3.15 MC/CUMM (3.8-5.5); Red Cell Distribution Width 14.7 % (9.3-17.3); White Blood Count 3.8 T/CUMM (4-12)
[2021-08-17 07:15] LABS: Albumin 1.6 G/DL (3.4-5.0); Bilirubin,Total 0.5 MG/DL (0.20-1.00); Calcium 8.1 MG/DL (8.5-10.1); Osmolality,Calculated 299.7 MOS/KG (273-304); Potassium 3.4 MMOL/L (3.5-5.1); Total Protein 4.9 G/DL (6.4-8.2)
[2021-08-17] MEDS: ALBUTEROL/IPRATROPIUM 3 ML NEB RESP TX SCH ×4 (07:40→19:15)
[2021-08-17] MEDS ORDERED: POTASSIUM CHLORIDE 20 MEQ TABLET PO ONE (07:48)
[2021-08-17] MEDS: POLYETHYLENE GLYCOL POWDER 17 GM PACK PO SCH (09:45)
[2021-08-17] MEDS: RIFAXIMIN 550 MG TABLET PO SCH ×2 (09:45→21:27)
[2021-08-17] MEDS: DESITIN 4OZ/NYSTATIN 15 GRAM MIXTURE PASTE TOP SCH ×2 (09:45→21:28)
[2021-08-17] MEDS: carvediloL 3.125 MG TABLET PO SCH ×2 (09:45→16:41)
[2021-08-17] MEDS: APIXABAN 2.5 MG TABLET PO SCH ×2 (09:45→21:27)
[2021-08-17] MEDS: DOXAZOSIN 4 MG TABLET PO SCH ×2 (09:47→21:27)
[2021-08-17] MEDS: DOCUSATE SODIUM 100 MG CAPSULE PO SCH ×2 (09:51→21:27)
[2021-08-17] MEDS: ASPIRIN EC 81 MG TABLET PO SCH (09:51)
[2021-08-17] MEDS: FOLIC ACID 1 MG TABLET PO SCH (09:52)
[2021-08-17] MEDS: INSULIN LISPRO 100 UNIT/ML SUBCUT SCH ×4 (11:26→21:38)
[2021-08-17] MEDS: CALCIUM (CARBONATE) 500 MG TABLET PO SCH ×3 (11:27→16:59)
[2021-08-17] MEDS: FERROUS SULFATE 325 MG TABLET PO SCH ×2 (11:27→21:27)
[2021-08-17] MEDS: CHOLECALCIFEROL 5,000 UNIT TABLET PO SCH (11:28)
[2021-08-17] MEDS: CYPROHEPTADINE 4 MG TABLET PO SCH ×2 (11:28→21:27)
[2021-08-17] MEDS: TAMSULOSIN 0.4 MG CAPSULE PO SCH (21:27)
[2021-08-17] MEDS: ATORVASTATIN 40 MG TABLET PO SCH (21:27)
[2021-08-18] MEDS: ALBUTEROL/IPRATROPIUM 3 ML NEB RESP TX SCH ×4 (01:05→19:46)
[2021-08-18 06:37] LABS: Basophils % 0.8 % (0.0-0.8); Eosinophils # 0.1 10*3/uL (0.0-0.87); Eosinophils % 3.8 % (0.00-10.9); Hematocrit 30.7 VOL% (42.0-52.0); Hemoglobin 9.1 GM/DL (14.0-18.0); Immature Granulocytes % 1.6 %; Immature Granulocytes Absolute 0.06 #; Lymphocytes # 0.9 10*3/uL (1.4-4.0); Lymphocytes % 25.1 % (21.2-54.2); Mean Corpuscular HGB Conc 29.6 GM/DL (32-36); Mean Corpuscular Volume 91.9 FL (87-102); Mean Platelet Volume 11.8 FL (9.6-12.0); Monocytes % 9.7 % (1.7-12.7); Platelet Count 213 T/CUMM (130-400); Red Blood Count 3.34 MC/CUMM (3.8-5.5); Red Cell Distribution Width 14.6 % (9.3-17.3); White Blood Count 3.7 T/CUMM (4-12)
[2021-08-18 06:53] LABS: Albumin 1.8 G/DL (3.4-5.0); Bilirubin,Total 0.5 MG/DL (0.20-1.00); Calcium 8.5 MG/DL (8.5-10.1); Osmolality,Calculated 299.8 MOS/KG (273-304); Potassium 3.5 MMOL/L (3.5-5.1); Total Protein 5.2 G/DL (6.4-8.2)
[2021-08-18] MEDS: DESITIN 4OZ/NYSTATIN 15 GRAM MIXTURE PASTE TOP SCH (09:24)
[2021-08-18] MEDS: POLYETHYLENE GLYCOL POWDER 17 GM PACK PO SCH (09:24)
[2021-08-18] MEDS: ASPIRIN EC 81 MG TABLET PO SCH (09:25)
[2021-08-18] MEDS: carvediloL 3.125 MG TABLET PO SCH ×2 (09:25→16:05)
[2021-08-18] MEDS: FOLIC ACID 1 MG TABLET PO SCH (09:25)
[2021-08-18] MEDS: RIFAXIMIN 550 MG TABLET PO SCH (09:25)
[2021-08-18] MEDS: APIXABAN 2.5 MG TABLET PO SCH (09:25)
[2021-08-18] MEDS ORDERED: LACTULOSE 20 GM/30 ML UDCUP PO SCH (09:30)
[2021-08-18] MEDS: INSULIN LISPRO 100 UNIT/ML SUBCUT SCH ×3 (09:30→16:05)
[2021-08-18] MEDS: CYPROHEPTADINE 4 MG TABLET PO SCH (09:31)
[2021-08-18] MEDS: CALCIUM (CARBONATE) 500 MG TABLET PO SCH ×3 (09:31→16:06)
[2021-08-18] MEDS: DOXAZOSIN 4 MG TABLET PO SCH (09:31)
[2021-08-18] MEDS: FERROUS SULFATE 325 MG TABLET PO SCH (09:31)
[2021-08-18] MEDS: CHOLECALCIFEROL 5,000 UNIT TABLET PO SCH (09:31)
[2021-08-18] MEDS: DOCUSATE SODIUM 100 MG CAPSULE PO SCH (09:31)
[2021-08-18 17:09] VITALS: BP 160/63
== END 2021-08-18 19:44 | disposition home health service (06) | DRG 40 ==
LOC: N.3E 09:50 → N.ED 09:50 → SUATTDRO 13:21 → N.3E 16:50 → SUATTDRO 08-05 09:07
PROVIDERS: ADMIT Phlebology; ATTEND Emergency Medicine

== ENCOUNTER 2021-10-02 04:23 | Inpatient (IN) ==
[2021-10-02] MEDS ORDERED: ONDANSETRON 4 MG/2 ML VIAL IV STA (04:44)
[2021-10-02] MEDS ORDERED: DEXTROSE 50% 25 GM/50 ML SYRINGE IV ONE (04:54)
[2021-10-02] MEDS ORDERED: DEXTROSE 50% 25 GM/50 ML VIAL IV STA ×2 (04:58→05:49)
[2021-10-02 05:19] LABS: Basophils # 0.1 10*3/uL (0.0-0.2); Basophils % 0.4 % (0.0-0.8); Eosinophils # 0.1 10*3/uL (0.0-0.87); Eosinophils % 0.3 % (0.00-10.9); Hemoglobin 11.7 GM/DL (14.0-18.0); Immature Granulocytes Absolute 0.32 #; Lymphocytes # 0.9 10*3/uL (1.4-4.0); Lymphocytes % 5.6 % (21.2-54.2); Mean Corpuscular HGB Conc 31.6 GM/DL (32-36); Mean Corpuscular Volume 87.3 FL (87-102); Monocytes # 0.9 10*3/uL (0.11-0.8); Monocytes % 5.3 % (1.7-12.7); NRBC # 0.03 10*3/uL; Neutrophils % 86.4 % (38.7-73.9); Platelet Count 293 T/CUMM (130-400); Red Blood Count 4.24 MC/CUMM (3.8-5.5); Red Cell Distribution Width 14.1 % (9.3-17.3); White Blood Count 16.3 T/CUMM (4-12)
[2021-10-02 05:38] LABS: Albumin 1.8 G/DL (3.4-5.0); Bilirubin,Total 0.9 MG/DL (0.20-1.00); Calcium 7.7 MG/DL (8.5-10.1)
[2021-10-02] MEDS ORDERED: PIPERACILLIN/TAZOBACTAM 2,250 MG in SODIUM CHLORIDE 0.9% 100 ML IV STA (05:39)
[2021-10-02 05:40] LABS: Potassium 2.1 MMOL/L (3.5-5.1)
[2021-10-02] MEDS ORDERED: PIPERACILLIN/TAZOBACTAM 3,375 MG in SODIUM CHLORIDE 0.9% 100 ML IV STA (05:44)
[2021-10-02] MEDS ORDERED: POTASSIUM CHLORIDE RIDER 20 MEQ/100 ML PREMIX IV STA (05:47)
[2021-10-02] MEDS ORDERED: MAGNESIUM SULF RIDER 2 GM/50 ML PREMIX IV STA (05:47)
[2021-10-02] MEDS: POTASSIUM CHLORIDE RIDER 10 MEQ/100 ML PREMIX IV SCH ×2 (06:09→07:35)
[2021-10-02] MEDS ORDERED: SODIUM CHLORIDE 0.9% 500 ML IV STA (06:12)
[2021-10-02] MEDS ORDERED: DEXTROSE 10% 25 GM/250 ML BAG IV PRN (06:12)
[2021-10-02] MEDS ORDERED: GLUCAGON 1 MG VIAL IM PRN (06:12)
[2021-10-02] MEDS ORDERED: SODIUM CHLORIDE 0.9% 1,000 ML IV ONE (06:51)
[2021-10-02] MEDS ORDERED: VANCOMYCIN INJ 1,500 MG in SODIUM CHLORIDE 0.9% 500 ML IV ONE (06:52)
[2021-10-02] MEDS ORDERED: VANCOMYCIN INJ 2,500 MG in SODIUM CHLORIDE 0.9% 500 ML IV ONE (09:00)
[2021-10-02] MEDS: PANTOPRAZOLE 40 MG VIAL IV SCH ×2 (10:00→20:52)
[2021-10-02] MEDS: PIPERACILLIN/TAZOBACTAM 3,375 MG in SODIUM CHLORIDE 0.9% 100 ML IV SCH (14:10)
[2021-10-02] MEDS: HEPARIN 5,000 UNIT/1 ML VIAL SUBCUT SCH (20:51)
[2021-10-03] MEDS: PIPERACILLIN/TAZOBACTAM 3,375 MG in SODIUM CHLORIDE 0.9% 100 ML IV SCH ×2 (02:00→16:14)
[2021-10-03 06:33] LABS: Basophils # 0.1 10*3/uL (0.0-0.2); Basophils % 0.4 % (0.0-0.8); Eosinophils # 0.1 10*3/uL (0.0-0.87); Eosinophils % 0.7 % (0.00-10.9); Hematocrit 34.5 VOL% (42.0-52.0); Hemoglobin 10.8 GM/DL (14.0-18.0); Immature Granulocytes % 2.6 %; Immature Granulocytes Absolute 0.31 #; Lymphocytes % 7.9 % (21.2-54.2); Mean Corpuscular HGB Conc 31.3 GM/DL (32-36); Mean Corpuscular Volume 86.9 FL (87-102); Monocytes # 0.8 10*3/uL (0.11-0.8); Monocytes % 6.4 % (1.7-12.7); Platelet Count 150 T/CUMM (130-400); Red Blood Count 3.97 MC/CUMM (3.8-5.5); Red Cell Distribution Width 14.4 % (9.3-17.3); White Blood Count 12.1 T/CUMM (4-12)
[2021-10-03 06:54] LABS: Calcium 7.2 MG/DL (8.5-10.1); Osmolality,Calculated 285.3 MOS/KG (273-304)
[2021-10-03 07:03] LABS: Potassium 2.1 MMOL/L (3.5-5.1)
[2021-10-03] MEDS ORDERED: SODIUM CHLOR 0.9% KCL 40 MEQ 40 MEQ/1,000 ML BAG IV SCH (08:00)
[2021-10-03] MEDS ORDERED: POTASSIUM CHLORIDE 20 MEQ TABLET PO SCH (09:00)
[2021-10-03] MEDS: PANTOPRAZOLE 40 MG VIAL IV SCH ×2 (09:01→22:27)
[2021-10-03] MEDS: HEPARIN 5,000 UNIT/1 ML VIAL SUBCUT SCH ×2 (09:06→22:27)
[2021-10-03] MEDS ORDERED: VANCOMYCIN INJ 2,500 MG in SODIUM CHLORIDE 0.9% 500 ML IV PRN (09:27)
[2021-10-03] MEDS: POTASSIUM CHLORIDE RIDER 10 MEQ/100 ML PREMIX IV PRN ×2 (12:01→23:21)
[2021-10-04] MEDS: POTASSIUM CHLORIDE RIDER 10 MEQ/100 ML PREMIX IV PRN ×6 (00:30→21:10)
[2021-10-04] MEDS ORDERED: ACETAMINOPHEN 325 MG TABLET PO PRN (01:12)
[2021-10-04] MEDS: PIPERACILLIN/TAZOBACTAM 3,375 MG in SODIUM CHLORIDE 0.9% 100 ML IV SCH ×2 (03:13→19:02)
[2021-10-04 05:46] LABS: Calcium 7.1 MG/DL (8.5-10.1); Osmolality,Calculated 286.4 MOS/KG (273-304); Potassium 2.6 MMOL/L (3.5-5.1)
[2021-10-04] MEDS ORDERED: POTASSIUM CHLORIDE 20 MEQ TABLET PO ONE ×2 (07:40→14:30)
[2021-10-04] MEDS: HEPARIN 5,000 UNIT/1 ML VIAL SUBCUT SCH ×2 (09:03→21:06)
[2021-10-04] MEDS: PANTOPRAZOLE 40 MG VIAL IV SCH ×2 (09:04→21:00)
[2021-10-04] MEDS: MAGNESIUM OXIDE 400 MG TABLET PO SCH (09:05)
[2021-10-04] MEDS: POTASSIUM CHLORIDE 20 MEQ TABLET PO SCH ×3 (09:05→21:05)
[2021-10-04] MEDS ORDERED: DEXTROSE 10% 250 ML BAG IV PRN (13:30)
[2021-10-04] MEDS: POLYETHYLENE GLYCOL POWDER 17 GM PACK PO SCH (21:05)
[2021-10-05] MEDS: POTASSIUM CHLORIDE RIDER 10 MEQ/100 ML PREMIX IV PRN ×2 (02:50→04:32)
[2021-10-05] MEDS: PIPERACILLIN/TAZOBACTAM 3,375 MG in SODIUM CHLORIDE 0.9% 100 ML IV SCH (05:51)
[2021-10-05 06:06] LABS: Calcium 7.2 MG/DL (8.5-10.1); Osmolality,Calculated 285.5 MOS/KG (273-304); Potassium 3.2 MMOL/L (3.5-5.1)
[2021-10-05] MEDS: MAGNESIUM OXIDE 400 MG TABLET PO SCH (09:44)
[2021-10-05] MEDS: POTASSIUM CHLORIDE 20 MEQ TABLET PO SCH (09:44)
[2021-10-05] MEDS: PANTOPRAZOLE 40 MG VIAL IV SCH (09:44)
[2021-10-05] MEDS: HEPARIN 5,000 UNIT/1 ML VIAL SUBCUT SCH (09:44)
[2021-10-05] MEDS: POLYETHYLENE GLYCOL POWDER 17 GM PACK PO SCH (11:04)
[2021-10-05 12:28] VITALS: BP 169/89
== END 2021-10-05 14:11 | disposition home health service (06) | DRG 391 ==
LOC: EDBD → EDUNIT# → N.ED 04:23 → N.EDINP 06:12 → N.TELEN 13:15
PROVIDERS: ADMIT Internal Medicine; ATTEND Internal Medicine

== ENCOUNTER 2021-10-07 13:32 | Observation (INO) ==
[2021-10-07] MEDS ORDERED: ONDANSETRON 4 MG/2 ML VIAL IV STA (14:22)
[2021-10-07 15:42] LABS: Basophils # 0.1 10*3/uL (0.0-0.2); Basophils % 0.5 % (0.0-0.8); Eosinophils % 0.4 % (0.00-10.9); Hematocrit 30.3 VOL% (42.0-52.0); Hemoglobin 9.4 GM/DL (14.0-18.0); Immature Granulocytes Absolute 0.32 #; Lymphocytes % 9.5 % (21.2-54.2); Mean Corpuscular Volume 86.6 FL (87-102); Mean Platelet Volume 10.4 FL (9.6-12.0); Monocytes # 0.5 10*3/uL (0.11-0.8); NRBC # 0.03 10*3/uL; Neutrophils % 81.6 % (38.7-73.9); Platelet Count 238 T/CUMM (130-400); Red Cell Distribution Width 14.8 % (9.3-17.3); White Blood Count 10.5 T/CUMM (4-12)
[2021-10-07 16:00] LABS: Albumin 1.6 G/DL (3.4-5.0); Bilirubin,Total 0.8 MG/DL (0.20-1.00); Calcium 7.7 MG/DL (8.5-10.1); Osmolality,Calculated 283.7 MOS/KG (273-304); Potassium 2.9 MMOL/L (3.5-5.1); Total Protein 4.6 G/DL (6.4-8.2)
[2021-10-07] MEDS ORDERED: GLUCAGON 1 MG VIAL IM PRN (17:42)
[2021-10-07] MEDS ORDERED: ONDANSETRON 4 MG/2 ML VIAL IV PRN (17:42)
[2021-10-07] MEDS ORDERED: hydrALAZINE 20 MG/1 ML VIAL IV PRN (17:42)
[2021-10-07] MEDS ORDERED: DEXTROSE 10% 250 ML BAG IV PRN (17:51)
[2021-10-07 18:10] LABS: Risk Ratio 5.33; Thyroid Stimulating Hormone 0.795 uIU/ml (0.358-3.74); VLDL Cholesterol 27.8 MG/DL
[2021-10-07] MEDS ORDERED: POTASSIUM CHLORIDE 20 MEQ TABLET PO ONE (18:19)
[2021-10-07] MEDS: METOCLOPRAMIDE 10 MG/2 ML VIAL IV SCH (18:48)
[2021-10-07] MEDS: INSULIN LISPRO 100 UNIT/ML SUBCUT SCH (18:48)
[2021-10-07] MEDS: APIXABAN 5 MG TABLET PO SCH (21:50)
[2021-10-07] MEDS: DOXAZOSIN 4 MG TABLET PO SCH (21:50)
[2021-10-07] MEDS: carvediloL 12.5 MG TABLET PO SCH (21:50)
[2021-10-07] MEDS: TAMSULOSIN 0.4 MG CAPSULE PO SCH (21:50)
[2021-10-07] MEDS: ATORVASTATIN 40 MG TABLET PO SCH (21:50)
[2021-10-07] MEDS: HEPARIN 5,000 UNIT/1 ML VIAL SUBCUT SCH (21:55)
[2021-10-07] MEDS ORDERED: PROMETHAZINE 25 MG/1 ML VIAL IM PRN (22:33)
[2021-10-08] MEDS: INSULIN LISPRO 100 UNIT/ML SUBCUT SCH ×4 (00:15→21:30)
[2021-10-08] MEDS: METOCLOPRAMIDE 10 MG/2 ML VIAL IV SCH ×4 (00:55→19:08)
[2021-10-08 01:49] LABS: Bacteria,Urine Occasional /HPF (Few); Hyaline Casts,Urine 3 /LPF (0-3); Mucus,Urine Occasional /LPF (Occasional); RBC,Urine <1 /HPF (0-4); Squamous Epithelial Cell,Urine Occasional /HPF (0-10)
[2021-10-08 01:52] LABS: Bilirubin,Urine Negative (Negative); Blood, Urine Small mg/dL (Negative); Glucose,Urine (UA) Negative (Negative); Ketones,Urine Negative (Negative); Nitrite,Urine Negative (Negative); Protein,Urine >=300 mg/dL (Negative); Urine Appearance Clear (Clear); Urine Color Yellow (Yellow); Urine Specific Gravity >= 1.030 (1.001-1.035); Urine Urobilinogen 0.2 eU/dL (<2.0); Urine pH 5.5 (4.5-8.0)
[2021-10-08 05:33] LABS: Basophils # 0.1 10*3/uL (0.0-0.2); Basophils % 0.5 % (0.0-0.8); Eosinophils # 0.1 10*3/uL (0.0-0.87); Eosinophils % 0.5 % (0.00-10.9); Hemoglobin 9.9 GM/DL (14.0-18.0); Immature Granulocytes % 3.5 %; Immature Granulocytes Absolute 0.39 #; Lymphocytes # 1.3 10*3/uL (1.4-4.0); Lymphocytes % 11.8 % (21.2-54.2); Mean Corpuscular HGB Conc 30.9 GM/DL (32-36); Mean Corpuscular Volume 87.4 FL (87-102); Monocytes # 0.7 10*3/uL (0.11-0.8); NRBC # 0.03 10*3/uL; Neutrophils % 77.7 % (38.7-73.9); Platelet Count 265 T/CUMM (130-400); Red Blood Count 3.66 MC/CUMM (3.8-5.5); Red Cell Distribution Width 14.9 % (9.3-17.3); White Blood Count 11.1 T/CUMM (4-12)
[2021-10-08 06:03] LABS: Calcium 7.5 MG/DL (8.5-10.1); Osmolality,Calculated 289.3 MOS/KG (273-304); Potassium 3.1 MMOL/L (3.5-5.1)
[2021-10-08] MEDS: CALCIUM (CARBONATE) 500 MG TABLET PO SCH ×3 (08:51→18:48)
[2021-10-08] MEDS: DOXAZOSIN 4 MG TABLET PO SCH ×3 (08:51→21:38)
[2021-10-08] MEDS: ASPIRIN EC 81 MG TABLET PO SCH (08:51)
[2021-10-08] MEDS: APIXABAN 5 MG TABLET PO SCH ×3 (08:51→21:38)
[2021-10-08] MEDS: INSULIN GLARGINE 100 UNIT/ML SUBCUT SCH (08:51)
[2021-10-08] MEDS: carvediloL 12.5 MG TABLET PO SCH ×2 (08:51→18:01)
[2021-10-08] MEDS: CHOLECALCIFEROL 5,000 UNIT TABLET PO SCH (08:52)
[2021-10-08] MEDS: HEPARIN 5,000 UNIT/1 ML VIAL SUBCUT SCH ×2 (08:52→21:39)
[2021-10-08] MEDS: amLODIPine 5 MG TABLET PO SCH (08:52)
[2021-10-08] MEDS ORDERED: ZINC OXIDE PASTE 113 GM TUBE TOP PRN (13:32)
[2021-10-08] MEDS: POTASSIUM CHLORIDE 20 MEQ/10 ML VIAL INTRAPERIT SCH ×2 (14:51→21:40)
[2021-10-08] MEDS: ATORVASTATIN 40 MG TABLET PO SCH ×2 (21:38)
[2021-10-08] MEDS: PANTOPRAZOLE 40 MG VIAL IV SCH (21:38)
[2021-10-08] MEDS: TAMSULOSIN 0.4 MG CAPSULE PO SCH ×2 (21:38)
[2021-10-09] MEDS: INSULIN LISPRO 100 UNIT/ML SUBCUT SCH ×5 (00:22→23:43)
[2021-10-09] MEDS: POTASSIUM CHLORIDE 20 MEQ/10 ML VIAL INTRAPERIT SCH ×4 (03:44→21:04)
[2021-10-09 05:30] LABS: Basophils % 0.4 % (0.0-0.8); Eosinophils # 0.1 10*3/uL (0.0-0.87); Eosinophils % 0.9 % (0.00-10.9); Hematocrit 26.3 VOL% (42.0-52.0); Hemoglobin 8.2 GM/DL (14.0-18.0); Immature Granulocytes % 3.2 %; Immature Granulocytes Absolute 0.24 #; Lymphocytes % 13.9 % (21.2-54.2); Mean Corpuscular HGB Conc 31.2 GM/DL (32-36); Mean Corpuscular Volume 86.8 FL (87-102); Monocytes # 0.5 10*3/uL (0.11-0.8); Monocytes % 6.2 % (1.7-12.7); NRBC # 0.04 10*3/uL; Neutrophils % 75.4 % (38.7-73.9); Platelet Count 188 T/CUMM (130-400); Red Blood Count 3.03 MC/CUMM (3.8-5.5); White Blood Count 7.5 T/CUMM (4-12)
[2021-10-09 05:43] LABS: Calcium 7.7 MG/DL (8.5-10.1); Potassium 2.7 MMOL/L (3.5-5.1)
[2021-10-09] MEDS: APIXABAN 5 MG TABLET PO SCH ×2 (09:43→21:04)
[2021-10-09] MEDS: CALCIUM (CARBONATE) 500 MG TABLET PO SCH ×3 (09:43→16:52)
[2021-10-09] MEDS: amLODIPine 5 MG TABLET PO SCH (09:43)
[2021-10-09] MEDS: DOXAZOSIN 4 MG TABLET PO SCH ×2 (09:44→21:04)
[2021-10-09] MEDS: carvediloL 12.5 MG TABLET PO SCH ×2 (09:44→16:52)
[2021-10-09] MEDS: ASPIRIN EC 81 MG TABLET PO SCH (09:44)
[2021-10-09] MEDS: PANTOPRAZOLE 40 MG VIAL IV SCH (09:45)
[2021-10-09] MEDS: CHOLECALCIFEROL 5,000 UNIT TABLET PO SCH (09:45)
[2021-10-09] MEDS: HEPARIN 5,000 UNIT/1 ML VIAL SUBCUT SCH ×2 (09:46→21:08)
[2021-10-09] MEDS: INSULIN GLARGINE 100 UNIT/ML SUBCUT SCH (12:36)
[2021-10-09] MEDS ORDERED: POTASSIUM CHLORIDE 20 MEQ TABLET PO ONE (17:00)
[2021-10-09] MEDS: TAMSULOSIN 0.4 MG CAPSULE PO SCH (21:04)
[2021-10-09] MEDS: PANTOPRAZOLE 40 MG TABLET PO SCH (21:04)
[2021-10-09] MEDS: ATORVASTATIN 40 MG TABLET PO SCH (21:04)
[2021-10-10] MEDS: POTASSIUM CHLORIDE 20 MEQ/10 ML VIAL INTRAPERIT SCH ×2 (03:16→09:07)
[2021-10-10] MEDS: INSULIN LISPRO 100 UNIT/ML SUBCUT SCH ×2 (06:12→13:12)
[2021-10-10 08:46] LABS: Calcium 7.9 MG/DL (8.5-10.1); Osmolality,Calculated 286.3 MOS/KG (273-304); Potassium 2.9 MMOL/L (3.5-5.1)
[2021-10-10] MEDS: INSULIN GLARGINE 100 UNIT/ML SUBCUT SCH (09:05)
[2021-10-10] MEDS: ASPIRIN EC 81 MG TABLET PO SCH (09:05)
[2021-10-10] MEDS: PANTOPRAZOLE 40 MG TABLET PO SCH (09:05)
[2021-10-10] MEDS: amLODIPine 5 MG TABLET PO SCH (09:06)
[2021-10-10] MEDS: CALCIUM (CARBONATE) 500 MG TABLET PO SCH ×2 (09:06→13:12)
[2021-10-10] MEDS: HEPARIN 5,000 UNIT/1 ML VIAL SUBCUT SCH (09:06)
[2021-10-10] MEDS: CHOLECALCIFEROL 5,000 UNIT TABLET PO SCH (09:06)
[2021-10-10] MEDS: APIXABAN 5 MG TABLET PO SCH (09:06)
[2021-10-10] MEDS: carvediloL 12.5 MG TABLET PO SCH (09:06)
[2021-10-10] MEDS: DOXAZOSIN 4 MG TABLET PO SCH (09:06)
[2021-10-10 12:13] VITALS: BP 125/68
[2021-10-10 23:41] LABS: CDT Result Negative (Negative); CDT Specimen Source STOOL
== END 2021-10-10 13:18 | disposition home health service (06) ==
LOC: EDUNIT# → EDBD → N.ED 13:32 → N.EDINP 13:32 → N.5E 19:57
PROVIDERS: ADMIT Internal Medicine; ATTEND Internal Medicine

== ENCOUNTER 2021-10-26 10:30 | Inpatient (IN) ==
[2021-10-26 11:29] LABS: Basophils % 0.1 % (0.0-0.8); Eosinophils # 0.1 10*3/uL (0.0-0.87); Eosinophils % 1.1 % (0.00-10.9); Hematocrit 27.3 VOL% (42.0-52.0); Hemoglobin 8.7 GM/DL (14.0-18.0); Immature Granulocytes % 2.3 %; Immature Granulocytes Absolute 0.23 #; Lymphocytes % 9.5 % (21.2-54.2); Mean Corpuscular HGB Conc 31.9 GM/DL (32-36); Mean Corpuscular Volume 85.3 FL (87-102); Mean Platelet Volume 10.6 FL (9.6-12.0); Monocytes # 0.4 10*3/uL (0.11-0.8); Monocytes % 3.8 % (1.7-12.7); NRBC # 0.03 10*3/uL; Neutrophils % 83.2 % (38.7-73.9); Platelet Count 157 T/CUMM (130-400); Red Cell Distribution Width 14.7 % (9.3-17.3); White Blood Count 10.1 T/CUMM (4-12)
[2021-10-26 11:40] LABS: PT Patient Result 11.4 SECS (10.5-12.0)
[2021-10-26 13:31] LABS: Albumin 1.5 G/DL (3.4-5.0); Bilirubin,Total 0.7 MG/DL (0.20-1.00); Calcium 6.9 MG/DL (8.5-10.1); Osmolality,Calculated 282.5 MOS/KG (273-304); Total Protein 4.1 G/DL (6.4-8.2)
[2021-10-26 13:32] LABS: Potassium 2.1 MMOL/L (3.5-5.1)
[2021-10-26] MEDS ORDERED: GLUCAGON 1 MG VIAL IM PRN (14:03)
[2021-10-26] MEDS: POTASSIUM CHLORIDE RIDER 10 MEQ/100 ML PREMIX IV PRN ×6 (14:04→21:00)
[2021-10-26] MEDS ORDERED: ACETAMINOPHEN 325 MG TABLET PO PRN (14:04)
[2021-10-26] MEDS ORDERED: POLYETHYLENE GLYCOL POWDER 17 GM PACK PO PRN (14:09)
[2021-10-26] MEDS ORDERED: DEXTROSE 10% 250 ML BAG IV PRN (14:09)
[2021-10-26 14:57] LABS: Arterial Base Excess iSTAT 8 MMOL/L (-2.5-2.5); Arterial Bicarbonate iSTAT 32.1 MMOL/L (20-26); Arterial O2 Saturation iSTAT 97 % (95-100); Arterial PCO2 iSTAT 41 MM HG (35-48); Arterial PO2 iSTAT 87 MM HG (80-95); Arterial Total CO2 iSTAT 33 MMO/L (23-27)
[2021-10-26] MEDS: RIFAXIMIN 550 MG TABLET PO SCH ×2 (17:18→20:58)
[2021-10-26] MEDS: SEVELAMER CARBONATE 800 MG TABLET PO SCH (17:18)
[2021-10-26] MEDS: LACTULOSE 20 GM/30 ML UDCUP PO SCH ×2 (17:18→20:58)
[2021-10-26] MEDS: INSULIN LISPRO 100 UNIT/ML SUBCUT SCH ×2 (17:19→20:59)
[2021-10-26] MEDS: CALCIUM (CARBONATE) 500 MG TABLET PO SCH (17:19)
[2021-10-26 20:39] LABS: Hematocrit 29.9 VOL% (42.0-52.0); Hemoglobin 9.1 GM/DL (14.0-18.0)
[2021-10-26] MEDS: TAMSULOSIN 0.4 MG CAPSULE PO SCH (20:58)
[2021-10-26] MEDS: MAGNESIUM OXIDE 400 MG TABLET PO SCH (20:58)
[2021-10-26] MEDS: PANTOPRAZOLE 40 MG TABLET PO SCH (20:58)
[2021-10-26] MEDS: carvediloL 12.5 MG TABLET PO SCH (20:58)
[2021-10-26] MEDS: ATORVASTATIN 40 MG TABLET PO SCH (20:58)
[2021-10-26] MEDS: POTASSIUM CHLORIDE 20 MEQ/10 ML VIAL INTRAPERIT SCH (23:48)
[2021-10-27 05:45] LABS: Basophils % 0.1 % (0.0-0.8); Eosinophils # 0.1 10*3/uL (0.0-0.87); Eosinophils % 0.7 % (0.00-10.9); Hematocrit 23.7 VOL% (42.0-52.0); Hematocrit 24.2 VOL% (42.0-52.0); Hemoglobin 7.8 GM/DL (14.0-18.0); Immature Granulocytes % 2.1 %; Immature Granulocytes Absolute 0.17 #; Lymphocytes # 0.9 10*3/uL (1.4-4.0); Lymphocytes % 10.8 % (21.2-54.2); Mean Corpuscular HGB Conc 32.9 GM/DL (32-36); Mean Platelet Volume 10.8 FL (9.6-12.0); Monocytes # 0.4 10*3/uL (0.11-0.8); Monocytes % 4.8 % (1.7-12.7); NRBC # 0.03 10*3/uL; Neutrophils % 81.5 % (38.7-73.9); Platelet Count 114 T/CUMM (130-400); Red Blood Count 2.89 MC/CUMM (3.8-5.5); Red Cell Distribution Width 14.6 % (9.3-17.3); White Blood Count 8.1 T/CUMM (4-12)
[2021-10-27] MEDS: POTASSIUM CHLORIDE 20 MEQ/10 ML VIAL INTRAPERIT SCH (05:52)
[2021-10-27 06:02] LABS: Albumin 1.2 G/DL (3.4-5.0); Bilirubin,Total 0.6 MG/DL (0.20-1.00); Calcium 6.9 MG/DL (8.5-10.1); Osmolality,Calculated 286.3 MOS/KG (273-304); Phosphorous 1.8 MG/DL (2.5-4.9); Risk Ratio 2.83; Total Protein 3.6 G/DL (6.4-8.2); VLDL Cholesterol 19.6 MG/DL
[2021-10-27 06:04] LABS: Potassium 2.2 MMOL/L (3.5-5.1)
[2021-10-27 06:12] LABS: Platelet Estimate Adequate
[2021-10-27] MEDS: POTASSIUM CHLORIDE RIDER 10 MEQ/100 ML PREMIX IV PRN ×6 (06:40→15:08)
[2021-10-27] MEDS ORDERED: INSULIN GLARGINE 100 UNIT/ML SUBCUT SCH (09:00)
[2021-10-27] MEDS: carvediloL 12.5 MG TABLET PO SCH ×2 (09:11→22:00)
[2021-10-27] MEDS: RIFAXIMIN 550 MG TABLET PO SCH ×2 (09:11→22:00)
[2021-10-27] MEDS: CALCIUM (CARBONATE) 500 MG TABLET PO SCH ×3 (09:11→18:07)
[2021-10-27] MEDS: SEVELAMER CARBONATE 800 MG TABLET PO SCH ×3 (09:11→18:07)
[2021-10-27] MEDS: MAGNESIUM OXIDE 400 MG TABLET PO SCH ×2 (09:11→22:00)
[2021-10-27] MEDS: PANTOPRAZOLE 40 MG TABLET PO SCH ×2 (09:11→22:00)
[2021-10-27] MEDS: LACTULOSE 20 GM/30 ML UDCUP PO SCH ×4 (09:12→22:00)
[2021-10-27] MEDS: CHOLECALCIFEROL 5,000 UNIT TABLET PO SCH (09:12)
[2021-10-27] MEDS: INSULIN LISPRO 100 UNIT/ML SUBCUT SCH ×4 (09:17→19:00)
[2021-10-27] MEDS ORDERED: SODIUM CHLORIDE 0.9% 1,000 ML IV PRN (13:22)
[2021-10-27 14:25] LABS: Hemoglobin 8.7 GM/DL (14.0-18.0)
[2021-10-27] MEDS: POTASSIUM CHLORIDE 10 MEQ TABLET PO SCH ×2 (15:09→21:59)
[2021-10-27] MEDS ORDERED: MAGNESIUM SULF RIDER 2 GM/50 ML PREMIX IV ONE (19:21)
[2021-10-27 19:37] LABS: Arterial Base Excess iSTAT 2 MMOL/L (-2.5-2.5); Arterial Bicarbonate iSTAT 26.8 MMOL/L (20-26); Arterial O2 Saturation iSTAT 98 % (95-100); Arterial PCO2 iSTAT 42 MM HG (35-48); Arterial PO2 iSTAT 113 MM HG (80-95); Arterial Total CO2 iSTAT 28 MMO/L (23-27); Arterial pH iSTAT 7.412 (7.35-7.45)
[2021-10-27 19:59] LABS: Basophils % 0.1 % (0.0-0.8); Eosinophils # 0.1 10*3/uL (0.0-0.87); Eosinophils % 0.9 % (0.00-10.9); Hematocrit 28.4 VOL% (42.0-52.0); Hemoglobin 9.2 GM/DL (14.0-18.0); Immature Granulocytes % 1.6 %; Immature Granulocytes Absolute 0.13 #; Lymphocytes # 1.2 10*3/uL (1.4-4.0); Lymphocytes % 14.9 % (21.2-54.2); Mean Corpuscular HGB Conc 32.4 GM/DL (32-36); Mean Corpuscular Volume 83.5 FL (87-102); Mean Platelet Volume 11.1 FL (9.6-12.0); Monocytes # 0.3 10*3/uL (0.11-0.8); Monocytes % 3.4 % (1.7-12.7); NRBC # 0.02 10*3/uL; Neutrophils % 79.1 % (38.7-73.9); Platelet Count 111 T/CUMM (130-400); Red Cell Distribution Width 14.9 % (9.3-17.3); White Blood Count 8.2 T/CUMM (4-12)
[2021-10-27 20:20] LABS: Calcium 7.3 MG/DL (8.5-10.1); Osmolality,Calculated 279.7 MOS/KG (273-304); Potassium 2.6 MMOL/L (3.5-5.1)
[2021-10-27] MEDS ORDERED: cefTAZidime 1,000 MG in SYRINGE 1 EACH IV SCH (21:00)
[2021-10-27] MEDS ORDERED: POTASSIUM CHLORIDE 20 MEQ TABLET PO ONE (21:06)
[2021-10-27] MEDS ORDERED: cefTAZidime 2,000 MG in SYRINGE 1 EACH IV SCH (21:30)
[2021-10-27] MEDS ORDERED: VANCOMYCIN INJ 1,000 MG in SODIUM CHLORIDE 0.9% 250 ML IV ONE (22:00)
[2021-10-27] MEDS: ATORVASTATIN 40 MG TABLET PO SCH (22:00)
[2021-10-27] MEDS ORDERED: POTASSIUM CHLORIDE INJ 40 MEQ in SODIUM CHLORIDE 0.9% 500 ML IV ONE (22:00)
[2021-10-27] MEDS: TAMSULOSIN 0.4 MG CAPSULE PO SCH (22:01)
[2021-10-27 22:29] LABS: Hematocrit 26.2 VOL% (42.0-52.0); Hemoglobin 8.6 GM/DL (14.0-18.0)
[2021-10-28] MEDS: POTASSIUM CHLORIDE 20 MEQ/10 ML VIAL INTRAPERIT SCH ×4 (06:00→17:45)
[2021-10-28 06:10] LABS: Hematocrit 24.2 VOL% (42.0-52.0); Hemoglobin 7.9 GM/DL (14.0-18.0)
[2021-10-28 06:38] LABS: Albumin 1.1 G/DL (3.4-5.0); Bilirubin,Total 0.5 MG/DL (0.20-1.00); Osmolality,Calculated 282.3 MOS/KG (273-304); Potassium 3.4 MMOL/L (3.5-5.1); Total Protein 3.5 G/DL (6.4-8.2)
[2021-10-28] MEDS ORDERED: SODIUM CHLORIDE 0.9% 1,000 ML IV PRN (08:30)
[2021-10-28] MEDS: CALCIUM (CARBONATE) 500 MG TABLET PO SCH ×3 (09:12→17:44)
[2021-10-28] MEDS: RIFAXIMIN 550 MG TABLET PO SCH (09:13)
[2021-10-28] MEDS: POTASSIUM CHLORIDE 10 MEQ TABLET PO SCH ×2 (09:13→17:45)
[2021-10-28] MEDS: MAGNESIUM OXIDE 400 MG TABLET PO SCH (09:13)
[2021-10-28] MEDS: SEVELAMER CARBONATE 800 MG TABLET PO SCH ×3 (09:13→17:44)
[2021-10-28] MEDS: CHOLECALCIFEROL 5,000 UNIT TABLET PO SCH (09:14)
[2021-10-28] MEDS: LACTULOSE 20 GM/30 ML UDCUP PO SCH ×3 (09:14→17:44)
[2021-10-28] MEDS: PANTOPRAZOLE 40 MG TABLET PO SCH (09:14)
[2021-10-28] MEDS: INSULIN LISPRO 100 UNIT/ML SUBCUT SCH ×4 (09:14→20:27)
[2021-10-28] MEDS: carvediloL 12.5 MG TABLET PO SCH (09:14)
[2021-10-28] MEDS: ONDANSETRON 4 MG/2 ML VIAL IV PRN (12:09)
[2021-10-28] MEDS: POTASSIUM CHLORIDE RIDER 10 MEQ/100 ML PREMIX IV PRN ×2 (12:17→17:44)
[2021-10-28 14:25] LABS: Hematocrit 32.6 VOL% (42.0-52.0); Hemoglobin 10.6 GM/DL (14.0-18.0)
[2021-10-28] MEDS: MENTHOL/ZINC OXIDE OINT 71 GM JAR TOP SCH (16:18)
[2021-10-28 19:38] LABS: Basophils % 0.2 % (0.0-0.8); Eosinophils # 0.1 10*3/uL (0.0-0.87); Eosinophils % 0.8 % (0.00-10.9); Hematocrit 32.5 VOL% (42.0-52.0); Hemoglobin 10.3 GM/DL (14.0-18.0); Immature Granulocytes % 1.2 %; Immature Granulocytes Absolute 0.13 #; Lymphocytes # 1.1 10*3/uL (1.4-4.0); Lymphocytes % 9.6 % (21.2-54.2); Mean Corpuscular HGB Conc 31.7 GM/DL (32-36); Mean Corpuscular Volume 87.6 FL (87-102); Mean Platelet Volume 10.8 FL (9.6-12.0); Monocytes # 0.5 10*3/uL (0.11-0.8); Monocytes % 4.1 % (1.7-12.7); NRBC # 0.02 10*3/uL; Neutrophils % 84.1 % (38.7-73.9); Platelet Count 80 T/CUMM (130-400); Red Blood Count 3.71 MC/CUMM (3.8-5.5); Red Cell Distribution Width 15.4 % (9.3-17.3); White Blood Count 10.9 T/CUMM (4-12)
[2021-10-29] MEDS: PANTOPRAZOLE 40 MG VIAL IV SCH ×3 (00:13→20:43)
[2021-10-29] MEDS: MENTHOL/ZINC OXIDE OINT 71 GM JAR TOP SCH ×3 (00:21→20:44)
[2021-10-29] MEDS: POTASSIUM CHLORIDE 20 MEQ/10 ML VIAL INTRAPERIT SCH ×2 (00:21→07:53)
[2021-10-29] MEDS: ATORVASTATIN 40 MG TABLET PO SCH (00:22)
[2021-10-29] MEDS: carvediloL 12.5 MG TABLET PO SCH ×2 (00:22→08:58)
[2021-10-29] MEDS: POTASSIUM CHLORIDE 10 MEQ TABLET PO SCH ×4 (00:22→23:33)
[2021-10-29] MEDS: RIFAXIMIN 550 MG TABLET PO SCH ×2 (00:22→08:57)
[2021-10-29] MEDS: MAGNESIUM OXIDE 400 MG TABLET PO SCH ×2 (00:22→11:33)
[2021-10-29] MEDS: LACTULOSE 20 GM/30 ML UDCUP PO SCH ×2 (00:22→08:57)
[2021-10-29] MEDS: TAMSULOSIN 0.4 MG CAPSULE PO SCH (00:22)
[2021-10-29] MEDS: ONDANSETRON 4 MG/2 ML VIAL IV PRN (08:42)
[2021-10-29] MEDS: INSULIN LISPRO 100 UNIT/ML SUBCUT SCH (08:57)
[2021-10-29] MEDS: SEVELAMER CARBONATE 800 MG TABLET PO SCH ×3 (08:58→23:33)
[2021-10-29] MEDS: CALCIUM (CARBONATE) 500 MG TABLET PO SCH (08:58)
[2021-10-29] MEDS: CHOLECALCIFEROL 5,000 UNIT TABLET PO SCH (09:00)
[2021-10-29 09:22] LABS: Basophils % 0.2 % (0.0-0.8); Eosinophils # 0.1 10*3/uL (0.0-0.87); Eosinophils % 0.4 % (0.00-10.9); Hematocrit 32.4 VOL% (42.0-52.0); Hemoglobin 10.2 GM/DL (14.0-18.0); Immature Granulocytes Absolute 0.12 #; Lymphocytes # 0.9 10*3/uL (1.4-4.0); Lymphocytes % 7.7 % (21.2-54.2); Mean Corpuscular HGB Conc 31.5 GM/DL (32-36); Mean Platelet Volume 11.8 FL (9.6-12.0); Monocytes # 0.5 10*3/uL (0.11-0.8); Monocytes % 3.9 % (1.7-12.7); NRBC # 0.02 10*3/uL; Neutrophils % 86.8 % (38.7-73.9); Platelet Count 66 T/CUMM (130-400); Red Cell Distribution Width 15.7 % (9.3-17.3); White Blood Count 12.2 T/CUMM (4-12)
[2021-10-29 09:43] LABS: Albumin 1.1 G/DL (3.4-5.0); Bilirubin,Total 0.4 MG/DL (0.20-1.00); Calcium 7.2 MG/DL (8.5-10.1); Osmolality,Calculated 277.7 MOS/KG (273-304); Potassium 4.1 MMOL/L (3.5-5.1); Total Protein 3.7 G/DL (6.4-8.2)
[2021-10-29 09:46] LABS: Platelet Estimate Decreased
[2021-10-29 22:52] VITALS: BP 78/49
== END 2021-10-29 21:55 | disposition expired | DRG 441 ==
LOC: EDUNIT# → EDBD → N.ED 10:30 → N.EDINP 14:32 → SUATTDRO 14:32 → N.5E 15:47
PROVIDERS: ADMIT Internal Medicine; ATTEND Internal Medicine